=== PATIENT | female | born 1965 | race Caucasian/White ===

== ENCOUNTER 2020-08-12 21:19 | Observation (INO) ==
[2020-08-12] MEDS ORDERED: SODIUM CHLORIDE 0.9% 1000ML 500 ML IV ONE (21:37)
[2020-08-12] MEDS ORDERED: METOPROLOL TARTRATE 1 MG/ML VIAL IV STA (21:43)
[2020-08-12] MEDS ORDERED: METOPROLOL TARTRATE 1 MG/ML VIAL IV ONE (21:45)
[2020-08-12 21:50] LABS: Basophils # (auto) 0.04 K/uL (0-0.2); Basophils % (auto) 0.4 %; Eosinophils % (auto) 2.8 %; Hematocrit (blood only) 45.2 % (37-47); Hemoglobin 15.4 g/dL (12.0-16.0); Immature Granulocytes # (auto) 0.02 K/uL (0.00-0.02); Immature Granulocytes % (auto) 0.2 %; Lymphocytes # (auto) 2.48 K/uL (1.2-3.4); Lymphocytes % (auto) 22.9 %; Mean Corpuscular Hemoglobin 30.1 pg (25-34); Mean Corpuscular Hgb Conc 34.1 g/dL (32-36); Mean Corpuscular Volume 88.3 fL (80-100); Mean Platelet Volume 13.3 fL (7.4-10.4); Monocytes % (auto) 7.4 %; Neutrophils # (auto) 7.19 K/uL (1.4-6.5); Neutrophils % (auto) 66.3 %; Platelet Count 194 K/uL (130-400); RDW Coefficient of Variation 13.7 % (11.5-14.5); RDW Standard Deviation 44.5 fL (36.4-46.3); Red Blood Count 5.12 M/uL (4.2-5.4); White Blood Count 10.83 K/uL (4.8-10.8)
--- NOTE | 2020-08-12 21:53 | Emergency Department Note ---
Impression & Plan Atrial fibrillation with RVR, Chest pain, Encounter for smoking cessation counseling ED Provider Note NAME: KRAIG DUTTON AGE: 54 SEX: F : 1965 ARRIVES VIA: Walk-In INFORMANT: Patient, ED PROVIDER(S): Estevan Baker MD Chief Complaint: Chest pain, palpitation HPI: Patient states that around 8-9 o'clock today the patient was watching television when she had a bout of palpitations. The patient did have some associated chest pain that is central nonradiating. Patient denies any shortness of breath or lower extremity swelling. The patient does use tobacco. The patient denies any alcohol or drug use. Patient states that she has had a history of hypertension as well as A. fib. The patient did have a bout of A. fib proximally 5 years ago. The patient does not take any blood thinning medications. Patient denies any thyroid problems. The patient denies any history of DVT or PE. Patient denies any trauma. Patient believes that she has been hydrating well with a normal diet and appetite. Nothing is made her symptoms any better or worse and they have been persistent during this time. ROS: See HPI for pertinent positives and negatives. A total of 10 systems were reviewed and otherwise negative. Past medical history: See below Surgical history: See below Social history: See below Physical Exam: GENERAL: Wearing a mask. NAD, non-toxic. EYE EXAM: Normal conjunctiva. PERRL, no anisocoria and EOM's grossly intact w/o pain. NECK: Supple, no nuchal rigidity, no adenopathy, non-tender. No signs of meningismus. LUNGS: Clear to auscultation. Normal chest wall mechanics. HEART: Tachycardic and irregularly irregular, no MRG. ABDOMEN: Abdomen soft, non-tender, normo-active bowel sounds, no masses, no rebound or guarding. BACK: No CVA TTP. SKIN: No rashes and no bruising. UPPER EXTREMITIES: Upper extremities are grossly normal. LOWER EXTREMITIES: Grossly normal, no edema. Negative Homans sign bilaterally. NEURO EXAM: A&O x3, cranial nerves II-XII grossly intact, normal speech, moves all 4 extremities on command w/o issue. Differential diagnoses: Premature contractions, electrolyte abnormality, cardiac dysrhythmia, thyroid dysfunction, pulmonary embolism, infection, gastr ointestinal, as well as other pathologies. Course: Patient was seen and evaluated the bedside. Full history physical exam was performed. EKG: Indication: Palpitations A fib w/ RVR, rate of 181, normal QRS and normal axis, ST depressions in lateral and lead 1 and 2. Imaging Studies: 1 view chest x-ray No obvious effusion, consolidation, or pneumothorax. Cardiac monitoring: An order was placed for continuous cardiac monitoring. The monitor shows a rate of 155 with irregularly irregular rhythm. MDM: Patient was seen due to concern for palpitations. The patient does have a recurrence of her A. fib. Patient was given Lopressor given her prior history of Bystolic. Patient was also given IV fluids and blood work was obtained. Blood work shows virtually normal white count of 10.8. The patient's kidney function is unremarkable. The patient does not have a detectable troponin. Ch est x-ray clear by my read. Patient did have improvement in her vital signs including heart rate. The patient was in the low 100s upon reassessment. Heparin drip was ordered. I did speak with the on-call hospitalist and the patient was admitted to the medicine service under Dr. Daniels. Critical Care: I have personally spent 45 minutes of critical care time in direct management of this patient. This includes bedside care, interpretation of diagnostic studies, and testing, discussion with consultants, patient, and family members, and other require inpatient management activities. This 45 minutes is in excess of all separately billable procedures. I counseled patient on smoking cessation for 3 minutes. Treatment options discussed and resources provided. Patient was receptive. 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 Beliefs That Will Affect Care: None Current Living Situation: Significant Other Current Living Situation Comment: LIVES S/O [place] Feels Safe at Home: Yes Allergies Allergies Allergy/AdvReac Type Severity Reaction Status Date / Time Penicillins Allergy Mild Rash Verified 08/12/20 22:34 Home Meds Home Medications Medication Instructions Recorded Confirmed hydrochlorothiazide 25 mg PO QAM 02/25/20 08/12/20 nebivolol [Bystolic] 10 mg PO QAM 02/25/20 08/12/20 amlodipine 10 mg PO DAILY 08/12/20 08/12/20 aspirin 325 mg PO .TODAY 08/12/20 08/12/20 Results & Data (ED) Vital Signs Vital Signs - 24 hr 08/12/20 21:32 08/12/20 21:38 08/12/20 21:49 Temperature 36.7 C Temperature Source Oral Pulse Rate 190 H 186 H Pulse Rate from SpO2 Sensor Pulse Rhythm Irregular Pulse Strength Bounding Respiratory Rate 26 H Respiratory Effort / Characteristics Spontaneous Short of Breath Respiratory Depth Normal Respiratory Pattern Regular Blood Pressure 162/118 H 162/118 H Blood Pressure Mean 132 Blood Pressure Position Lying Pulse Oximetry 95 97 Oxygen Delivery Method Room Air Room Air Sepsis Recent Fever Within 48 Hours No Sepsis New/Unexplained Change in Mental Status No Sepsis Action Taken by Nursing No Action Required 08/12/20 21:50 08/12/20 22:00 08/12/20 22:16 Temperature Temperature Source Pulse Rate 154 H 141 H 153 H Pulse Rate from SpO2 Sensor 125 H 101 H 132 H Pulse Rhythm Pulse Strength Respiratory Rate 14 15 17 Respiratory Effort / Characteristics Respiratory Depth Respiratory Pattern Blood Pressure 169/128 H 170/136 H 170/135 H Blood Pressure Mean 138 147 161 Blood Pressure Position Pulse Oximetry 94 96 95 Oxygen Delivery Method Sepsis Recent Fever Within 48 Hours Sepsis New/Unexplained Change in Mental Status Sepsis Action Taken by Nursing 08/12/20 22:30 08/12/20 22:40 08/12/20 22:46 Temperature Temperature Source Pulse Rate 153 H 150 H 147 H Pulse Rate from SpO2 Sensor 124 H 119 H Pulse Rhythm Pulse Strength Respiratory Rate 19 17 Respiratory Effort / Characteristics Respiratory Depth Respiratory Pattern Blood Pressure 172/134 H 172/134 H 147/119 H Blood Pressure Mean 135 124 Blood Pressure Position Pulse Oximetry 94 94 Oxygen Delivery Method Sepsis Recent Fever Within 48 Hours Sepsis New/Unexplained Change in Mental Status Sepsis Action Taken by Nursing 08/12/20 23:01 08/12/20 23:15 08/12/20 23:22 Temperature Temperature Source Pulse Rate 141 H 139 H 137 H Pulse Rate from SpO2 Sensor 117 H 101 H 119 H Pulse Rhythm Pulse Strength Respiratory Rate 15 20 22 Respiratory Effort / Characteristics Respiratory Depth Respiratory Pattern Blood Pressure 158/117 H 146/128 H 165/132 H Blood Pressure Mean 134 135 140 Blood Pressure Position Pulse Oximetry 96 94 95 Oxygen Delivery Method Room Air Room Air Room Air Sepsis Recent Fever Within 48 Hours Sepsis New/Unexplained Change in Mental Status Sepsis Action Taken by Nursing 08/12/20 23:30 Temperature Temperature Source Pulse Rate 132 H Pulse Rate from SpO2 Sensor 101 H Pulse Rhythm Pulse Strength Respiratory Rate 24 Respiratory Effort / Characteristics Respiratory Depth Respiratory Pattern Blood Pressure 174/124 H Blood Pressure Mean 150 Blood Pressure Position Pulse Oximetry 95 Oxygen Delivery Method Room Air Sepsis Recent Fever Within 48 Hours Sepsis New/Unexplained Change in Mental Status Sepsis Action Taken by [facility] Medications Current Medication List: was personally reviewed by me Laboratory Data Attestation: I reviewed the patient's lab results. Result diagrams: 08/12/20 21:41 08/12/20 21:41 Lab Results 08/12/20 08/12/20 08/12/20 Range/Units 21:41 21:41 21:41 WBC 10.83 H (4.8-10.8) K/uL RBC 5.12 (4.2-5.4) M/uL Hgb 15.4 (12.0-16.0) g/dL Hct 45.2 (37-47) % MCV 88.3 (80-100) fL MCH 30.1 (25-34) pg MCHC 34.1 (32-36) g/dL RDW Std Deviation 44.5 (36.4-46.3) fL RDW Coeff of Lucia 13.7 (11.5-14.5) % Plt Count 194 (130-400) K/uL MPV 13.3 H (7.4-10.4) fL Immature Gran % (Auto) 0.2 % Neut % (Auto) 66.3 % Lymph % (Auto) 22.9 % [place] % (Auto) 7.4 % Eos % (Auto) 2.8 % Baso % (Auto) 0.4 % Neut # (Auto) 7.19 H (1.4-6.5) K/uL Lymph # (Auto) 2.48 (1.2-3.4) K/uL [place] # (Auto) 0.80 H (0.11-0.59) K/uL Eos # (Auto) 0.30 (0-0.5) K/uL Baso # (Auto) 0.04 (0-0.2) K/uL Immature Gran # (Auto) 0.02 (0.00-0.02) K/uL PT 10.1 (9.0-12.0) Seconds INR 1.0 (0.9-1.1) APTT 30.8 (21.0-31.0) Seconds PTT Ratio 1.1 Sodium 143 (136-145) mmol/L Potassium 3.5 (3.5-5.1) mmol/L Chloride 108 H (98-107) mmol/L Carbon Dioxide 24 (21-32) mmol/L Anion Gap 11.0 (3-11) BUN 15 (7-18) mg/dl Creatinine 1.18 (0.6-1.2) mg/dl Est Cr Clr Drug Dosing 57.8 ml/min Est GFR ( Amer) 61.4 Est GFR (Non-Af Amer) 53.0 BUN/Creatinine Ratio 13.1 (10-20) Glucose 121 H (70-99) mg/dl Calcium 9.5 (8.5-10.1) mg/dl Phosphorus 3.9 (2.5-4.9) mg/dl Magnesium 2.3 (1.8-2.4) mg/dl Total Bilirubin 0.6 (0.2-1) mg/dl AST 17 (15-37) U/L ALT 15 (12-78) U/L Alkaline Phosphatase 120 H (45-117) U/L Troponin I < 0.015 (0-0.045) ng/ml Total Protein 8.0 (6.4-8.2) gm/dl Albumin 3.9 (3.4-5.0) gm/dl Globulin 4.1 H (2.5-4.0) gm/dl Albumin/Globulin Ratio 0.9 (0.9-2) Lipase 85 (73-393) U/L Administered Medications Metoprolol Tartrate (Metoprolol Tartrate 1 Mg/Ml Vial) 5 mg IV Q5M PRN PRN Reason: Tachycardia Stop: 09/11/20 21:42 Last Admin: 08/12/20 23:22 Dose: 5 mg Documented by: [id number] Admin: 08/12/20 22:40 Dose: 5 mg Documented by: [id number] Discontinued Medications Sodium Chloride (Nss 1000ml) 500 mls @ 999 mls/hr IV .Q31M ONE Stop: 08/12/20 22:07 Last Infusion: 08/12/20 22:50 Dose: 0 mls/hr Documented by: [id number] Admin: 08/12/20 21:51 Dose: 999 mls/hr Documented by: [id number] Sodium Chloride (Nss) 250 mls @ 999 mls/hr IV .Q16M ONE Stop: 08/12/20 23:10 Last Infusion: 08/12/20 23:46 Dose: 0 mls/hr Documented by: [id number] Admin: 08/12/20 23:21 Dose: 999 mls/hr Documented by: [id number] Metoprolol Tartrate (Metoprolol Tartrate 1 Mg/Ml Vial) 5 mg IV NOW STA Stop: 08/12/20 21:44 Last Admin: 08/12/20 21:49 Dose: 5 mg Documented by: [id number] Metoprolol Tartrate (Metoprolol Tartrate 1 Mg/Ml Vial) Confirm Administered Dose 5 mg IV .STK-MED ONE Stop: 08/12/20 21:46 Last Admin: 08/12/20 21:53 Dose: Not Given Documented by: [id number] Discharge Plan Visit Data Chief Complaint: Chest Pain Stated Complaint: CHEST PAIN ED Provider: Estevan Baker Discharge Problem: Atrial fibrillation with RVR, Chest pain, Encounter for smoking cessation counseling Forms Stand Alone Forms: [employer] Prescriptions Prescriptions: No Action aspirin 325 mg Tablet 325 mg PO .TODAY RF: 0 amlodipine 10 mg Tablet 10 mg PO DAILY RF: 0 hydrochlorothiazide 25 mg Tablet 25 mg PO QAM RF: 0 Bystolic 10 mg Tablet 10 mg PO QAM RF: 0 Discharge Problem: Chest pain Qualifiers: Chest pain type: unspecified Qualified Code(s): R07.9 - Chest pain, unspecified
[2020-08-12 22:05] LABS: Partial Thromboplastin Ratio 1.1; Partial Thromboplastin Time 30.8 Seconds (21.0-31.0); Prothrombin Time 10.1 Seconds (9.0-12.0)
[2020-08-12 22:25] LABS: Alanine Aminotransferase 15 U/L (12-78); Albumin Globulin Ratio 0.9 (0.9-2); Albumin Level 3.9 gm/dl (3.4-5.0); Alkaline Phosphatase 120 U/L (45-117); BUN Creatinine Ratio 13.1 (10-20); Bilirubin,Total 0.6 mg/dl (0.2-1); Blood Urea Nitrogen 15 mg/dl (7-18); Calcium 9.5 mg/dl (8.5-10.1); Carbon Dioxide 24 mmol/L (21-32); Chloride 108 mmol/L (98-107); Creatinine Clr Calc Pharmacy 57.8 ml/min; Est GFR (African American) 61.4; Globulin 4.1 gm/dl (2.5-4.0); Glucose 121 mg/dl (70-99); Lipase 85 U/L (73-393); Phosphorus 3.9 mg/dl (2.5-4.9); Potassium 3.5 mmol/L (3.5-5.1); Sodium 143 mmol/L (136-145); Troponin I < 0.015 ng/ml (0-0.045)
[2020-08-12 22:31] LABS: Aspartate Aminotransferase 17 U/L (15-37); Magnesium 2.3 mg/dl (1.8-2.4)
[2020-08-12] MEDS: METOPROLOL TARTRATE 1 MG/ML VIAL IV PRN ×2 (22:40→23:22)
[2020-08-12] MEDS ORDERED: SODIUM CHLORIDE 0.9% 250 ML IV ONE (22:55)
[2020-08-13] MEDS ORDERED: ALUMINUM/MAGNESIUM SUSP 30 ML UDC PO PRN (01:32)
[2020-08-13] MEDS ORDERED: POLYETHYLENE (MIRALAX) 17 GM PACK PO PRN (01:32)
[2020-08-13] MEDS ORDERED: ACETAMINOPHEN 325 MG TAB PO PRN (01:32)
[2020-08-13] MEDS ORDERED: Heparin IV Standard *NO* Bolus IV SCH (01:32)
[2020-08-13] MEDS ORDERED: ASPIRIN 325 MG ECTAB PO SCH (01:32)
[2020-08-13] MEDS ORDERED: HEPARIN SODIUM/DEXTROSE 25,000 UNITS/500 ML BAG IV SCH (01:32)
[2020-08-13] MEDS: METOPROLOL TARTRATE 1 MG/ML VIAL IV PRN ×3 (02:34→03:10)
[2020-08-13] MEDS: POTASSIUM CHLORIDE / WTR 10 MEQ/100 ML PLCT IV SCH ×4 (02:57→06:19)
[2020-08-13] MEDS: SODIUM CHLORIDE 0.9% 1000ML 1,000 ML IV SCH ×2 (03:18→15:56)
--- NOTE | 2020-08-13 04:36 | History & Physical Report ---
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 Optimizing Potassium goal of 4 Patient scored 2 on chads vascular, 2.2% annual stroke risk discussed risk benefits of anticoagulation patient would like to anticoagulate at this time, will order heparin drip for now and convert to direct factor X a inhibitor of patient's insurance choosing on discharge Case management consulted for help in this regard Chest pain Patient with chest pain, likely secondary to palpitations, not present at present Troponin negative x1 we will continue to trend history of catheterization without any evidence of vascular disease at the time several years ago per patient EKG with any chest pain and reassessment Fluid/electrolyte/nutrition: Heart healthy diet, LR at 80 mils per hour with K riders DVT prophylaxis: Heparin drip Dispel: Admit to med telemetry for rate management and continue monitoring Full code (2) Chest pain: (3) Encounter for smoking cessation counseling: Admission and Anticipated Discharge Date Admission Date: August 13, 2020 History of Present Illness Chief Complaint: Chest Pain, Palpitations Primary Care Provider: Carlos Allen with past medical history of atrial fibrillationIs a 54-year-old woman patient is 52-year-old woman past medical history of atrial fibrillation and hypertension who presents today with several hours of chest pain and her palpitations. She has had a similar presentation 5 years ago when she was first diagnosed atrial fibrillation since that time she is been on Bystolic amlodipine and hydrochlorothiazide as well as daily aspirin. She did have a cardiac catheterization to look for possible ischemic heart disease, but that was a negative study. She has not had this sensation since that time. Currently chest pain is improved although heart is still racing on presentation emergency department patient had heart rates in the 130s and 140s, blood pressure was hypertensive respirate temp and O2 sats within normal limits on room air. Patient denies any recent infections denies fevers chills shortness of breath any breathing troubles, cough, sick contacts, recent travel. Patient also denies any other symptoms on review of systems no abdominal pain nausea vomiting, change in bowel habits, change in urination, skin rashes, muscle ache s. Lab work in the emergency department was significant for a potassium of 3.5 glucose 121 no history of diabetes. Magnesium and phosphorus within normal limits ECG without acute ST changes and showing atrial fibrillation. Chest x- ray negative Allergies Allergy/AdvReac Type Severity Reaction Status Date / Time Penicillins Allergy Mild Rash Verified 08/12/20 22:34 Home Medications Home Medications Medication Instructions Recorded Confirmed Type hydrochlorothiazide 25 mg PO QAM 02/25/20 08/12/20 History nebivolol [Bystolic] 10 mg PO QAM 02/25/20 08/12/20 History amlodipine 10 mg PO DAILY 08/12/20 08/12/20 History aspirin 325 mg PO .TODAY 08/12/20 08/12/20 History Past Med/Surg History Medical History Heart burn Hypertension Obesity Surgical History H/O laparoscopy X 2 History of appendectomy History of cardiac cath [facility] 2014 (NO STENTS) History of dilatation and curettage History of tooth extraction Hx of hysterectomy Family History Grandmother (Maternal) Family history of diabetes mellitus Social History Smoking Status: Current every day smoker Cigarettes Per Day: 27-37 mg of nicotene/day; Second Hand Exposure: Yes (MOTHER SMOKES); Hx Alcohol Use: Yes Alcohol type: hard liquor Hx Substance Use: No Preferred Language: Kiswahili Communication Ability: Effective 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 Beliefs That Will Affect Care: None Current Living Situation: Spouse Current Living Situation Comment: lives with fiance Feels Safe at Home: Yes Safety Concerns: Feels Safe At This Time Review of Systems Review of Systems: All systems reviewed & are unremarkable except as noted in HPI & below Physical Exam Constitutional: well developed and well nourished; no acute distress Eyes: PERRL, conjunctivae normal, anicteric sclerae ENMT: external ear and nose normal, oropharynx normal Respiratory: normal respiratory effort, lungs clear to auscultation Cardiovascular: Rate/Rhythm: + tachycardic; + abnormal rate and + abnormal rhythm Heart Sounds: normal S1 and normal S2; no murmur and no cardiac rub Palpation: normal PMI Vessels: normal peripheral pulses Extremities: no calf tenderness Irregularly irregular Gastrointestinal (Abdomen): normal bowel sounds, soft, nontender, no hepatosplenomegaly Skin: no rashes, warm and dry Results & Data Results & Data ([facility]) Vital Signs (Past 12 Hours) Vital Signs Temp Pulse Resp BP Pulse Ox 08/13/20 00:46 127 H 142/106 H 95 08/13/20 00:31 140 H 150/96 H 94 08/13/20 00:15 147 H 19 155/104 H 95 08/13/20 00:01 144 H 22 145/114 H 96 08/12/20 23:46 134 H 22 187/88 H 95 08/12/20 23:30 132 H 24 174/124 H 95 08/12/20 23:22 137 H 22 165/132 H 95 08/12/20 23:15 139 H 20 146/128 H 94 08/12/20 23:01 141 H 15 158/117 H 96 08/12/20 22:46 147 H 17 147/119 H 94 08/12/20 22:40 150 H 172/134 H 08/12/20 22:30 153 H 19 172/134 H 94 08/12/20 22:16 153 H 17 170/135 H 95 08/12/20 22:00 141 H 15 170/136 H 96 08/12/20 21:50 154 H 14 169/128 H 94 08/12/20 21:49 186 H 162/118 H 08/12/20 21:38 97 08/12/20 21:32 36.7 C 190 H 26 H 162/118 H 95 Code Status & VTE Plan VTE Prophylaxis Plan VTE Prophylaxis will be ordered: Yes Supervising Physician Co-Signing Physician Notes Attending addendum: I have physically seen this patient, have supervised the medical residents activities, and agree with the H&P unless as otherwise noted. Assessment and Plan: Atrial fibrillation with RVR- The patient will be admitted to telemetry for serial cardiac enzymes, serial EKG's, cardiac rhythm monitoring and a 2-D echocardiogram with Dopplers. Hold amlodipine and HCTZ. Continue aspirin and Bystolic. Manage rate with either Lopressor 5 mg IV and or Cardizem 10 mg IV. Target magnesium level to be 2 and potassium to be 4. We need to discuss long-term anticoagulation with patient with a CHADS-Vasc score of 2. Consult cardiology Remainder of orders and notations as noted. Resident Activity Tracking Resident Involvement: Resident Care Provided Care Provided: Adult Hospital Medicine (1) Chest pain Chest pain type: unspecified Qualified Code(s): R07.9 - Chest pain, unspecified
[2020-08-13 06:02] LABS: Basophils # (auto) 0.03 K/uL (0-0.2); Basophils % (auto) 0.3 %; Eosinophils # (auto) 0.11 K/uL (0-0.5); Eosinophils % (auto) 1.2 %; Hematocrit (blood only) 39.4 % (37-47); Immature Granulocytes # (auto) 0.01 K/uL (0.00-0.02); Immature Granulocytes % (auto) 0.1 %; Lymphocytes # (auto) 2.35 K/uL (1.2-3.4); Lymphocytes % (auto) 25.3 %; Mean Corpuscular Hemoglobin 29.5 pg (25-34); Mean Corpuscular Volume 89.5 fL (80-100); Mean Platelet Volume 13.1 fL (7.4-10.4); Monocytes # (auto) 0.63 K/uL (0.11-0.59); Monocytes % (auto) 6.8 %; Neutrophils # (auto) 6.17 K/uL (1.4-6.5); Neutrophils % (auto) 66.3 %; Platelet Count 168 K/uL (130-400); RDW Coefficient of Variation 13.9 % (11.5-14.5)
[2020-08-13] MEDS ORDERED: STAT IV Infusion **Titration per Protocol STA (06:45)
[2020-08-13 06:49] LABS: Albumin Globulin Ratio 0.9 (0.9-2); Albumin Level 3.1 gm/dl (3.4-5.0); BUN Creatinine Ratio 19.1 (10-20); Bilirubin,Total 0.4 mg/dl (0.2-1); Calcium 8.5 mg/dl (8.5-10.1); Creatinine Clr Calc Pharmacy 77.1 ml/min; Est GFR (African American) 87.6; Est GFR (Non-African American) 75.5; Globulin 3.3 gm/dl (2.5-4.0); Thyroid Stimulating Hormone 1.17 uIu/ml (0.300-4.500); Total Protein 6.4 gm/dl (6.4-8.2); Troponin I 0.68 ng/ml (0-0.045)
[2020-08-13] MEDS: dilTIAZem HCL 125 MG in DEXTROSE 5% 100 ML IV SCH (07:17)
--- NOTE | 2020-08-13 07:27 | Hospitalist Progress Note ---
Date of Service August 13, 2020 Assessment & Plan (1) Atrial fibrillation with RVR: Patient 52-year-old woman past with history of atrial fibrillation here for RVR and chest pain Atrial fibrillation with RVR and chest pain Patient tachycardic 140s given 2 doses of 5 mg Lopressor IV emergency department rates down to the 120s Cardiology is seen patient's to start her carvedilol 6.25-day valsartan 160 a day transition heparin drip to apixaban. If blood pressure control still needed may add back amlodipine. And will use spironolactone instead of hydrochlorothiazide if blood pressure control still needs to be augmented with regard to that. Discussion with patient does not convert to sinus rhythm would be to possibly cardiovert her the next few days. second troponin is 0.68, will have cardiology weigh in on this issue Patient scored 2 on chads vascular, 2.2% annual stroke risk discussed risk benefits of anticoagulation patient started on apixaban at this time Chest pain Patient with chest pain, likely secondary to rate troponin elevation likely to demand ischemia audiology will follow and make further recommendations. first troponin negative, second positive Cardiac catheterization 2014 in [place], reportedly had recent biomarkers at that time to suggest an [place]. Overall is nonobstructive coronary disease. EF at that time was 60%. Circumflex was noted to have a 30% stenosis the rest were luminal irregularities DVT prophylaxis: Heparin drip Dispel: Admit to med telemetry for rate management and continue monitoring Full code (2) Chest pain: (3) Encounter for smoking cessation counseling: Tobacco cessation counseling was offered Admission and Anticipated Discharge Date Admission Date: August 13, 2020 Subjective Patient is no further chest pain she continues to be in atrial fibrillation cardiology has seen her and they are mostly concerned about getting her atrial fibrillation are controlled at this time she cannot sense her palpitations Review of Systems Review of Systems: Mild distress and fatigue no headache, blurry or double vision no speech or swallowing issues She describes her chest pain as a pressure sensation Mild shortness of breath, cough or wheezes no abdominal pain, nausea or vomiting, diarrhea or constipation no dysuria, hematuria or frequency no focal joint pain or swelling no back pain, CVA tenderness or radicular pain no bruising, bleeding or rashes no focal signs of weakness or numbness or altered sensation no complaints or anxiety or depression. Physical Exam Physical Exam: The patient appeared well nourished and normally developed. Vital signs as documented. Head exam is normocephalic atraumatic no scleral icterus Neck is without JVD, thyromegaly, or carotid bruits. Lungs are clear to auscultation, no focal loss of breath sounds Cardiac exam, irregularly irregular but rate around 100. Abdominal exam reveals normal bowel sounds, soft non tender, no masses Extremities are nonedematous and both pedal pulses are normal. Neurologic exam is alert and oriented, no focal loss of strength or sensation Skin is without bruises or rashes Psychologically is without concerns for anxiety or depression. Results & Data Results & Data ([facility]) Vital Signs (Past 12 Hours) Vital Signs Temp Pulse Pulse Resp BP BP Pulse Ox 08/13/20 07:20 98.6 F 89 18 154/91 H 95 08/13/20 06:31 98.4 F 137 H 16 151/95 H 95 08/13/20 05:43 134 H 18 152/92 H 93 08/13/20 05:40 131 H 08/13/20 03:54 106 H 08/13/20 03:10 138 H 140/96 08/13/20 02:48 137 H 136/95 08/13/20 02:34 144 H 145/94 H 08/13/20 01:25 98.2 F 112 H 16 150/83 H 95 08/13/20 00:46 127 H 142/106 H 95 08/13/20 00:31 140 H 150/96 H 94 08/13/20 00:15 147 H 19 155/104 H 95 08/13/20 00:01 144 H 22 145/114 H 96 08/12/20 23:46 134 H 22 187/88 H 95 08/12/20 23:30 132 H 24 174/124 H 95 08/12/20 23:22 137 H 22 165/132 H 95 08/12/20 23:15 139 H 20 146/128 H 94 08/12/20 23:01 141 H 15 158/117 H 96 08/12/20 22:46 147 H 17 147/119 H 94 08/12/20 22:40 150 H 172/134 H 08/12/20 22:30 153 H 19 172/134 H 94 08/12/20 22:16 153 H 17 170/135 H 95 08/12/20 22:00 141 H 15 170/136 H 96 08/12/20 21:50 154 H 14 169/128 H 94 08/12/20 21:49 186 H 162/118 H 08/12/20 21:38 97 08/12/20 21:32 98.1 F 190 H 26 H 162/118 H 95 PG Care Time/CCT Total # of Minutes Spent Total Time Spent with Patient: Total time spent is greater than 50% in coordination of care (as documented) at patient's floor/unit and/or counseling patient: Coding Level of Care Code 19096 Subseq Hosp Care Lvl 3 Diagnoses Atrial fibrillation with RVR I48.91 Chest pain R07.9 Chest pain type: unspecified Encounter for smoking cessation counseling Z71.6 (1) Chest pain Chest pain type: unspecified Qualified Code(s): R07.9 - Chest pain, unspecified
--- NOTE | 2020-08-13 08:12 | XRay Report ---
XR chest 1V portable CLINICAL HISTORY: Atypical chest pain COMPARISON STUDY: 06/13/2011 FINDINGS: The heart is the upper limits of normal in size. There is subtle nonspecific interstitial t hickening. There is no focal pulmonary consolidation. There are no pleural effusions.[ IMPRESSION: 1. No evidence of focal pulmonary consolidation 2. Subtle interstitial prominence a finding which may in part be secondary to the patient's body habi tus. ACT 112: Negative or not required by law. Electronically signed by: Rey Brennan M.D. 08/13/2020 8:11 AM
[2020-08-13] MEDS ORDERED: INSULIN GLARGINE SOLOSTAR 100 UNITS/ML 3 ML PEN SC ONE (08:30)
[2020-08-13] MEDS: ASPIRIN 325 MG ECTAB PO SCH (08:54)
[2020-08-13 08:56] LABS: Partial Thromboplastin Ratio 2.4
[2020-08-13] MEDS ORDERED: hydroCHLOROthiazide 25 MG TAB PO SCH (09:00)
[2020-08-13] MEDS ORDERED: METOPROLOL TARTRATE 50 MG TAB PO SCH (09:00)
[2020-08-13 09:02] LABS: Partial Thromboplastin Time 65.8 Seconds (21.0-31.0)
--- NOTE | 2020-08-13 12:28 | Cardiology Consultation ---
Date of Consultation Patient notes that last evening at about 8:30 PM she went into atrial fibrillation with a rapid ventricular response. She notes she had an episode similar to this 5 years ago. In between she has not had any episodes of A. fib. She is symptomatic in the sense that she feels her heart racing and is having fluttering she also describes fatigue associated with it she denies any lightheadedness or dizziness with it. She did not consume any alcohol yesterday or eat anything unusual. It does not sound like there was a specific trigger to her event. She does snore and has some mild daytime somnolence. She has any bleeding bruising dark stools or black stools. She denies any upcoming surgery or colonoscopy or tooth extraction. She denies any chest pain or chest pressure currently she is unaware of any palpitations now with her heart rate improved on the diltiazem drip. 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 She drinks about a pot of coffee a day. In addition she does smoke. She has 5 steps to get into her house and denies any shortness of breath with that. She is able to grocery shop and carry the groceries into the house without any dyspnea. She has a cough fevers chills or sweats. She has any symptoms of hyperthyroidism and her TSH was normal. The resting complete review of systems otherwise negative August 13, 2020 History of Present Illness Attending Physician: Dev Caldwell MD Allergies Allergy/AdvReac Type Severity Reaction Status Date / Time Penicillins Allergy Mild Rash Verified 08/12/20 22:34 Home Medications Home Medications Medication Instructions Recorded Confirmed Type hydrochlorothiazide 25 mg PO QAM 02/25/20 08/12/20 History nebivolol [Bystolic] 10 mg PO QAM 02/25/20 08/12/20 History amlodipine 10 mg PO DAILY 08/12/20 08/12/20 History aspirin 325 mg PO .TODAY 08/12/20 08/12/20 History Patient History Medical History Heart burn Hypertension Obesity Surgical History H/O laparoscopy X 2 History of appendectomy History of cardiac cath [facility] 2014 (NO STENTS) History of dilatation and curettage History of tooth extraction Hx of hysterectomy Family History Grandmother (Maternal) Family history of diabetes mellitus Social History Smoking Status: Current every day smoker Cigarettes Per Day: 27-37 mg of nicotene/day; Second Hand Exposure: Yes (MOTHER SMOKES); Hx Alcohol Use: Yes Alcohol type: hard liquor Hx Substance Use: No Preferred Language: [place] Communication Ability: Effective Metal Treater Required: No Beliefs That Will Affect Care: None Current Living Situation: Spouse Current Living Situation Comment: lives with fiance Feels Safe at Home: Yes Safety Concerns: Feels Safe At This Time Results & Data ([facility]) Vital Signs (Past 12 Hours) Vital Signs Temp Pulse Pulse Resp BP BP Pulse Ox 08/13/20 12:16 164/121 H 08/13/20 11:20 36.7 C 65 17 95 08/13/20 08:46 101 H 168/75 H 08/13/20 07:20 37.0 C 89 18 154/91 H 95 08/13/20 06:31 36.9 C 137 H 16 151/95 H 95 08/13/20 05:43 134 H 18 152/92 H 93 08/13/20 05:40 131 H 08/13/20 03:54 106 H 08/13/20 03:10 138 H 140/96 08/13/20 02:48 137 H 136/95 08/13/20 02:34 144 H 145/94 H 08/13/20 01:25 36.8 C 112 H 16 150/83 H 95 08/13/20 00:46 127 H 142/106 H 95 08/13/20 00:31 140 H 150/96 H 94 HEENT: 2+ carotid upstrokes, no evidence of carotid bruits, jugular venous pressure was normal. Sclera was anicteric. Hearing was normal .Lungs: Clear to auscultation bilaterally no rales rhonchi wheezing Heart: irregular rate and rhythm no appreciable murmurs rubs or gallops Abdomen: soft nontender nondistended positive bowel sounds Extremities: no clubbing cyanosis or edema Psychiatric: She has normal affect Neurologic: She is awake alert and oriented x3 and answers questions appropriately and moves all extremities Her EKG and echocardiogram and laboratory studies were review Impressions: 1. Atrial fibrillation with a rapid ventricular response with a chads 2 Vasc Score of 2 2. Preserved left ventricular systolic function with moderate to severe concentric left ventricular hypertrophy 3. Longstanding hypertension 4. Possible obstructive sleep apnea 5. Minimal troponin elevation likely demand ischemia based on her heart rate and the fact that she has such a thick ventricle I made the following recommendations: stop her heparin and switch her over to apixaban 5 mg twice daily stop her outpatient beta-lester Bystolic which is not very good at lowering blood pressure and switch her over to carvedilol 6.25 mg twice daily Stop her hydrochlorothiazide Add valsartan 160 mg daily to her medical regimen If she continues to be hypertensive then spironolactone would be a better option than hydrochlorothiazide but I would try to uptitrate her valsartan to the max dose first When she is off the Cardizem drip, which can be weaned, amlodipine can be restarted. Her atrial fibrillation started last night at 8:30 PM she was on anticoagulation well within 48 hours. If she does not convert to sinus rhythm on her own we discussed elective cardioversion to restore sinus rhythm especially in light of her being symptomatic.I discussed the risks and benefits to cardioversion with her in detail. Hopefully she will convert into sinus rhythm overnight if not cardioversion could potentially be performed Friday afternoon or Friday. She will need an outpatient sleep study. All this was discussed with the hospitalist service as well as the patient and her
[2020-08-13] MEDS: VALSARTAN 80 MG TAB PO SCH (14:07)
[2020-08-13] MEDS: APIXABAN 5 MG TABLET PO SCH ×2 (14:07→20:01)
--- NOTE | 2020-08-13 19:25 | Billing Data ---
Date of Service August 13, 2020 Coding Level of Care Code 63999 Initial Inpt Care Lvl 3
[2020-08-13] MEDS: carvediloL 6.25 MG TAB PO SCH (20:01)
[2020-08-14] MEDS: dilTIAZem HCL 125 MG in DEXTROSE 5% 100 ML IV SCH (02:23)
[2020-08-14 04:47] LABS: Basophils # (auto) 0.03 K/uL (0-0.2); Basophils % (auto) 0.4 %; Eosinophils # (auto) 0.24 K/uL (0-0.5); Hematocrit (blood only) 41.6 % (37-47); Hemoglobin 13.6 g/dL (12.0-16.0); Immature Granulocytes # (auto) 0.02 K/uL (0.00-0.02); Immature Granulocytes % (auto) 0.2 %; Lymphocytes # (auto) 2.63 K/uL (1.2-3.4); Lymphocytes % (auto) 32.5 %; Mean Corpuscular Hemoglobin 29.6 pg (25-34); Mean Corpuscular Hgb Conc 32.7 g/dL (32-36); Mean Corpuscular Volume 90.6 fL (80-100); Mean Platelet Volume 12.9 fL (7.4-10.4); Monocytes # (auto) 0.55 K/uL (0.11-0.59); Monocytes % (auto) 6.8 %; Neutrophils # (auto) 4.63 K/uL (1.4-6.5); Neutrophils % (auto) 57.1 %; Platelet Count 171 K/uL (130-400); RDW Coefficient of Variation 13.9 % (11.5-14.5); RDW Standard Deviation 45.8 fL (36.4-46.3); Red Blood Count 4.59 M/uL (4.2-5.4)
[2020-08-14 04:56] LABS: Partial Thromboplastin Ratio 1.2; Partial Thromboplastin Time 33.8 Seconds (21.0-31.0)
[2020-08-14] MEDS: SODIUM CHLORIDE 0.9% 1000ML 1,000 ML IV SCH (07:41)
[2020-08-14] MEDS: VALSARTAN 80 MG TAB PO SCH (07:42)
[2020-08-14] MEDS: APIXABAN 5 MG TABLET PO SCH (07:42)
[2020-08-14] MEDS: carvediloL 6.25 MG TAB PO SCH (07:42)
[2020-08-14] MEDS: ASPIRIN 325 MG ECTAB PO SCH (07:42)
--- NOTE | 2020-08-14 07:49 | Cardiology Progress Note ---
Date of Service August 14, 2020 Assessment & Plan Admission and Anticipated Discharge Date Admission Date: August 13, 2020 Subjective She feels well this morning. She does not feel any palpitations. She denies any lightheadedness or dizziness. She denies any shortness of breath. She had no dizziness getting out of bed to the chair. She remains on diltiazem at 5 mg/h. When attempting to wean the diltiazem her heart rates going to the 1 teens and 20s. In reviewing her equipment monitor phototypesetting she remains in atrial fibrillation. She denies any presyncope syncope or lower extremity edema. She notes she slept wel l last evening. Results & Data ([facility]) Vital Signs (Past 12 Hours) Vital Signs Temp Pulse Pulse Resp BP Pulse Ox 08/14/20 07:38 130/90 08/14/20 07:19 36.8 C 99 H 18 93 08/14/20 03:45 36.8 C 76 18 157/106 H 94 08/13/20 23:46 87 08/13/20 23:25 36.9 C 88 18 143/91 H 92 HEENT: 2+ carotid upstrokes, no evidence of carotid bruits, jugular venous pressure was normal. Sclera was anicteric. Hearing was normal .Lungs: Clear to auscultation bilaterally no rales rhonchi wheezing Heart: irregular rate and rhythm no appreciable murmurs rubs or gallops Abdomen: soft nontender nondistended positive bowel sounds Extremities: no clubbing cyanosis or edema Psychiatric: She has normal affect Neurologic: She is awake alert and oriented x3 and answers questions appropriately and moves all extremities Her EKG and echocardiogram and laboratory studies were review Impressions: 1. Atrial fibrillation with a rapid ventricular response with a chads 2 Vasc Score of 2 2. Preserved left ventricular systolic function with moderate to severe concentric left ventricular hypertrophy 3. Longstanding hypertension 4. Possible obstructive sleep apnea 5. Minimal troponin elevation likely demand ischemia based on her heart rate and the fact that she has such a thick ventricle We will attempt to cardiovert her this afternoon if we can arrange this with anesthesia on the cardiac catheterization lab as well as the [facility] physician group attending. I discussed the risks and benefits of cardioversion with her in detail. Assuming she can be cardioverted this afternoon, she could be discharged home and I would discharge her on the following medications: 1. Coreg 12-1/2 mg twice daily 2. Amlodipine 10 mg daily 3. Valsartan 160 mg daily 4. Apixaban 5 mg twice daily She will need 10 to 14-day follow-up in the office. Given the severity of her left ventricular hypertrophy which is in the moderate to severe range I would consider genetic testing to rule out HCM on the outside chance she has some genetic variant. Further recommendations will be forthcoming
--- NOTE | 2020-08-14 09:15 | Electrocardiogram Report ---
Test Reason : Blood Pressure : / mmHG Vent. Rate : 181 BPM Atrial Rate : 170 BPM P-R Int : 000 ms QRS Dur : 086 ms QT Int : 264 ms P-R-T Axes : 000 005 193 degrees QTc Int : 458 ms Atrial fibrillation with rapid ventricular response with premature ventricular or aberrantly conducte d complexes Marked ST abnormality, possible inferolateral subendocardial injury Abnormal ECG When compared with ECG of 15-FEB-2020 11:34, Significant changes have occurred Confirmed by Nael Austin ([id number]) on 08/14/2020 9:14:47 AM Referred By: REFERRED SELF Confirmed By:Nael Austin
--- NOTE | 2020-08-14 10:16 | Hospitalist Progress Note ---
Date of Service August 14, 2020 Assessment & Plan (1) Atrial fibrillation with RVR: Patient 52-year-old woman past with history of atrial fibrillation here for RVR and chest pain Atrial fibrillation with RVR and chest pain Patient tachycardic 140s given 2 doses of 5 mg Lopressor IV emergency department rates down to the 120s HR better today on diltiazem drip, 90-100 at rest, up to 130-140 when walking to the bathroom and washing up cardiology recommends cardioversion, unfortunately it cannot be done today, plan for tomorrow morning at 730am continue Apixaban for full anticoagulation on Coreg, dose increased to 12.5mg BID for BP control likely home tomorrow after cardioversion Patient scored 2 on chads vascular, 2.2% annual stroke risk discussed risk benefits of anticoagulation patient started on apixaban at this time Chest pain due to afib with RVR, no further symptoms troponin bumped to 0.68, represents demand ischemia, not a true NSTEMI Cardiac catheterization 2015 in [place], Overall is nonobstructive coronary dis ease. EF at that time was 60%. Circumflex was noted to have a 30% stenosis the rest were luminal irregularities DVT prophylaxis: apixaban Full code (2) Chest pain: no further episodes, it was due to afib with RVR (3) Encounter for smoking cessation counseling: Tobacco cessation counseling was offered (4) Hypertension: not adequately controlled on admission will increase Coreg to 12.5mg BID (this was changed from Bystolic) continue Valsartan 160mg daily once off the Diltiazem drip can resume Norvasc 10mg daily BP is better this morning, continue above regimen Admission and Anticipated Discharge Date Admission Date: August 13, 2020 Subjective patient remains in atrial fibrillation, HR in the 90-100s at rest, up to 130- 140's on exertion remains on diltiazem 5mg/hr spoke with Dr Lama, planned for cardioversion, unfortunately anesthesia is not available today will allow her to eat and plan for cardioversion tomorrow morning, NPO after midnight reviewed chart, reviewed labs appreciate Dr. Lama's recommendations for medication changes, her blood pressure is better on Coreg, Valsartan Review of Systems Review of Systems: All systems reviewed & are unremarkable except as noted in Subjective Constitutional: no fever, no chills and no sweats Respiratory: no cough and no dyspnea Cardiovascular: no chest pain, no dyspnea, no palpitations and no edema Gastrointestinal: no abdominal pain, no nausea, no vomiting, no constipation and no diarrhea/loose stools Physical Exam Constitutional: well developed, well nourished and + overweight; no acute distress Eyes: PERRL, conjunctivae normal, anicteric sclerae ENMT: external ear and nose normal, oropharynx normal Neck: trachea midline, no thyromegaly Respiratory: normal respiratory effort, lungs clear to auscultation Cardiovascular: Rate/Rhythm: regular rate and + irregularly irregular Heart Sounds: normal S1 and normal S2; no murmur Vessels: no JVD Extremities: normal capillary refill; no edema Gastrointestinal (Abdomen): normal bowel sounds, soft, nontender, no hepatosplenomegaly Musculoskeletal: no cyanosis or clubbing, extremities motor strength 5/5 Skin: no rashes, warm and dry Neurologic: patellar DTR's 2+ bilat, sensation intact and PERRL, EOMI, accommodation nl, no face palsy, no dysarthria Psychiatric: A+Ox3, euthymic affect Lymphatic: no cervical or axillary lymphadenopathy Results & Data Results & Data ([facility]) Vital Signs (Past 12 Hours) Vital Signs Temp Pulse Pulse Resp BP Pulse Ox 08/14/20 07:38 130/90 08/14/20 07:19 36.8 C 99 H 18 93 08/14/20 03:45 36.8 C 76 18 157/106 H 94 08/13/20 23:46 87 08/13/20 23:25 36.9 C 88 18 143/91 H 92 Laboratory Results Laboratory Results - last 24 hr 08/13/20 08/14/20 08/14/20 10:44 04:36 04:36 WBC 8.10 RBC 4.59 Hgb 13.6 Hct 41.6 MCV 90.6 MCH 29.6 MCHC 32.7 RDW Std Deviation 45.8 RDW Coeff of Lucia 13.9 Plt Count 171 MPV 12.9 H Immature Gran % (Auto) 0.2 Neut % (Auto) 57.1 Lymph % (Auto) 32.5 [place] % (Auto) 6.8 Eos % (Auto) 3.0 Baso % (Auto) 0.4 Neut # (Auto) 4.63 Lymph # (Auto) 2.63 [place] # (Auto) 0.55 Eos # (Auto) 0.24 Baso # (Auto) 0.03 Immature Gran # (Auto) 0.02 APTT 33.8 H PTT Ratio 1.2 Troponin I 0.671 H* Medications Administered Current Inpatient Medications Acetaminophen (Acetaminophen 325 Mg Tab) 650 mg PO Q4H PRN PRN Reason: Pain or Fever Stop: 09/12/20 01:31 Al Hydrox/Mg Hydrox/Simethicone (Aluminum/Magnesium Susp 30 Ml Udc) 15 ml PO Q4H PRN PRN Reason: Dyspepsia Stop: 09/12/20 01:31 Apixaban (Apixaban 5 Mg Tablet) 5 mg PO BID [facility] Stop: 09/12/20 12:29 Last Admin: 08/14/20 07:42 Dose: 5 mg Documented by: Aspirin (Aspirin 325 Mg Ectab) 325 mg PO DAILY [facility] Stop: 09/12/20 08:59 Last Admin: 08/14/20 07:42 Dose: 325 mg Documented by: Carvedilol (Carvedilol 12.5 Mg Tab) 12.5 mg PO BID [facility] Stop: 09/13/20 20:59 Sodium Chloride (Nss 1000ml) 1,000 mls @ 15 mls/hr IV .Q24H [facility] Stop: 09/12/20 01:31 Last Admin: 08/14/20 07:41 Dose: 15 mls/hr Documented by: Diltiazem HCl 125 mg/ Dextrose 125 mls @ 5 mls/hr IV .Q24H ELISHA; Protocol Stop: 09/12/20 06:59 Last Titration: 08/14/20 07:23 Dose: 5 mg/hr, 5 mls/hr Documented by: Miscellaneous (Pending Order) 1 ea N/A QSHIFT [facility] Stop: 09/12/20 15:59 Last Admin: 08/14/20 07:22 Dose: Not Given Documented by: Polyethylene Glycol (Polyethylene (Miralax) 17 Gm Pack) 17 gm PO DAILY PRN PRN Reason: Constipation Stop: 09/12/20 01:31 Valsartan (Valsartan 80 Mg Tab) 160 mg PO QAM [facility] Stop: 09/12/20 12:59 Last Admin: 08/14/20 07:42 Dose: 160 mg Documented by: PG Care Time/CCT Total # of Minutes Spent Total Time Spent with Patient: Total time spent is greater than 50% in coordination of care (as documented) at patient's floor/unit and/or counseling patient: Coding Level of Care Code 03124 Subseq Hosp Care Lvl 2 Diagnoses Atrial fibrillation with RVR I48.91 Chest pain R07.9 Chest pain type: unspecified Encounter for smoking cessation counseling Z71.6 Hypertension I10 (1) Chest pain Chest pain type: unspecified Qualified Code(s): R07.9 - Chest pain, unspecified
--- NOTE | 2020-08-14 14:08 | Electrocardiogram Report ---
Test Reason : Blood Pressure : / mmHG Vent. Rate : 066 BPM Atrial Rate : 066 BPM P-R Int : 146 ms QRS Dur : 080 ms QT Int : 462 ms P-R-T Axes : 041 016 034 degrees QTc Int : 484 ms Poor data quality, interpretation may be adversely affected Normal sinus rhythm Poor R-wave progression: anterior [place] vs. lead placement vs. LVH Abnormal ECG When compared with ECG of 12-AUG-2020 21:29, Significant changes have occurred Confirmed by Nael Austin ([id number]) on 08/14/2020 2:08:01 PM Referred By: REFERRED SELF Confirmed By:Nael Austin
--- NOTE | 2020-08-14 15:40 | Discharge Summary ---
Date of Service August 14, 2020 Admission HPI Per Admitting Provider with past medical history of atrial fibrillationIs a 54-year-old woman patient is 52-year-old woman past medical history of atrial fibrillation and hypertension who presents today with several hours of chest pain and her palpitations. She has had a similar presentation 5 years ago when she was first diagnosed atrial fibrillation since that time she is been on Bystolic amlodipine and hydrochlorothiazide as well as daily aspirin. She did have a cardiac catheterization to look for possible ischemic heart disease, but that was a negative study. She has not had this sensation since that time. Currently chest pain is improved although heart is still racing on presentation emergency department patient had heart rates in the 130s and 140s, blood pressure was hypertensive respirate temp and O2 sats within normal limits on room air. Patient denies any recent infections denies fevers chills shortness of breath any breathing troubles, cough, sick contacts, recent travel. Patient also denies any other symptoms on review of systems no abdominal pain nausea vomiting, change in bowel habits, change in urination, skin rashes, muscle aches. Lab work in the emergency department was significant for a potassium of 3.5 glucose 121 no history of diabetes. Magnesium and phosphorus within normal limits ECG without acute ST changes and showing atrial fibrillation. Chest x- ray negative Principal Diagnosis Atrial fibrillation with RVR, converted to sinus rhythm Discharge Exam Constitutional well developed, well nourished and + overweight; no acute distress Eyes PERRL, conjunctivae normal, anicteric sclerae ENMT external ear and nose normal, oropharynx normal Neck trachea midline, no thyromegaly Respiratory normal respiratory effort, lungs clear to auscultation Cardiovascular Rate/Rhythm: regular rate and regular rhythm Heart Sounds: normal S1 and normal S2; no murmur Vessels: no JVD Extremities: normal capillary refill; no edema Gastrointestinal (Abdomen) normal bowel sounds, soft, nontender, no hepatosplenomegaly Musculoskeletal no cyanosis or clubbing, extremities motor strength 5/5 Skin no rashes, warm and dry Neurologic patellar DTR's 2+ bilat, sensation intact and PERRL, EOMI, accommodation nl, no face palsy, no dysarthria Psychiatric A+Ox3, euthymic affect Lymphatic no cervical or axillary lymphadenopathy Discharge Data Allergies Allergy/AdvReac Type Severity Reaction Status Date / Time Penicillins Allergy Mild Rash Verified 08/12/20 22:34 Consultations 08/12/20 22:33 ED Decision to Admit Stat 08/13/20 04:53 Consult Case Management - Discharge Planning Routine 08/13/20 07:32 Consult Cardiology Routine Procedures Performed Operation Date: 08/15/20 07:30 <No data on this case meets the specified criteria> Hospital Course (1) Atrial fibrillation with RVR: Patient 52-year-old woman past with history of atrial fibrillation here for RVR and chest pain Atrial fibrillation with RVR and chest pain Patient tachycardic 140s given 2 doses of 5 mg Lopressor IV emergency department rates down to the 120s HR better today on diltiazem drip, 90-100 at rest, up to 130-140 when walking to the bathroom and washing up cardiology recommended cardioversion, was put on hold, then patient spontaneously converted in the morning observed on monitor until afternoon, remained in sinus rhythm so discharged to home continue Apixaban for full anticoagulation on Coreg, dose increased to 12.5mg BID for BP control Patient scored 2 on chads vascular, 2.2% annual stroke risk discussed risk benefits of anticoagulation patient started on apixaban at this time follow up with PCP and Dr. Lama Chest pain due to afib with RVR, no further symptoms troponin bumped to 0.68, represents demand ischemia, not a true NSTEMI Cardiac catheterization 2015 in [place], Overall is nonobstructive coronary disease. EF at that time was 60%. Circumflex was noted to have a 30% stenosis the rest were luminal irregularities DVT prophylaxis: apixaban Full code (2) Chest pain: no further episodes, it was due to afib with RVR (3) Encounter for smoking cessation counseling: Tobacco cessation counseling was offered (4) Hypertension: not adequately controlled on admission will increase Coreg to 12.5mg BID (this was changed from Bystolic) continue Valsartan 160mg daily continue Norvasc 10mg daily BP is better this morning, continue above regimen Total Time Total Time Spent Total Time Spent (In Minutes): 35 minutes Total Time Includes: Examination of the Patient, Discharge Planning, Medication Reconciliation and Communication With Other Providers (Dr. 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 Lama, ups driver - ELIQUIS: 5mg twice a day, this is for anticoagulation with atrial fibrillation, may not need to take this roasterman if you remain in normal sinus rhythm - ASPIRIN: reduce to 81mg daily Atrial fibrillation: converted to normal sinus rhythm with diltiazem drip will discharge home on carvedilol, Eliquis recommend follow up with Dr. Lama in 10-14 days with [facility] cardiology group Hypertension: blood pressure was uncontrolled on prior regimen Dr. Lama recommended changing Bystolic to Coreg 12.5mg twice a day added valsartan 160mg daily stop Hydrochlorothiazide follow up with PCP and Dr. Lama it is recommended that you get a referral from your PCP for sleep study as outpatient to look for undiagnosed sleep apnea as this can cause uncontrolled high blood pressure Pending Studies at Discharge: No Stand-Alone Forms: My [facility] [employer], Smoking Cessation Medications and DC Order Prescriptions: New Eliquis 5 mg Tablet 5 mg PO BID 30 Days Qty: 60 RF: 3 carvedilol 12.5 mg Tablet 12.5 mg PO BID 30 Days Qty: 60 RF: 3 valsartan 160 mg tablet 160 mg PO DAILY Qty: 30 RF: 3 aspirin 81 mg tablet,delayed release (DR/EC) 81 mg PO DAILY Qty: 30 RF: 0 Continued amlodipine 10 mg Tablet 10 mg PO DAILY RF: 0 Discontinued aspirin 325 mg Tablet 325 mg PO .TODAY RF: 0 hydrochlorothiazide 25 mg Tablet 25 mg PO QAM RF: 0 Bystolic 10 mg Tablet 10 mg PO QAM RF: 0 Discharge Orders: Discharge Order (Routine); Ordered 08/14/20 Ordered By: Maulik Méndez Admission Data Admit Date/Time: 08/13/20 00:31 Attending Provider: Maulik Méndez Admit Provider: Dilshad Lawson Primary Care Provider: Carlos Allen Other Providers: Kevin Silva ; Elio Lama Other Interventions: Discharge Summary Assessment (RN) Last Done: 08/14/20 16:04 Coding Level of Care Code D/C Day Management >30 mins Diagnoses Atrial fibrillation with RVR I48.91 Chest pain R07.9 Chest pain type: unspecified Encounter for smoking cessation counseling Z71.6 Hypertension I10
[2020-08-14] MEDS ORDERED: carvediloL 12.5 MG TAB PO SCH (21:00)
== END 2020-08-14 16:15 | disposition home or self-care (01) ==
LOC: ED 21:19 → INTOOBSV 08-13 00:31 → SUATTDRO 08-13 00:31 → 2N 08-13 00:31 → 2E 08-13 06:38 → SUATTDRO 08-13 15:43

== ENCOUNTER 2022-01-31 03:59 | Observation (INO) ==
[2022-01-31] MEDS ORDERED: SODIUM CHLORIDE 0.9% 500 ML IV STA (04:24)
--- NOTE | 2022-01-31 04:33 | Emergency Department Note ---
Impression & Plan Atrial fibrillation with rapid ventricular response, Left-sided chest pain Admit to the [facility] ED Provider Note NAME: KRAIG DUTTON AGE: 56 SEX: F ARRIVES VIA: Ambulance INFORMANT: Patient ED PROVIDER(S): Sunitha Romero DO CHIEF COMPLAINT: Chest pain and A. fib PLAN: Disposition: Admit to the Health System Condition: Guarded MEDICAL DECISION MAKING: This is a 56-year-old female patient who presents to the emergency department with sudden onset of A. fib and chest pain at 3 AM this morning. The patient has a history of A. fib and she presented in A. fib with rapid ventricular response for EMS. She was given 20 mg of IV Cardizem which controlled her rate but also dropped her blood pressure. Patient's chest pressure persisted. The patient was given IV diltiazem here in the emergency department along with IV Lopressor which only slightly controlled her rate. Her chest pressure was treated with IV fentanyl. Troponin was negative. There is no ischemic changes noted on the EKG. [facility] for further management. Triage Nursing notes reviewed and agree with them. Additional history obtained from who is at the bedside Prior medical records reviewed Vital Signs: reviewed and remarkable for tachycardia Differential diagnosis: Cardiac ischemia, STEMI, NSTEMI, A. fib with RVR ER treatment provided: IV Cardizem IV metoprolol IV fentanyl Diagnostics interpreted by me: ECG: Atrial fibrillation with RVR at a rate of 106. There is no ST segment elevation or signs of ischemia. Cardiac Monitoring: A. fib at a rate of 113 Repeat EKG as the patient was having chest pain: Atrial fibrillation with rapid ventricular response at a rate of [address] segment elevation or s igns of ischemia. Laboratory studies: See below Imaging studies: As per my interpretation Portable chest x-ray: No acute evidence of pulmonary edema or other pathology HPI: 56/F arrives for evaluation of chest pain. Go from sleep at 3 AM with substernal chest discomfort. She has a history of atrial fibrillation and could tell that she had an irregular heart rate. The patient has had no other preceding symptoms other than a urinary tract infection for which she recently completed antibiotics. At this time, the chest pain feels better. ROS: See above HPI for pertinent positives & negatives. A total of 10 systems reviewed and were otherwise negative. PAST MEDICAL HISTORY:A. fib; hypertension PAST SURGICAL HISTORY:See Below FAMILY HISTORY:See Below SOCIAL HISTORY:The patient lives with her . HOME MEDICATIONS:See Below ALLERGIES:See Below VITALS:See Below PHYSICAL EXAMINATION: HEENT: Head - normocephalic and atraumatic Pupils are equal, round, and reactive to light. Extraocular eye muscles are intact, and sclera are anicteric. Nose - moist nasal mucosa without discharge. Mouth - moist buccal mucosa. Oropharynx is nonerythematous and there is no tonsillar exudate or edema noted. Neck: Supple; no JVD, nuchal rigidity, cervical lymphadenopathy, or auscultated bruits. Heart: Tachycardic rate with an irregularly irregular rhythm there is a normal S1 and S2 with no murmurs, clicks, or gallops appreciated. Lungs: Clear to auscultation bilaterally with no wheezes, rales, or rhonchi. Abdomen: Soft, completely nontender, nondistended, with good bowel sounds. There are no palpable pulsatile masses or hepatosplenomegaly. There is no guarding, rigidity, or rebound noted. Extremities: No evidence of cyanosis, clubbing, or edema. There are easily palpable peripheral pulses. Skin: warm and dry with good turgor and no rashes. ED COURSE: Times/Reassessments: 0410: The patient was evaluated in room A11. A complete history and physical was performed. Laboratory studies were drawn as above. An order was placed for continuous cardiac monitoring. The patient was in atrial fibrillation with rapid ventricular response at a rate of 112. A twelve-lead EKG was obtained. Chest x-ray was performed. The patient was given 10 mg of IV Cardizem with only minimal control of her rate. I reviewed previous records where she had received IV Lopressor which gave her better control of the rate. At that point I ordered 5 mg of IV Lopressor but this did not control her rate this time at all. The patient began to complain of worsening chest discomfort and she was given 75 mcg of IV fentanyl which did give her some relief of the pain. I discussed the case with the [facility] hospitalist and they will evaluate for further management. Sunitha Romero, Past Med/Surg History Medical History Atrial fibrillation with RVR Chest pain Encounter for smoking cessation counseling Heart burn Hypertension Obesity Surgical History H/O laparoscopy X 2 History of appendectomy History of cardiac cath [facility] 2014 (NO STENTS) History of dilatation and curettage History of tooth extraction Hx of hysterectomy Family History Grandmother (Maternal) Family history of diabetes mellitus Social History Smoking Status: Current every day smoker Tobacco Type: E-cigarettes / Vaping Cigarettes Per Day: 27-37 mg of nicotene/day; Second Hand Exposure: Yes (MOTHER SMOKES); Tobacco Cessation Education Requested by Patient: No Hx Alcohol Use: Yes Alcohol type: hard liquor Hx Substance Use: No Preferred Language: Luxembourgish Communication Ability: Effective 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 Beliefs That Will Affect Care: None Current Living Situation: Spouse Current Living Situation Comment: lives with fiance Other Information That Helps Us Care for You: No Feels Safe at Home: Yes Safety Concerns: Feels Safe At This Time Assistive Devices: Glasses Allergies Allergies Allergy/AdvReac Type Severity Reaction Status Date / Time Penicillins Allergy Mild Rash Verified 01/31/22 07:24 Home Meds Home Medications Medication Instructions Recorded Confirmed carvedilol 12.5 mg tablet 18.75 mg PO BID 01/31/22 01/31/22 chlorthalidone 25 mg tablet 12.5 mg PO DAILY 01/31/22 01/31/22 nifedipine 90 mg tablet,extended 90 mg PO DAILY 01/31/22 01/31/22 release 24 hr valsartan 160 mg tablet 320 mg PO DAILY 01/31/22 01/31/22 Previous Rx's Medication Instructions Recorded apixaban 5 mg tablet (Eliquis) 5 mg PO BID 30 Days #60 tab 08/14/20 Results & Data (ED) Vital Signs Vital Signs - 24 hr 01/31/22 04:09 01/31/22 04:29 01/31/22 04:30 Temperature 36.5 C Temperature Source Oral Pulse Rate 109 H 109 H Pulse Rate [Finger] 109 H Pulse Rhythm [Finger] Respiratory Rate 18 18 Respiratory Effort / Characteristics Non-Labored Spontaneous Non-Labored Spontaneous Respiratory Depth Normal Normal Respiratory Pattern Blood Pressure 94/77 L Blood Pressure [Right Arm] 94/77 L Blood Pressure Mean 82 Blood Pressure Mean [Right Arm] 82 Blood Pressure Position Lying Blood Pressure Position [Right Arm] Lying Pulse Oximetry 95 95 95 Oxygen Delivery Method Room Air Room Air Room Air Sepsis Recent Fever Within 48 Hours No Sepsis New/Unexplained Change in Mental Status No Sepsis Action Taken by Nursing No Action Required 01/31/22 04:59 01/31/22 06:13 01/31/22 06:44 Temperature Temperature Source Pulse Rate 129 H Pulse Rate [Finger] 136 H 115 H 129 H Pulse Rhythm [Finger] Respiratory Rate 18 18 18 Respiratory Effort / Characteristics Non-Labored Spontaneous Non-Labored Spontaneous Non-Labored Spontaneous Respiratory Depth Normal Normal Normal Respiratory Pattern Blood Pressure 107/74 Blood Pressure [Right Arm] 128/105 H 139/86 120/85 Blood Pressure Mean Blood Pressure Mean [Right Arm] 112 103 96 Blood Pressure Position Blood Pressure Position [Right Arm] Lying Lying Lying Pulse Oximetry 95 92 93 Oxygen Delivery Method Room Air Room Air Room Air Sepsis Recent Fever Within 48 Hours Sepsis New/Unexplained Change in Mental Status Sepsis Action Taken by Nursing 01/31/22 07:20 Temperature Temperature Source Pulse Rate Pulse Rate [Finger] 110 H Pulse Rhythm [Finger] Irregular Respiratory Rate 20 Respiratory Effort / Characteristics Non-Labored Spontaneous Respiratory Depth Normal Respiratory Pattern Regular Blood Pressure Blood Pressure [Right Arm] 127/93 Blood Pressure Mean Blood Pressure Mean [Right Arm] 104 Blood Pressure Position Blood Pressure Position [Right Arm] Pulse Oximetry 96 Oxygen Delivery Method Room Air Sepsis Recent Fever Within 48 Hours Sepsis New/Unexplained Change in Mental Status Sepsis Action Taken by Nursing Laboratory Data Result diagrams: 01/31/22 04:07 01/31/22 04:07 Lab Results 01/31/22 01/31/22 01/31/22 Range/Units 04:07 04:07 04:07 WBC 8.79 (4.8-10.8) K/uL RBC 4.36 (4.2-5.4) M/uL Hgb 12.9 (12.0-16.0) g/dL Hct 38.9 (37-47) % MCV 89.2 (80-100) fL MCH 29.6 (25-34) pg MCHC 33.2 (32-36) g/dL RDW Std Deviation 45.6 (36.4-46.3) fL RDW Coeff of Lucia 13.9 (11.5-14.5) % Plt Count 181 (130-400) K/uL MPV 12.8 H (7.4-10.4) fL Immature Gran % (Auto) 0.1 % Neut % (Auto) 66.7 % Lymph % (Auto) 26.2 % [place] % (Auto) 5.0 % Eos % (Auto) 1.8 % Baso % (Auto) 0.2 % Neut # (Auto) 5.86 (1.4-6.5) K/uL Lymph # (Auto) 2.30 (1.2-3.4) K/uL [place] # (Auto) 0.44 (0.11-0.59) K/uL Eos # (Auto) 0.16 (0-0.5) K/uL Baso # (Auto) 0.02 (0-0.2) K/uL Immature Gran # (Auto) 0.01 (0.00-0.02) K/uL Sodium 138 (136-145) mmol/L Potassium 3.2 L (3.5-5.1) mmol/L Chloride 105 (98-107) mmol/L Carbon Dioxide 25 (21-32) mmol/L Anion Gap 8 (3-11) BUN 20 (6-23) mg/dl Creatinine 0.88 (0.6-1.2) mg/dl Est Cr Clr Drug Dosing 75.2 ml/min Est GFR ( Amer) 86.3 ml/min Est GFR (Non-Af Amer) 74.5 ml/min BUN/Creatinine Ratio 22.7 H (10-20) Glucose 128 H (70-99(Fasting)) mg/dl Calcium 8.0 L (8.5-10.1) mg/dl Magnesium 2.0 (1.7-2.4) mg/dl Total Bilirubin 0.4 (0.2-1.0) mg/dl AST 12 L (13-39) U/L ALT 10 (7-52) U/L Alkaline Phosphatase 93 (34-104) U/L Troponin I 0.03 (0-0.04) ng/ml Total Protein 6.2 (6.0-8.3) gm/dl Albumin 3.8 (3.4-5.0) gm/dl Globulin 2.4 L (2.5-4.0) gm/dl Albumin/Globulin Ratio 1.6 (0.9-2) Lipase 23 (11-82) U/L TSH (0.300-4.500) uIu/ml SARS-CoV-2, RNA, NAAT (NEGATIVE) 01/31/22 01/31/22 Range/Units 04:07 06:12 WBC (4.8-10.8) K/uL RBC (4.2-5.4) M/uL Hgb (12.0-16.0) g/dL Hct (37-47) % MCV (80-100) fL MCH (25-34) pg MCHC (32-36) g/dL RDW Std Deviation (36.4-46.3) fL RDW Coeff of Lucia (11.5-14.5) % Plt Count (130-400) K/uL MPV (7.4-10.4) fL Immature Gran % (Auto) % Neut % (Auto) % Lymph % (Auto) % [place] % (Auto) % Eos % (Auto) % Baso % (Auto) % Neut # (Auto) (1.4-6.5) K/uL Lymph # (Auto) (1.2-3.4) K/uL [place] # (Auto) (0.11-0.59) K/uL Eos # (Auto) (0-0.5) K/uL Baso # (Auto) (0-0.2) K/uL Immature Gran # (Auto) (0.00-0.02) K/uL Sodium (136-145) mmol/L Potassium (3.5-5.1) mmol/L Chloride (98-107) mmol/L Carbon Dioxide (21-32) mmol/L Anion Gap (3-11) BUN (6-23) mg/dl Creatinine (0.6-1.2) mg/dl Est Cr Clr Drug Dosing ml/min Est GFR ( Amer) ml/min Est GFR (Non-Af Amer) ml/min BUN/Creatinine Ratio (10-20) Glucose (70-99(Fasting)) mg/dl Calcium (8.5-10.1) mg/dl Magnesium (1.7-2.4) mg/dl Total Bilirubin (0.2-1.0) mg/dl AST (13-39) U/L ALT (7-52) U/L Alkaline Phosphatase (34-104) U/L Troponin I (0-0.04) ng/ml Total Protein (6.0-8.3) gm/dl Albumin (3.4-5.0) gm/dl Globulin (2.5-4.0) gm/dl Albumin/Globulin Ratio (0.9-2) Lipase (11-82) U/L TSH 2.798 (0.300-4.500) uIu/ml SARS-CoV-2, RNA, NAAT NEGATIVE (NEGATIVE) Administered Medications Apixaban (Apixaban 5 Mg Tablet) 5 mg PO BID [facility] Stop: 03/02/22 08:59 Last Admin: 01/31/22 09:59 Dose: 5 mg Documented by: [id number] Metoprolol Tartrate (Metoprolol Tartrate 1 Mg/Ml Vial) 5 mg IV Q4 PRN; Protocol PRN Reason: sustained hr>/=120 Stop: 03/02/22 08:04 Last Admin: 01/31/22 11:55 Dose: 5 mg Documented by: [id number] Miscellaneous (Remove Nicoderm Patch) 1 ea N/A DAILY@[id number] [facility] Stop: 03/02/22 08:58 Last Admin: 01/31/22 11:02 Dose: Not Given Documented by: [id number] Discontinued Medications Carvedilol (Carvedilol 25 Mg Tab) 25 mg PO NOW ONE Stop: 01/31/22 08:06 Last Admin: 01/31/22 10:00 Dose: 25 mg Documented by: [id number] Diltiazem HCl (Diltiazem Hcl 5 Mg/Ml 5 Ml Vial) 10 mg IV NOW STA Stop: 01/31/22 05:58 Last Admin: 01/31/22 06:02 Dose: 10 mg Documented by: [id number] Cosigned by: [id number] Fentanyl Citrate (Fentanyl Citrate 100 Mcg/2 Ml Vial) 75 mcg IV NOW ONE Stop: 01/31/22 05:58 Last Admin: 01/31/22 07:19 Dose: 75 mcg Documented by: [id number] Flecainide Acetate (Flecainide Acetate 100 Mg Tablet) 50 mg PO Q12 ELISHA Stop: 03/02/22 11:19 Last Admin: 01/31/22 12:06 Dose: 50 mg Documented by: [id number] Sodium Chloride (Nss) 500 mls @ 999 mls/hr IV .Q31M STA Stop: 01/31/22 04:54 Last Infusion: 01/31/22 05:19 Dose: 0 mls/hr Documented by: [id number] Admin: 01/31/22 04:33 Dose: 999 mls/hr Documented by: [id number] Metoprolol Tartrate (Metoprolol Tartrate 1 Mg/Ml Vial) 5 mg IV NOW STA; Protocol Stop: 01/31/22 04:54 Last Admin: 01/31/22 04:59 Dose: 5 mg Documented by: [id number] Potassium Chloride (Potassium Chloride Crtab 20 Meq Tabcr) 40 meq PO Q6H ELISHA Stop: 01/31/22 14:01 Last Admin: 01/31/22 14:28 Dose: 40 meq Documented by: [id number] Admin: 01/31/22 10:00 Dose: 40 meq Documented by: [id number] Imaging Data Radiologist's Impression: Chest X-Ray 01/31/22 04:25 XR chest 1V portable CLINICAL HISTORY: Atypical chest pain. COMPARISON STUDY: Chest radiograph August 12, 2020. FINDINGS: Lung volumes are normal. Lungs are clear. There is no pneumothorax or pleural effusion. Mild cardiomegaly is noted. Subtle interstitial thickening is unchanged. Mediastinal contours are normal. There is no evidence for pulmonary edema. IMPRESSION: No acute cardiopulmonary findings. No significant change in appearance of the chest. Stable mild interstitial thickening, likely chronic. ACT 112: Negative or not required by law. Electronically signed by: Damian Coffey M.D. 01/31/2022 6:16 AM Discharge Plan Visit Data Chief Complaint: Cardiac Assessment Stated Complaint: CHEST PAIN / AFIB ED Provider: Sunitha Romero Discharge Problem: Atrial fibrillation with rapid ventricular response, Left-sided chest pain Patient Disposition: Admitted As Inpatient Discharge Instructions Interventions: ED Discharge Assessment Last Done: 01/31/22 10:15
[2022-01-31 04:38] LABS: Basophils # (auto) 0.02 K/uL (0-0.2); Basophils % (auto) 0.2 %; Eosinophils # (auto) 0.16 K/uL (0-0.5); Eosinophils % (auto) 1.8 %; Hematocrit (blood only) 38.9 % (37-47); Hemoglobin 12.9 g/dL (12.0-16.0); Immature Granulocytes # (auto) 0.01 K/uL (0.00-0.02); Immature Granulocytes % (auto) 0.1 %; Lymphocytes % (auto) 26.2 %; Mean Corpuscular Hemoglobin 29.6 pg (25-34); Mean Corpuscular Hgb Conc 33.2 g/dL (32-36); Mean Corpuscular Volume 89.2 fL (80-100); Mean Platelet Volume 12.8 fL (7.4-10.4); Monocytes # (auto) 0.44 K/uL (0.11-0.59); Neutrophils # (auto) 5.86 K/uL (1.4-6.5); Neutrophils % (auto) 66.7 %; Platelet Count 181 K/uL (130-400); RDW Coefficient of Variation 13.9 % (11.5-14.5); RDW Standard Deviation 45.6 fL (36.4-46.3); Red Blood Count 4.36 M/uL (4.2-5.4); White Blood Count 8.79 K/uL (4.8-10.8)
[2022-01-31 04:50] LABS: Troponin I 0.03 ng/ml (0-0.04)
[2022-01-31] MEDS ORDERED: METOPROLOL TARTRATE 1 MG/ML VIAL IV STA (04:53)
[2022-01-31 04:56] LABS: Albumin Globulin Ratio 1.6 (0.9-2); Albumin Level 3.8 gm/dl (3.4-5.0); BUN Creatinine Ratio 22.7 (10-20); Bilirubin,Total 0.4 mg/dl (0.2-1.0); Creatinine Clr Calc Pharmacy 75.2 ml/min; Est GFR (African American) 86.3 ml/min; Est GFR (Non-African American) 74.5 ml/min; Globulin 2.4 gm/dl (2.5-4.0); Potassium 3.2 mmol/L (3.5-5.1); Total Protein 6.2 gm/dl (6.0-8.3)
[2022-01-31] MEDS ORDERED: dilTIAZem HCl 5 MG/ML 5 ML VIAL IV STA ×2 (05:57→17:32)
--- NOTE | 2022-01-31 06:17 | XRay Report ---
XR chest 1V portable CLINICAL HISTORY: Atypical chest pain. COMPARISON STUDY: Chest radiograph August 12, 2020. FINDINGS: Lung volumes are normal. Lungs are clear. There is no pneumothorax or pleural effusion. Mil d cardiomegaly is noted. Subtle interstitial thickening is unchanged. Mediastinal contours are normal . There is no evidence for pulmonary edema. IMPRESSION: No acute cardiopulmonary findings. No significant change in appearance of the chest. Sta ble mild interstitial thickening, likely chronic. ACT 112: Negative or not required by law. Electronically signed by: Damian Coffey M.D. 01/31/2022 6:16 AM
[2022-01-31] MEDS: fentaNYL citrate 100 MCG/2 ML VIAL IV ONE ×2 (06:56→07:19)
[2022-01-31] MEDS ORDERED: carvediloL 25 MG TAB PO ONE (08:05)
--- NOTE | 2022-01-31 08:28 | History & Physical Report ---
Date of Service January 31, 2022 Assessment & Plan (1) Atrial fibrillation with rapid ventricular response: Plan: 56-year-old white female with an underlying past medical history of paroxysmal atrial fibrillation and hypertension presented in atrial fibrillation with RVR. * Increase coreg to 25mg BID * IV Lopressor prn * if continued RVR despite max coreg, would be inclined to add Cardizem or Antiarrhythmic medications. * Patient follows with Dr. Lama. I was able to discuss this case with Taylor PARRISH with cardiology to discuss preference. She recommends Flecainide * Continue Eliquis * Update echocardiogram * Cycle out troponin * EKG if conversion to normal sinus rhythm * supplement Potassium * check mag level and TSH (2) Hypokalemia: Plan: * supplement (3) Chest pain: Plan: * Suspect secondary to #1 as resolved with improved rate control * Initial troponin negative and EKG showing atrial fibrillation with variable re sponse but no acute ST/T wave changes * Cycle troponin * Trend EKG * Continue to follow (4) Hypertension: Plan: * Hold antihypertensive medications for now including nifedipine, valsartan, and chlorthalidone as current BP 105/70 * Uptitrating Coreg * Will monitor closely (5) Morbid obesity with BMI of 40.0-44.9, adult: (6) Elevated troponin: Plan: Full code Continue routine Eliquis which will provide adequate DVT prophylaxis Plan of care to be discussed with Dr. Bansal. Further orders as warranted. History of Present Illness Chief Complaint: CP X 30 minutes Primary Care Provider: Carlos Allen Mrs. Lake is a 56-year-old white female with an underlying past medical history of atrial fibrillation and hypertension. She presented to the emergency department complaining of chest pain X 30 minutes. Was awoken from a sleep complaining of substernal chest pain that was described as sharp. Radiated into the back. Rated as a 10/10. Denied cardiac awareness or palpitations but does have a history of underlying atrial fibrillation which prompted her to check her pulse. Could tell she was irregular and tachycardic prompting her to call EMS services. When he met a ride, heart rate was 150s to 170s. Was given Cardizem 10 mg IV in route and upon presentation to the ED, heart rate improved to 115. Was subsequently given Lopressor 5 mg IV and current heart rate is 105-118. Blood pressure stable at 127/93. She denies any further complaints of chest discomfort. Denies SOB, diaphoresis, N/V. Work-up otherwise unremarkable. CBC within normal limits. Metabolic panel shows mild hypokalemia of 3.2. Troponin is negative at 0.03. Covid test is negative. Pt follows with Dr. Lama. Takes Cored 18.75mg BID (did take her dose lastnight as prescribed and is compliant). No excessive caffeine. No ETOH use. No current illness. Patient will be hospitalized for further evaluation and care. Allergies Allergy/AdvReac Type Severity Reaction Status Date / Time Penicillins Allergy Mild Rash Verified 01/31/22 07:24 Home Medications Medication Instructions Recorded Confirmed Type apixaban 5 mg tablet (Eliquis) 5 mg PO BID 30 Days #60 tab 08/14/20 01/31/22 Rx carvedilol 12.5 mg tablet 18.75 mg PO BID 01/31/22 01/31/22 History chlorthalidone 25 mg tablet 12.5 mg PO DAILY 01/31/22 01/31/22 History nifedipine 90 mg tablet,extended 90 mg PO DAILY 01/31/22 01/31/22 History release 24 hr valsartan 160 mg tablet 320 mg PO DAILY 01/31/22 01/31/22 History amiodarone 200 mg tablet 200 mg PO BIDM #60 tab 02/01/22 Rx Past Med/Surg History Medical History Atrial fibrillation with RVR Chest pain Encounter for smoking cessation counseling Heart burn Hypertension Obesity Surgical History H/O laparoscopy X 2 History of appendectomy History of cardiac cath [facility] (NO STENTS) History of dilatation and curettage History of tooth extraction Hx of hysterectomy Family History Grandmother (Maternal) Family history of diabetes mellitus Social History Smoking Status: Current every day smoker Tobacco Type: E-cigarettes / Vaping Cigarettes Per Day: 27-37 mg of nicotene/day; Second Hand Exposure: Yes (MOTHER SMOKES); Tobacco Cessation Education Requested by Patient: No Hx Alcohol Use: Yes Alcohol type: hard liquor Hx Substance Use: No Preferred Language: Hungarian Communication Ability: Effective 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 Beliefs That Will Affect Care: None Current Living Situation: Spouse Current Living Situation Comment: lives with liliane Other Information That Helps Us Care for You: No Feels Safe at Home: Yes Safety Concerns: Feels Safe At This Time Assistive Devices: None Review of Systems Review of Systems: All systems reviewed and are unremarkable except as noted in HPI and below Denies fevers, chills, headache, nasal congestion, sore throat, cough, shortness of breath, palpitations, orthopnea, PND, abdominal pain, nausea, vomiting, diarrhea, constipation, dysuria, hematuria, frequency, back pain, joint pain or swelling, easy bruising or bleeding, skin lesions or rashes. Physical Exam Physical Exam: General: Resting comfortably in her hospital bed. She does not appear ill or toxic. NAD. HEENT: Head is AT/NC. Buccal mucosa is moist and pink Neck: No JVD. Negative hepatojugular reflex Cardiac: Irregularly irregular currently at 110 bpm without M/G/R Lungs: CTA without W/R/R Abdomen: Normoactive X4. Soft and nontender in all quadrants. Extremities: No peripheral clubbing cyanosis or edema Neuro: A&O X4. Cranial nerves II through XII are grossly intact. No focal neuro deficits Skin: No obvious skin lesions or rashes Psych: Appropriate affect. Pleasant and cooperative Results & Data Results & Data ([facility]) Vital Signs (Past 12 Hours) Vital Signs Temp Pulse Pulse Resp BP BP Pulse Ox 01/31/22 07:20 110 H 20 127/93 96 01/31/22 06:44 129 H 18 120/85 93 01/31/22 06:13 115 H 18 139/86 92 01/31/22 04:59 129 H 136 H 18 107/74 128/105 H 95 01/31/22 04:30 95 01/31/22 04:29 109 H 109 H 18 94/77 L 95 01/31/22 04:09 36.5 C 109 H 18 94/77 L 95 Laboratory Results 01/31/22 04:07 01/31/22 04:07 Troponin: 0.03 Diagnostic Findings CXR: No acute cardiopulmonary process. No significant change from prior. Chronic interstitial thickening noted ECG Additional Comments: EKG: Atrial fibrillation with a rate of 115 bpm Supervising Physician Co-Signing Physician Notes Attending Attestation & Admit Note: Pt seen/examined, chart reviewed, care plan d/w PA Marta Chitra. I agree with the miller components of her documentation. 56yo female with history of PAF on beta lester therapy & chronic AC with Eliquis presents with sudden onset chest pain/palpitations/recurrent rapid a.fib. Upon ER presentation had significant rapid a.fib. Initial troponin negative, with 2nd troponin modestly elevated. Following admission, despite her normal BB, her rates remained >100 and cardizem infusion was instituted by Ms Buenrostro. During my assessment rates were finally <100 and her chest pain had resolved. PMH/PSH/allergies/meds/sochx/famhx - reviewed Heart cath - [facility] 01/2015 - L Cx 30%; L main, LAD, RCA - minimal luminal irregularities VSS, no fever gen - obese, NAD neck - no JVD heart - irregular, s1 s2, rate <100; no murmur lungs - CTA b/l abd - soft NT ND BS+ ext - no edema labs reviewed EKG reviewed A/P: Known h/o a.fib. Now with rapid, paroxysmal a.fib. Cont BB; continue cardizem infusion; cont Eliquis. Ms Buenrostro spoke with Dr Lama her primary side hemmer. If patient does not spontaneously cardiovert by the am -- electrical cardioversion is planned at that time. Elevated troponin - 2nd to myocardial demand ischemia in the setting of rapid a.fib. See cath report findings above. Unlikely to have obstructive CAD by this point in time but low threshold to perform additional ischemic w/u as needed. Vikram Bansal MD PG Care Time/CCT Total # of Minutes Spent Total Time Spent with Patient: Total time spent is greater than 50% in coordination of care (as documented) at patient's floor/unit and/or counseling patient: Coding Level of Care Code INT OBSERVATION CARE 70M LVL 3 Diagnoses Atrial fibrillation with rapid ventricular response I48.91 Hypokalemia E87.6 Chest pain R07.9 Hypertension I10 Morbid obesity with BMI of 40.0-44.9, adult E66.01; Z68.41 Elevated troponin R77.8
[2022-01-31] MEDS: APIXABAN 5 MG TABLET PO SCH ×2 (09:59→20:38)
[2022-01-31] MEDS: POTASSIUM CHLORIDE CRTAB 20 MEQ TABCR PO SCH ×2 (10:00→14:28)
[2022-01-31] MEDS ORDERED: ACETAMINOPHEN 325 MG TAB PO PRN (10:47)
[2022-01-31] MEDS ORDERED: POLYETHYLENE (MIRALAX) 17 GM PACK PO PRN (10:47)
[2022-01-31] MEDS ORDERED: MAGNESIUM HYDROXIDE SUSP 30 ML UDC PO PRN (10:47)
[2022-01-31] MEDS ORDERED: ALUMINUM/MAGNESIUM SUSP 30 ML UDC PO PRN (10:47)
[2022-01-31] MEDS ORDERED: MoRPHine SULFATE 2 MG/ML CARP IV PRN (10:47)
[2022-01-31] MEDS ORDERED: NICOTINE 21 MG/24 HR TDSY TD PRN (10:47)
[2022-01-31] MEDS ORDERED: NITROGLYCERIN SL 0.4 MG/TAB TAB SL PRN (10:47)
[2022-01-31] MEDS ORDERED: ONDANSETRON INJ 2 MG/ML 2 ML VIAL IV PRN (10:47)
[2022-01-31] MEDS ORDERED: FLECAINIDE ACETATE 100 MG TABLET PO SCH (11:20)
[2022-01-31] MEDS: METOPROLOL TARTRATE 1 MG/ML VIAL IV PRN ×2 (11:55→17:14)
--- NOTE | 2022-01-31 15:45 | Anesthesiology Consultation ---
Date of Service January 31, 2022 Assessment & Plan Chart Review Chart Review: Acceptable Risk for Surgery and Patient NOT seen in Pre Admission Testing Consults Requested none ASA ASA4 Proposed Anesthesia Anesthesia Type: General History Surgery Operation Date: 02/01/22 07:15 Proposed Procedures p Cardioversion Head Neck Surgeon w/Anesthesia - Elio Lama DO Height/Weight Height: 5 ft Weight: 93.979 kg Allergies Allergy/AdvReac Type Severity Reaction Status Date / Time Penicillins Allergy Mild Rash Verified 01/31/22 07:24 Medications Home Medications Medication Instructions Recorded Confirmed Last Taken apixaban 5 mg tablet (Eliquis) 5 mg PO BID 30 Days #60 tab 08/14/20 01/31/22 01/30/22 carvedilol 12.5 mg tablet 18.75 mg PO BID 01/31/22 01/31/22 01/30/22 chlorthalidone 25 mg tablet 12.5 mg PO DAILY 01/31/22 01/31/22 01/30/22 nifedipine 90 mg tablet,extended 90 mg PO DAILY 01/31/22 01/31/22 01/30/22 release 24 hr valsartan 160 mg tablet 320 mg PO DAILY 01/31/22 01/31/22 01/30/22 Active Medications Generic Name Dose Route Start Last Admin Trade Name Freq PRN Reason Stop Dose Admin Apixaban 5 mg 01/31/22 09:00 01/31/22 09:59 Apixaban 5 Mg Tablet PO 03/02/22 08:59 5 mg BID ELISHA Administration Metoprolol Tartrate 5 mg 01/31/22 08:05 01/31/22 11:55 Metoprolol Tartrate 1 Mg/Ml Vial IV 03/02/22 08:04 5 mg Q4 PRN Administration sustained hr>/=120 Protocol Miscellaneous 1 ea 01/31/22 08:59 01/31/22 11:02 Remove Nicoderm Patch N/A 03/02/22 08:58 Not Given DAILY@0859 [facility], [facility] Past Medical History Medical History Atrial fibrillation with RVR Chest pain Encounter for smoking cessation counseling Heart burn Hypertension Obesity Exercise / Class Metabolic Activity II 4-5 Yardwork/Stairs/Walk up hill Past Family History Family History Grandmother (Maternal) Family history of diabetes mellitus Past Surgical History Surgical History H/O laparoscopy X 2 History of appendectomy History of cardiac cath [facility] 2014 (NO STENTS) History of dilatation and curettage History of tooth extraction Hx of hysterectomy Past Anesthesia History No Hx of Anesthesia Complications and No Family Hx of Anesthesia Complications History of PONV No Hx of PONV and No Hx of Motion Sickness Social History Smoking Status: Current every day smoker tobacco type: e-cigarettes Smoking cigarettes per day: 27-37 mg of nicotene/day Hx Alcohol Use: Yes Alcohol type: hard liquor alcohol intake frequency: holidays/special occasions only Hx Substance Use: No Physical Exam Vital Signs Last Vital Signs Temp 36.8 C 01/31/22 15:11 Pulse 102 H 01/31/22 15:11 Resp 20 01/31/22 15:11 BP 106/70 01/31/22 15:11 Pulse Ox 94 01/31/22 15:11 Testing Laboratory Results 01/31/22 04:07 01/31/22 04:07 Electrocardiogram Date: 01/31/22 Findings: + NSST changes and + AFIB @ (at 115 w/RVR) Chest X-Ray Date: 01/31/22 Findings: + NAD Echocardiogram Date: 08/13/20 EF: 60% LV Function: normal RWMA: + none Other Findings: + atrial enlargement (LA mod.dilated), + LVH (severe) and + diastolic dysfunction (grade 2) Valvular Disease: + no significant valvular disease Cardiac Catheterization Date: 01/20/15 Findings: + RCA (Minimal LI's), + LMA (normal), + LCX (mid 30%) and + pertinent finding (LAD-minimal LI's;LVEDP-26 torr)
[2022-01-31] MEDS ORDERED: STAT IV Infusion **Titration per Protocol STA (17:32)
[2022-01-31] MEDS ORDERED: dilTIAZem HCL 125 MG in DEXTROSE 5% 100 ML IV SCH (17:45)
--- NOTE | 2022-01-31 19:50 | XCELERA ---
[id number]
[2022-01-31] MEDS ORDERED: carvediloL 25 MG TAB PO SCH (21:00)
[2022-02-01] MEDS: APIXABAN 5 MG TABLET PO SCH (04:52)
[2022-02-01] MEDS ORDERED: [UNRECOGNIZED DRUG - REMARK] ONE (05:00)
--- NOTE | 2022-02-01 05:53 | Electrocardiogram Report ---
Test Reason : Blood Pressure : / mmHG Vent. Rate : 106 BPM Atrial Rate : 267 BPM P-R Int : 000 ms QRS Dur : 084 ms QT Int : 378 ms P-R-T Axes : 000 018 028 degrees QTc Int : 502 ms Atrial fibrillation with rapid ventricular response Nonspecific ST abnormality Prolonged QT Abnormal ECG When compared with ECG of 14-AUG-2020 11:42, Atrial fibrillation has replaced Sinus rhythm Vent. rate has increased BY 40 BPM Criteria for Anterior infarct are no longer Present Nonspecific T wave abnormality no longer evident in Anterolateral leads Confirmed by Alexx Bal ([id number]) on 02/01/2022 5:53:05 AM Referred By: REFERRED SELF Confirmed By:Alexx Bal
--- NOTE | 2022-02-01 05:56 | Electrocardiogram Report ---
Test Reason : Blood Pressure : / mmHG Vent. Rate : 115 BPM Atrial Rate : 129 BPM P-R Int : 000 ms QRS Dur : 084 ms QT Int : 360 ms P-R-T Axes : 000 011 021 degrees QTc Int : 498 ms Atrial fibrillation with rapid ventricular response Nonspecific ST and T wave abnormality Prolonged QT Abnormal ECG When compared with ECG of 31-JAN-2022 04:06, No significant change Confirmed by Alexx Bal ([id number]) on 02/01/2022 5:55:59 AM Referred By: REFERRED SELF Confirmed By:Alexx Bal
[2022-02-01] MEDS ORDERED: LIDOCAINE 2% MPF LOCAL 5 ML VIAL INFIL ONE (07:03)
[2022-02-01] MEDS ORDERED: PROPOFOL IV EMULSION 10 MG/ML 20 ML VIAL IV ONE (07:03)
[2022-02-01 07:12] LABS: Hematocrit (blood only) 35.8 % (37-47); Hemoglobin 11.9 g/dL (12.0-16.0); Mean Corpuscular Hgb Conc 33.2 g/dL (32-36); Mean Corpuscular Volume 90.2 fL (80-100); Platelet Count 159 K/uL (130-400); RDW Coefficient of Variation 14.5 % (11.5-14.5); RDW Standard Deviation 47.8 fL (36.4-46.3); Red Blood Count 3.97 M/uL (4.2-5.4)
--- NOTE | 2022-02-01 07:18 | Anesthesiology Consultation ---
Date of Service February 01, 2022 Assessment & Plan (1) Encounter for pre-operative examination: Chart Review Chart Review: Acceptable Risk for Surgery History Surgery Operation Date: 02/01/22 07:15 Proposed Procedures p Cardioversion Railway Yard Assistant w/Anesthesia - Elio Lama DO Height/Weight Height: 5 ft Weight: 94 kg Allergies Allergy/AdvReac Type Severity Reaction Status Date / Time Penicillins Allergy Mild Rash Verified 01/31/22 07:24 Medications Home Medications Medication Instructions Recorded Confirmed Last Taken apixaban 5 mg tablet (Eliquis) 5 mg PO BID 30 Days #60 tab 08/14/20 01/31/22 01/30/22 carvedilol 12.5 mg tablet 18.75 mg PO BID 01/31/22 01/31/22 01/30/22 chlorthalidone 25 mg tablet 12.5 mg PO DAILY 01/31/22 01/31/22 01/30/22 nifedipine 90 mg tablet,extended 90 mg PO DAILY 01/31/22 01/31/22 01/30/22 release 24 hr valsartan 160 mg tablet 320 mg PO DAILY 01/31/22 01/31/22 01/30/22 Active Medications Generic Name Dose Route Start Last Admin Trade Name Freq PRN Reason Stop Dose Admin Apixaban 5 mg 01/31/22 09:00 02/01/22 04:52 Apixaban 5 Mg Tablet PO 03/02/22 08:59 5 mg BID ELISHA Administration Carvedilol 25 mg 01/31/22 21:00 01/31/22 20:38 Carvedilol 25 Mg Tab PO 03/02/22 20:59 25 mg BID ELISHA Administration Metoprolol Tartrate 5 mg 01/31/22 08:05 01/31/22 17:14 Metoprolol Tartrate 1 Mg/Ml Vial IV 03/02/22 08:04 5 mg Q4 PRN Administration sustained hr>/=120 Protocol Miscellaneous 1 ea 01/31/22 08:59 01/31/22 11:02 Remove Nicoderm Patch N/A 03/02/22 08:58 Not Given DAILY@0859 ELISHA Past Medical History Medical History Atrial fibrillation with RVR Chest pain Encounter for smoking cessation counseling Heart burn Hypertension Obesity Past Family History Family History Grandmother (Maternal) Family history of diabetes mellitus Past Surgical History Surgical History H/O laparoscopy X 2 History of appendectomy History of cardiac cath [facility] [place] 2014 (NO STENTS) History of dilatation and curettage History of tooth extraction Hx of hysterectomy Social History Smoking Status: Current every day smoker tobacco type: e-cigarettes Smoking cigarettes per day: 27-37 mg of nicotene/day Hx Alcohol Use: Yes Alcohol type: hard liquor alcohol intake frequency: holidays/special occasions only Hx Substance Use: No Physical Exam Vital Signs Last Vital Signs Temp 36.8 C 02/01/22 04:55 Pulse 103 H 02/01/22 04:55 Resp 16 02/01/22 04:55 BP 134/91 02/01/22 04:55 Pulse Ox 96 02/01/22 04:55 Testing Laboratory Results 02/01/22 07:02 Electrocardiogram Date: 02/01/22 Findings: + AFIB @ (87) Echocardiogram Date: 01/31/22 EF: 60% Other Findings: + LVH (Severe) and + diastolic dysfunction Valvular Disease: + no significant valvular disease
--- NOTE | 2022-02-01 07:37 | Cardioversion ---
Date of Service February 01, 2022 Electrical Cardioversion Rpt Electrical Cardioversion Report Patient was brought to the cardiac catheterization laboratory. She was sedated by the anesthesia department with propofol. Once she was adequately sedated. She was cardioverted with 200 J in a biphasic sync mode x1 with confucianist of normal sinus rhythm. She tolerated the procedure well. At the end of the procedure she was answering questions appropriately and moving all extremities.
[2022-02-01 07:38] LABS: BUN Creatinine Ratio 22.8 (10-20); Calcium 7.9 mg/dl (8.5-10.1); Creatinine Clr Calc Pharmacy 83.4 ml/min; Est GFR (African American) 98.4 ml/min; Est GFR (Non-African American) 84.9 ml/min; Magnesium 2.1 mg/dl (1.7-2.4)
--- NOTE | 2022-02-01 07:45 | Cardiology Consultation ---
Date of Consultation February 01, 2022 History of Present Illness Reason for Consultation: Atrial fibrillation with a rapid ventricular response Attending Physician: Vikram Bansal History of Present Illness Patient awoke from sleep with chest discomfort and knew she was in atrial fibrillation. When heart rates are really fast she just aware of an uneasy feeling but does not actually feel palpitations. In the hospital she was rate controlled. She has been on anticoagulation indefinitely and has not missed any doses. She did not convert with a combination of diltiazem and increasing doses of carvedilol. Cardioversion was planned for this morning. In the Fluid [employer] holding area she is unaware of any palpitations even with a heart rate of about 110 bpm she denies being short of breath. She was laying in bed. She denies any lightheadedness or dizziness. She has no had no further chest pain. She has no lower extremity edema. Unfortunately she has never had a sleep study which she definitely needs and she also vapes on a regular basis. She has any bleeding bruising dark stools or black stools on anticoagulation. Her appetite and weight have been stable. The rest of a complete her systems otherwise negative Allergies Allergy/AdvReac Type Severity Reaction Status Date / Time Penicillins Allergy Mild Rash Verified 01/31/22 07:24 Home Medications Medication Instructions Recorded Confirmed Type apixaban 5 mg tablet (Eliquis) 5 mg PO BID 30 Days #60 tab 08/14/20 01/31/22 Rx carvedilol 12.5 mg tablet 18.75 mg PO BID 01/31/22 01/31/22 History chlorthalidone 25 mg tablet 12.5 mg PO DAILY 01/31/22 01/31/22 History nifedipine 90 mg tablet,extended 90 mg PO DAILY 01/31/22 01/31/22 History release 24 hr valsartan 160 mg tablet 320 mg PO DAILY 01/31/22 01/31/22 History Patient History Medical History Atrial fibrillation with RVR Chest pain Encounter for smoking cessation counseling Heart burn Hypertension Obesity Surgical History H/O laparoscopy X 2 History of appendectomy History of cardiac cath [facility] 2014 (NO STENTS) History of dilatation and curettage History of tooth extraction Hx of hysterectomy Family History Grandmother (Maternal) Family history of diabetes mellitus Social History Smoking Status: Current every day smoker Tobacco Type: E-cigarettes / Vaping Cigarettes Per Day: 27-37 mg of nicotene/day; Second Hand Exposure: Yes (MOTHER SMOKES); Tobacco Cessation Education Requested by Patient: No Hx Alcohol Use: Yes Alcohol type: hard liquor Hx Substance Use: No Preferred Language: Vietnamese Communication Ability: Effective Director Operating Room Required: No Beliefs That Will Affect Care: None Current Living Situation: Spouse Current Living Situation Comment: lives with fiance Other Information That Helps Us Care for You: No Feels Safe at Home: Yes Safety Concerns: Feels Safe At This Time Assistive Devices: None Results & Data ([facility]) Vital Signs (Past 12 Hours) Vital Signs Temp Pulse Pulse Resp BP Pulse Ox 02/01/22 07:38 60 16 104/73 98 02/01/22 07:30 60 16 104/73 98 02/01/22 04:55 36.8 C 103 H 16 134/91 96 01/31/22 23:21 36.9 C 89 18 110/75 95 01/31/22 23:16 90 HEENT: 2+ carotid upstrokes, no evidence of carotid bruits, jugular venous pressure was normal. Sclera was anicteric. Hearing was normal .Lungs: Clear to auscultation bilaterally no rales rhonchi wheezing Heart: irregular rate and rhythm no appreciable murmurs rubs or gallops Abdomen: soft nontender nondistended positive bowel sounds Extremities: no clubbing cyanosis or edema Psychiatric: She has normal affect Neurologic: She is awake alert and oriented x3 and answers questions appropriately and moves all extremities Her EKG and echocardiogram and laboratory studies were review Impressions: 1. Atrial fibrillation with a rapid ventricular response with a chads 2 Vasc Score of 2 2. Preserved left ventricular systolic function with moderate concentric left ventricular hypertrophy With more prominent thickening of the basal septum 3. Longstanding hypertension 4. Possible Obstructive sleep apnea 5. Negative genetic testing for hypertrophic cardiomyopathy 6. Tobacco abuse using vaping products She was successfully cardioverted this morning back to sinus rhythm. I would place her back on 18.75 mg twice daily of her carvedilol. She will remain on her anticoagulation long-term We will start amiodarone 200 mg twice daily. She cannot get flecainide due to her degree of left ventricular hypertrophy. The use of sotalol and Tikosyn carries a higher risk in women compared to men with regards to QTc prolongation. Therefore I would try to avoid these medications. We will use amiodarone as a bridge in order to consider an A. fib ablation. As an outpatient she will need a sleep study which we will arrange for. In addition she will need a cardiac MRI to look at the basal septum. If she were to have delayed enhancement and scarring of her left ventricular cavity with significant thickening of the septum compared to the other hensley it will be important to rule out hypertrophic cardiomyopathy even though her genetic testing was negative. She ultimately may have HCM like physiology secondary to longstanding hypertension. She also needs to stop vaping. We discussed vaping and sleep apnea and obesity as potential triggers of Afib especially as this episode occurred with her sleeping. If she is stable this afternoon she can be discharged from our standpoint. we will see her in the office in the next 10 to 14 days.
[2022-02-01] MEDS ORDERED: AMIODARONE 200 MG TAB PO SCH (08:00)
--- NOTE | 2022-02-01 08:11 | Anesthesiology Progress Note ---
Date of Service February 01, 2022 Anesthesia Post Procedure Vital Signs Vital Signs: Temp Pulse Pulse Resp BP BP Pulse Ox 02/01/22 08:03 36.7 C 62 20 128/89 95 02/01/22 07:45 60 14 112/78 98 02/01/22 07:38 60 16 104/73 98 02/01/22 07:30 60 16 104/73 98 02/01/22 04:55 36.8 C 103 H 16 134/91 96 01/31/22 23:21 36.9 C 89 18 110/75 95 01/31/22 23:16 90 01/31/22 19:30 36.7 C 81 18 102/64 96 01/31/22 17:14 131 H 108/72 01/31/22 15:11 36.8 C 102 H 20 106/70 94 01/31/22 14:55 140 H 01/31/22 12:36 133 H 01/31/22 12:22 36.5 C 122 H 20 105/74 95 01/31/22 11:55 140 H 117/84 01/31/22 10:47 01/31/22 10:15 122 H 18 108/72 96 01/31/22 10:00 94 H 18 108/72 95 01/31/22 09:42 107 H 19 124/86 96 Pulse Ox 02/01/22 08:03 02/01/22 07:45 02/01/22 07:38 02/01/22 07:30 02/01/22 04:55 01/31/22 23:21 01/31/22 23:16 01/31/22 19:30 01/31/22 17:14 01/31/22 15:11 01/31/22 14:55 01/31/22 12:36 01/31/22 12:22 01/31/22 11:55 01/31/22 10:47 95 01/31/22 10:15 01/31/22 10:00 01/31/22 09:42 Pain Intensity Medial Chest: Pain Intensity: 1 Transfer of Care Handoff Completed per policy Notes Mental Status: alert / awake / arousable Patient Amnestic to Procedure: Yes Nausea / Vomiting: adequately controlled Pain: adequately controlled Airway Patency, RR, SpO2: stable & adequate BP & HR: stable & adequate Hydration State: stable & adequate Anesthetic Complications: no major complications apparent
[2022-02-01] MEDS ORDERED: carvediloL 6.25 MG TAB PO SCH (09:00)
--- NOTE | 2022-02-01 17:33 | Discharge Summary ---
Date of Service February 01, 2022 Admission HPI Per Admitting Provider Mrs. Lake is a 56-year-old white female with an underlying past medical history of atrial fibrillation and hypertension. She presented to the emergency department complaining of chest pain X 30 minutes. Was awoken from a sleep complaining of substernal chest pain that was described as sharp. Radiated into the back. Rated as a 10/10. Denied cardiac awareness or palpitations but does have a history of underlying atrial fibrillation which prompted her to check her pulse. Could tell she was irregular and tachycardic prompting her to call EMS services. When he met a ride, heart rate was 150s to 170s. Was given Cardizem 10 mg IV in route and upon presentation to the ED, heart rate improved to 115. Was subsequently given Lopressor 5 mg IV and current heart rate is 105-118. Blood pressure stable at 127/93. She denies any further complaints of chest discomfort. Denies SOB, diaphoresis, N/V. Work-up otherwise unremarkable. CBC within normal limits. Metabolic panel shows mild hypokalemia of 3.2. Troponin is negative at 0.03. Covid test is negative. Pt follows with Dr. Lama. Takes Cored 18.75mg BID (did take her dose lastnight as prescribed and is compliant). No excessive caffeine. No ETOH use. No current illness. Patient will be hospitalized for further evaluation and care. Principal Diagnosis 1. A.Fib with RVR Discharge Exam General: Resting comfortably in her hospital bed. She does not appear ill or toxic. NAD. HEENT: Head is AT/NC. Buccal mucosa is moist and pink Neck: No JVD. Negative hepatojugular reflex Cardiac: Currently in a sinus rhythm with a rate of 62 bpm Lungs: CTA without W/R/R Abdomen: Normoactive X4. Soft and nontender in all quadrants. Extremities: No peripheral clubbing cyanosis or edema Neuro: A&O X4. Cranial nerves II through XII are grossly intact. No focal neuro deficits Skin: No obvious skin lesions or rashes Psych: Appropriate affect. Pleasant and cooperative Discharge Data Allergies Allergy/AdvReac Type Severity Reaction Status Date / Time Penicillins Allergy Mild Rash Verified 01/31/22 07:24 Consultations 01/31/22 06:30 ED Decision to Admit Stat 01/31/22 12:53 Consult Cardiology Routine 01/31/22 15:16 Consult Anesthesiology Routine Procedures Performed Operation Date: 02/01/22 07:15 Actual Procedures p Cardioversion - Elio Lama DO Hospital Course (1) Atrial fibrillation with rapid ventricular response: 56-year-old white female with an underlying past medical history of paroxysmal atrial fibrillation and hypertension presented in atrial fibrillation with RVR. * Awoke with severe chest pain. Checked her pulse and noted it to be fast an irregular prompting evaluation in the ED. * EMS services were notified and in route, given 10 mg of Cardizem IVP for heart rate of 150-180 * Upon presentation into the ED, heart rate was 105-150 * Additional rate controlling medications given in the form of IV Lopressor 5 mg * Patient was hospitalized and plan was to increase her Coreg to 25 mg in hopes to keep rate control * Unfortunately, she remained in A. fib with RVR/variable response requiring a Cardizem drip * Cardiology was consulted and given the fact that she has been anticoagulated with Eliquis and has not missed any doses, she was taken to the operating room on the morning of 02/01 for electrical cardioversion * Tolerated the procedure and is now in a sinus rhythm in the 60 * Cardiology has started amiodarone 200 mg twice a day and recommending continuation of this until seen in follow-up and then will determine necessity for ablation * Continue Coreg at 18.75 mg twice a day as per cardiology * Patient has been hemodynamically stable throughout the day. Will discharge to home to follow-up with cardiology within 10 to 14 days TSH normal Potassium slightly low at 3.2 upon presentation. Has been corrected and is now 4.0 Magnesium normal (2) Hypokalemia: * supplemented and resolved (3) Chest pain: * Suspect secondary to #1 as resolved with improved rate control * Initial troponin negative and EKG showing atrial fibrillation with variable response but no acute ST/T wave changes * Troponin has cycled and elevated at 0.59 * Her chest pain has since resolved and she is not having any EKG changes * Did not peak troponin with repeat labs today as would likely be elevated given cardioversion that has taken place * Suspected to have rate related ischemia * To follow-up with cardiology to discuss additional cardiac work-up (4) Hypertension: * Antihypertensive agents held upfront given Cardizem drip and increased dose of Coreg * BP starting to uptrend at 144/89 * Resume antihypertensive agents upon discharge Plan of care discussed with discussed with Dr. Bansal. Total Time Total Time Spent Total Time Spent (In Minutes): 35 Discharge Plan Discharge Items Patient Disposition: Home - Self-Care Reason For Visit: AFIB WITH RVR Discharge Diagnosis: 1. Atrial fibrillation with rapid ventricular response s/p electrical cardioversion Activity: Resume your previous activity Non-emergency contact: Primary Care Provider and Drive Worker Call non-emergency contact if: you have any medication questions and your symptoms worsen Follow-up/Referrals: Elio Lama DO [Physician] - 02/19/22 (Dr Garcia office will call pt on sunday 02/04) Carlos Allen [Primary Care Provider] - Diet: Heart Healthy Addtl Attending Provider Instructions: You presented to the emergency department complaining of chest pain and were found to be in atrial fibrillation with rapid response Initially, you were placed on medications to help bring your heart rate down; however, you remained in atrial fibrillation. Your motor mechanic was on board during this hospitalization. You had electrical cardioversion on the morning of 02/01 and are subsequently now in a normal rhythm. It is possible that you may go back into atrial fibrillation. Continue your carvedilol at 18.75 mg twice daily as prescribed prior to this hospitalization. In addition, make sure to remain on your Eliquis 5 mg twice daily. You have been started on a new medication called amiodarone which you are to take 200 mg twice daily until you see cardiology in follow-up It is possible that you will have cardiac ablation in the near future. Further management is at the discretion of your motor mechanic. While in the hospital, you had a slightly elevated troponin (cardiac enzyme). It is suspected that this is related to rate related ischemia (decreased blood flow to the heart muscle due to a fast heartbeat) as opposed to a heart attack from an unstable plaque. Again, follow-up with your motor mechanic to discuss need for further work-up. Follow-up with Dr. Lama within 10 to 14 days Return back to the emergency department with any new or worsening symptoms Pending Studies at Discharge: No Stand-Alone Forms: [employer], Work/School Release Medications and DC Order Prescriptions: New amiodarone 200 mg Tablet 200 mg PO BIDM Qty: 60 RF: 0 Continued Eliquis 5 mg Tablet 5 mg PO BID 30 Days Qty: 60 RF: 3 chlorthalidone 25 mg Tablet 12.5 mg PO DAILY RF: 0 nifedipine 90 mg Tablet Extended Release 24 Hr 90 mg PO DAILY RF: 0 carvedilol 12.5 mg tablet 18.75 mg PO BID RF: 0 valsartan 160 mg tablet 320 mg PO DAILY RF: 0 Discharge Orders: Discharge Order (Routine); Ordered 02/01/22 Ordered By: Marta Buenrostro Admission Data Admit Date/Time: 01/31/22 08:31 Attending Provider: Vikram Bansal Admit Provider: Vikram Bansal Primary Care Provider: Carlos Allen Other Providers: Vikram Bansal ; Shanta Soler ; Kait Soriano ; Perlita Posey ; Theresa Valenzuela ; Sarthak Miles ; Michael Friend ; Jagjit Fletcher ; Mack Rosa ; Jenn Rosa ; Krishna Aguillon ; Marta Harris ; Deuce Stewart ; Darron Francois ; Dayron Burns ; Lawrence Oshea ; Chely Michael ; Fuad Hilliard ; Afia Ziegler ; Sheryl Hilliard ; Yonatan Fairbanks ; Anna Ambrosio ; Keegan Chou ; Tiffanie Fuentes ; Shreya Clement ; Anna Bonilla. ; Yolande Méndez ; Maikel Pugh ; Eliz Sutherland ; Barb Mckeon ; Kathe Rosenthal ; Gladis Barbosa ; Daniel Barbosa V ; Seth Kenney ; Kait Givens ; Alexander Huber ; Natali Andujar ; Jaqueline Sherwood ; Daniel Malin ; Matheus Michael ; Maulik Marc ; Annalise Abrams ; Kimberly Medina ; Daniel Boss ; Kathe Dickson ; Teodoro White ; Reji Oshea ; Eliza Johnson ; Kamar Zelaya ; Brooklyn Landaverde ; Panchito Monteiro ; Ez Guerra ; Kamar Newman ; Sarthak Reaves Jr ; Katia Padgett ; Shante Farley ; Elio Lama Other Interventions: Discharge Summary Assessment (RN) Last Done: 02/01/22 15:18 Coding Level of Care Code 02633 OBS Care - Discharge Diagnoses Atrial fibrillation with rapid ventricular response I48.91 Hypokalemia E87.6 Chest pain R07.9 Hypertension I10
--- NOTE | 2022-02-01 18:58 | Electrocardiogram Report ---
Test Reason : Blood Pressure : / mmHG Vent. Rate : 087 BPM Atrial Rate : 241 BPM P-R Int : 000 ms QRS Dur : 082 ms QT Int : 410 ms P-R-T Axes : 000 026 032 degrees QTc Int : 493 ms Atrial fibrillation Nonspecific ST abnormality Prolonged QT Abnormal ECG When compared with ECG of 31-JAN-2022 04:53, Non-specific change in ST segment in Inferior leads Nonspecific T wave abnormality, improved in Inferior leads Confirmed by Geovanni Hennessy ([id number]) on 02/01/2022 6:57:27 PM Referred By: REFERRED SELF Confirmed By:Dwayne Hennessy
--- NOTE | 2022-02-04 22:10 | Electrocardiogram Report ---
Test Reason : Blood Pressure : / mmHG Vent. Rate : 062 BPM Atrial Rate : 062 BPM P-R Int : 144 ms QRS Dur : 076 ms QT Int : 464 ms P-R-T Axes : 041 030 037 degrees QTc Int : 470 ms Normal sinus rhythm Normal ECG When compared with ECG of 01-FEB-2022 05:08, Sinus rhythm has replaced Atrial fibrillation Confirmed by Alexx Bal ([id number]) on 02/04/2022 10:10:17 PM Referred By: REFERRED SELF Confirmed By:Alexx Bal
== END 2022-02-01 15:39 | disposition home or self-care (01) ==
LOC: 2S 03:59 → ED 03:59 → 2S 10:15

== ENCOUNTER 2022-10-12 11:35 | Observation (INO) ==
[2022-10-12 11:58] LABS: Basophils # (auto) 0.02 K/uL (0-0.2); Basophils % (auto) 0.1 %; Eosinophils # (auto) 0.01 K/uL (0-0.50); Eosinophils % (auto) 0.1 %; Hemoglobin 15.4 g/dl (12.0-16.0); Immature Granulocytes # (auto) 0.13 K/uL (0.00-0.02); Immature Granulocytes % (auto) 0.8 %; Lymphocytes % (auto) 9.3 %; Mean Corpuscular Hemoglobin 29.6 pg (25.0-34.0); Mean Corpuscular Hgb Conc 34.2 g/dL (32.0-36.0); Mean Corpuscular Volume 86.4 fL (80.0-100.0); Mean Platelet Volume 12.8 fL (9.4-12.3); Monocytes # (auto) 1.03 K/uL (0.24-0.82); Neutrophils # (auto) 14.48 K/uL (1.4-6.5); Neutrophils % (auto) 83.7 %; Platelet Count 208 K/uL (130-400); RDW Coefficient of Variation 13.8 % (11.5-14.5); RDW Standard Deviation 43.9 fL (36.4-46.3); Red Blood Count 5.21 M/uL (3.93-5.22); White Blood Count 17.27 K/ul (4.8-10.8)
[2022-10-12 12:11] LABS: INR 1.1 (0.9-1.1); Partial Thromboplastin Ratio 1.1; Partial Thromboplastin Time 29.1 Seconds (21.0-31.0); Prothrombin Time 11.2 Seconds (9.0-12.0)
[2022-10-12 12:29] LABS: Albumin Globulin Ratio 1.4 (0.9-2); Albumin Level 4.3 gm/dl (3.4-5.0); BUN Creatinine Ratio 27.1 (10-20); Calcium 9.5 mg/dl (8.5-10.1); Creatinine Clr Calc Pharmacy 75.8 ml/min; Est GFR (Non-African American) 77.7 ml/min; Globulin 3.1 gm/dl (2.5-4.0); Magnesium 1.9 mg/dl (1.7-2.4); Total Protein 7.4 gm/dl (6.0-8.3)
--- NOTE | 2022-10-12 12:55 | XRay Report ---
XR chest 1V portable HISTORY: Shortness of breath. COMPARISON: Chest 322. FINDINGS: No pneumothorax. No pleural effusions. The heart remains top normal in size. There is mild diffuse interstitial thickening, unchanged. No new focal lung consolidations identified. There is an old left humeral neck fracture again noted. IMPRESSION: No significant change compared to the prior study. No acute process. ACT 112: Negative or not required by law. Electronically signed by: Mack Romero M.D. 10/12/2022 12:54 PM
--- NOTE | 2022-10-12 14:05 | Emergency Department Note ---
Impression & Plan Dyspnea, Acute electrocardiogram changes, Hypokalemia Admit to the [facility] ED Provider Note NAME: KRAIG DUTTON AGE: 56 SEX: F ARRIVES VIA: Walk-In INFORMANT: Patient ED PROVIDER(S): Sunitha Romero DO CHIEF COMPLAINT: Shortness of breath PLAN: Disposition: Admit to the [facility] Condition: Good MEDICAL DECISION MAKING: This is a 56-year-old female patient who presents to the emergency department with shortness of breath with exertion. Patient has tried taking Tessalon Perles and Sudafed but got no relief. Her PCP started her on prednisone and doxycycline over the past 5 days but her shortness of breath has gotten worse, especially with exertion. Patient presents to the emergency department for evaluation. She is noted to have twelve-lead EKG changes. Troponin was normal. Patient has been having some intermittent episodes of chest discomfort. She has had a previous cardiac catheterization but has been more than 10 years ago according to the patient. Patient was then to be hypokalemic with a mildly elevated white blood cell count. She was given oral aspirin and oral potassium. [facility] for [facility] management. Triage Nursing notes reviewed and agree with them. Vital Signs: reviewed and remarkable for hypertension Differential diagnosis: Pneumonia, CHF, cardiac dysrhythmia, STEMI, NSTEMI, COVID ER treatment provided: Oral aspirin Oral potassium Diagnostics interpreted by me: ECG: Sinus bradycardia 57 with T wave inversions in the anterior and lateral leads which is a new finding. Cardiac Monitoring: Normal sinus rhythm at a rate of 60 Laboratory studies: See below Imaging studies: As per my interpretation portable chest x-ray: No acute pulmonary infiltrates or consolidation See below HPI: 56/F arrives for evaluation of shortness of breath with exertion. Patient has had increasing upper respiratory symptoms and shortness of breath/cough. Patient has noticed increasing shortness of breath with exertion after taking Tessalon Perles and Sudafed. Her PCP called in prednisone and doxycycline approximately 5 days ago but the symptoms have worsened. The patient is a smoker. ROS: See above HPI for pertinent positives & negatives. A total of 10 systems reviewed and were otherwise negative. PAST MEDICAL HISTORY:See Below PAST SURGICAL HISTORY:See Below FAMILY HISTORY:See Below SOCIAL HISTORY:See Below HOME MEDICATIONS:See list ALLERGIES:Penicillin VITALS:See Below PHYSICAL EXAMINATION: HEENT: Head - normocephalic and atraumatic Pupils are equal, round, and reactive to light. Extraocular eye muscles are intact, and sclera are anicteric. Nose - moist nasal mucosa without discharge. Mouth - moist buccal mucosa. Oropharynx is nonerythematous and there is no tonsillar exudate or edema noted. Neck: Supple; no JVD, nuchal rigidity, cervical lymphadenopathy, or auscultated bruits. Heart: Regular rate and rhythm. There is a normal S1 and S2 with no murmurs, clicks, or gallops appreciated. Lungs: Clear to auscultation bilaterally with no wheezes, rales, or rhonchi. Abdomen: Soft, completely nontender, nondistended, with good bowel sounds. There are no palpable pulsatile masses or hepatosplenomegaly. There is no guarding, rigidity, or rebound noted. Extremities: No evidence of cyanosis, clubbing, or edema. There are easily palpable peripheral pulses. Skin: warm and dry with good turgor and no rashes. ED COURSE: Times/Reassessments: 1250: The patient was evaluated in room C1. A complete history and physical was performed. An order was placed for continuous cardiac monitoring. The patient was in a normal sinus rhythm at a rate of 60. A twelve-lead EKG was obtained as described above. A portable chest x-ray was performed. Patient was given oral aspirin. She was noted to be hypokalemic and was given oral potassium. Reviewed the results of the EKG and the associated changes with the patient. Initially, the patient wanted to sign out AMA stating that she would follow-up with Dr. Lama. She then changed her mind and was willing to consider staying in the hospital. Sunitha Romero DO Past Med/Surg History Medical History Atrial fibrillation with rapid ventricular response Atrial fibrillation with RVR Chest pain Encounter for smoking cessation counseling Heart burn Hypertension Obesity Surgical History H/O laparoscopy X 2 History of appendectomy History of cardiac cath [facility] (NO STENTS) History of dilatation and curettage History of tooth extraction Hx of hysterectomy Family History Grandmother (Maternal) Family history of diabetes mellitus Social History Smoking Status: Current every day smoker Tobacco Type: E-cigarettes / Vaping Cigarettes Per Day: 27-37 mg of nicotene/day; Second Hand Exposure: No; Hx Alcohol Use: Yes Alcohol type: wine Hx Substance Use: No Preferred Language: Irish Communication Ability: Effective [employer] Required: No Beliefs That Will Affect Care: None Current Living Situation: Other Current Living Situation Comment: pt lives at home with fiance Feels Safe at Home: Yes Assistive Devices: None Allergies Allergies Allergy/AdvReac Type Severity Reaction Status Date / Time Penicillins Allergy Mild Rash Verified 10/13/22 09:22 Home Meds Home Medications Medication Instructions Recorded Confirmed carvedilol 12.5 mg tablet 25 mg PO BID 01/31/22 10/13/22 chlorthalidone 25 mg tablet 12.5 mg PO QAM 01/31/22 10/13/22 valsartan 160 mg tablet 320 mg PO DAILY 01/31/22 10/13/22 benzonatate 100 mg capsule 100 mg PO TID PRN Cough 10/13/22 10/13/22 Previous Rx's Medication Instructions Recorded apixaban 5 mg tablet (Eliquis) 5 mg PO BID 30 days #60 tabs 08/14/20 Results & Data (ED) Vital Signs Vital Signs - 24 hr 10/12/22 11:37 10/12/22 11:37 10/12/22 11:37 Temperature 36.6 C Temperature Source Temporal Artery Scan Pulse Rate 70 Pulse Rate from SpO2 Sensor Respiratory Rate 20 Respiratory Effort / Characteristics Non-Labored Respiratory Depth Normal Blood Pressure 206/115 H Blood Pressure Mean 145 Blood Pressure Position Sitting Pulse Oximetry 93 93 Oxygen Delivery Method Room Air Room Air Room Air Oxygen Flow Rate Sepsis Recent Fever Within 48 Hours Yes Sepsis New/Unexplained Change in Mental Status N/A Sepsis Action Taken by Nursing No Action Required 10/12/22 12:23 10/12/22 12:23 10/12/22 12:28 Temperature Temperature Source Pulse Rate 57 L Pulse Rate from SpO2 Sensor 59 L Respiratory Rate 18 Respiratory Effort / Characteristics Non-Labored Spontaneous Respiratory Depth Blood Pressure Blood Pressure Mean Blood Pressure Position Pulse Oximetry 94 94 94 Oxygen Delivery Method Room Air Room Air Oxygen Flow Rate 0 Sepsis Recent Fever Within 48 Hours Sepsis New/Unexplained Change in Mental Status Sepsis Action Taken by Nursing 10/12/22 12:30 10/12/22 12:30 10/12/22 13:00 Temperature Temperature Source Pulse Rate 57 L 61 Pulse Rate from SpO2 Sensor 57 L 59 L Respiratory Rate 21 17 Respiratory Effort / Characteristics Respiratory Depth Blood Pressure 186/125 H Blood Pressure Mean 145 Blood Pressure Position Pulse Oximetry 93 95 Oxygen Delivery Method Oxygen Flow Rate Sepsis Recent Fever Within 48 Hours Sepsis New/Unexplained Change in Mental Status Sepsis Action Taken by Nursing 10/12/22 13:01 10/12/22 13:01 10/12/22 13:30 Temperature Temperature Source Pulse Rate 59 L 64 Pulse Rate from SpO2 Sensor 58 L 62 Respiratory Rate 19 17 Respiratory Effort / Characteristics Respiratory Depth Blood Pressure 206/108 H Blood Pressure Mean 140 Blood Pressure Position Pulse Oximetry 95 95 Oxygen Delivery Method Oxygen Flow Rate Sepsis Recent Fever Within 48 Hours Sepsis New/Unexplained Change in Mental Status Sepsis Action Taken by Nursing 10/12/22 13:31 10/12/22 13:31 Temperature Temperature Source Pulse Rate 60 Pulse Rate from SpO2 Sensor 60 Respiratory Rate 20 Respiratory Effort / Characteristics Respiratory Depth Blood Pressure 174/104 H Blood Pressure Mean 127 Blood Pressure Position Pulse Oximetry 94 Oxygen Delivery Method Oxygen Flow Rate Sepsis Recent Fever Within 48 Hours Sepsis New/Unexplained Change in Mental Status Sepsis Action Taken by Nursing Laboratory Data Result diagrams: 10/13/22 06:01 10/13/22 06:01 Lab Results 10/12/22 10/12/22 10/12/22 Range/Units 11:47 11:47 11:47 WBC 17.27 H (4.8-10.8) K/ul RBC 5.21 (3.93-5.22) M/uL Hgb 15.4 (12.0-16.0) g/dl Hct 45.0 H (34.1-44.9) % MCV 86.4 (80.0-100.0) fL MCH 29.6 (25.0-34.0) pg MCHC 34.2 (32.0-36.0) g/dL RDW Std Deviation 43.9 (36.4-46.3) fL RDW Coeff of Lucia 13.8 (11.5-14.5) % Plt Count 208 (130-400) K/uL MPV 12.8 H (9.4-12.3) fL Immature Gran % (Auto) 0.8 % Neut % (Auto) 83.7 % Lymph % (Auto) 9.3 % [place] % (Auto) 6.0 % Eos % (Auto) 0.1 % Baso % (Auto) 0.1 % Neut # (Auto) 14.48 H (1.4-6.5) K/uL Lymph # (Auto) 1.60 (1.2-3.4) K/uL [place] # (Auto) 1.03 H (0.24-0.82) K/uL Eos # (Auto) 0.01 (0-0.50) K/uL Baso # (Auto) 0.02 (0-0.2) K/uL Immature Gran # (Auto) 0.13 H (0.00-0.02) K/uL PT 11.2 (9.0-12.0) Seconds INR 1.1 (0.9-1.1) APTT 29.1 (21.0-31.0) Seconds PTT Ratio 1.1 Sodium 138 (136-145) mmol/L Potassium 3.0 L (3.5-5.1) mmol/L Chloride 100 (98-107) mmol/L Carbon Dioxide 28 (21-32) mmol/L Anion Gap 10 (3-11) BUN 23 (6-23) mg/dl Creatinine 0.85 (0.6-1.2) mg/dl Est Cr Clr Drug Dosing 75.8 ml/min Est GFR ( Amer) 90.0 ml/min Est GFR (Non-Af Amer) 77.7 ml/min BUN/Creatinine Ratio 27.1 H (10-20) Glucose 95 (70-99(Fasting)) mg/dl Calcium 9.5 (8.5-10.1) mg/dl Magnesium 1.9 (1.7-2.4) mg/dl Total Bilirubin 1.0 (0.2-1.0) mg/dl AST 10 L (13-39) U/L ALT 8 (7-52) U/L Alkaline Phosphatase 92 (34-104) U/L Troponin I High Sens (0-14) pg/ml Total Protein 7.4 (6.0-8.3) gm/dl Albumin 4.3 (3.4-5.0) gm/dl Globulin 3.1 (2.5-4.0) gm/dl Albumin/Globulin Ratio 1.4 (0.9-2) SARS-CoV-2, RNA, NAAT (NEGATIVE) 10/12/22 10/12/22 Range/Units 14:05 15:00 WBC (4.8-10.8) K/ul RBC (3.93-5.22) M/uL Hgb (12.0-16.0) g/dl Hct (34.1-44.9) % MCV (80.0-100.0) fL MCH (25.0-34.0) pg MCHC (32.0-36.0) g/dL RDW Std Deviation (36.4-46.3) fL RDW Coeff of Lucia (11.5-14.5) % Plt Count (130-400) K/uL MPV (9.4-12.3) fL Immature Gran % (Auto) % Neut % (Auto) % Lymph % (Auto) % [place] % (Auto) % Eos % (Auto) % Baso % (Auto) % Neut # (Auto) (1.4-6.5) K/uL Lymph # (Auto) (1.2-3.4) K/uL [place] # (Auto) (0.24-0.82) K/uL Eos # (Auto) (0-0.50) K/uL Baso # (Auto) (0-0.2) K/uL Immature Gran # (Auto) (0.00-0.02) K/uL PT (9.0-12.0) Seconds INR (0.9-1.1) APTT (21.0-31.0) Seconds PTT Ratio Sodium (136-145) mmol/L Potassium (3.5-5.1) mmol/L Chloride (98-107) mmol/L Carbon Dioxide (21-32) mmol/L Anion Gap (3-11) BUN (6-23) mg/dl Creatinine (0.6-1.2) mg/dl Est Cr Clr Drug Dosing ml/min Est GFR ( Amer) ml/min Est GFR (Non-Af Amer) ml/min BUN/Creatinine Ratio (10-20) Glucose (70-99(Fasting)) mg/dl Calcium (8.5-10.1) mg/dl Magnesium (1.7-2.4) mg/dl Total Bilirubin (0.2-1.0) mg/dl AST (13-39) U/L ALT (7-52) U/L Alkaline Phosphatase (34-104) U/L Troponin I High Sens 9.0 (0-14) pg/ml Total Protein (6.0-8.3) gm/dl Albumin (3.4-5.0) gm/dl Globulin (2.5-4.0) gm/dl Albumin/Globulin Ratio (0.9-2) SARS-CoV-2, RNA, NAAT NEGATIVE (NEGATIVE) Administered Medications Discontinued Medications Amlodipine Besylate (Amlodipine Besylate 5 Mg Tab) 5 mg PO NOW ONE Stop: 10/12/22 16:08 Last Admin: 10/12/22 16:17 Dose: 5 mg Documented By: GREG Amlodipine Besylate (Amlodipine Besylate 5 Mg Tab) 5 mg PO NOW ONE Stop: 10/12/22 18:29 Last Admin: 10/12/22 19:19 Dose: 5 mg Documented By: ROXANN Apixaban (Apixaban 5 Mg Tablet) 5 mg PO BID ELISHA Stop: 11/12/22 08:59 Last Admin: 10/13/22 09:53 Dose: 5 mg Documented By: ARIEL Aspirin (Aspirin Chew 324 Mg) 324 mg PO NOW STA Stop: 10/12/22 15:05 Last Admin: 10/12/22 15:17 Dose: 324 mg Documented By: GREG Carvedilol (Carvedilol 25 Mg Tab) 25 mg PO BID ELISHA Stop: 11/11/22 20:59 Last Admin: 10/13/22 09:53 Dose: 25 mg Documented By: Admin: 10/12/22 21:27 Dose: 25 mg Documented By: ROXANN Chlorthalidone (Chlorthalidone 25 Mg Tab) 12.5 mg PO QAM ELISHA Stop: 11/12/22 08:59 Last Admin: 10/13/22 08:08 Dose: 12.5 mg Documented By: ARIEL Potassium Chloride (Potassium Chloride Crtab 20 Meq Tabcr) 40 meq PO NOW STA Stop: 10/12/22 14:52 Last Admin: 10/12/22 14:55 Dose: 40 meq Documented By: AM Valsartan (Valsartan 80 Mg Tab) 320 mg PO QAM [facility] Stop: 11/12/22 08:59 Last Admin: 10/13/22 08:08 Dose: 320 mg Documented By: VBL Imaging Data Radiologist's Impression: Chest X-Ray 10/12/22 11:41 XR chest 1V portable HISTORY: Shortness of breath. COMPARISON: Chest 322. FINDINGS: No pneumothorax. No pleural effusions. The heart remains top normal in size. There is mild diffuse interstitial thickening, unchanged. No new focal lung consolidations identified. There is an old left humeral neck fracture again noted. IMPRESSION: No significant change compared to the prior study. No acute process. ACT 112: Negative or not required by law. Electronically signed by: Mcak Romero M.D. 10/12/2022 12:54 PM Discharge Plan Visit Data Chief Complaint: Shortness of Breath/Dyspnea Stated Complaint: SOB ED Provider: Sunitha Romero Discharge Problem: Dyspnea, Acute electrocardiogram changes, Hypokalemia Patient Disposition: Admitted As Inpatient Discharge Instructions Interventions: ED Discharge Assessment Last Done: 10/12/22 18:20 : Dyspnea Qualifiers: Dyspnea type: unspecified Qualified Code(s): R06.00 - Dyspnea, unspecified
[2022-10-12] MEDS ORDERED: POTASSIUM CHLORIDE CRTAB 20 MEQ TABCR PO STA (14:51)
[2022-10-12] MEDS ORDERED: ASPIRIN CHEW 324 MG PO STA (15:04)
--- NOTE | 2022-10-12 15:30 | History & Physical Report ---
Date of Service October 12, 2022 Assessment & Plan (1) Shortness of breath: Plan: Patient is a 56-year-old female with a history of A. fib in sinus since ablation and cardioversion, vape use, who presents with 1 week of upper respiratory congestion which moved into her chest and shortness of breath on exertion with some chest tightness which she felt was more consistent with bronchitis but he was found to have new T wave inversions on EKG and is recommended for cardiac eval Chest congestion Patient reports 1 week of sinus congestion which then moved into her chest which feels similar to prior bronchitis. She does have a mild leukocytosis At time of assessment patient feels some shortness of breath with exertion, similar to when she has a cold. Denies chest pain but reports that she has a band of upper chest discomfort similar to when she has had colds in the past Denies chest pain with exertion, worsened chest pressure with exertion Completed 5 days of Doxy/prednisone without significant improvement Denies fever/chills/sweats/diarrhea Denies history of COPD, does have an expiratory wheeze diffusely. Does vape up to 4 times per day, denies cigarette use Given new wheeze, shortness of breath and congestion which have not improved o alex a week we will obtain Noncon CT. Counseled on risk of vape induced lung injury/nicotine use Leukocytosis to 17? Underlying bronchitis versus demargination with steroid use Antibiotics pending CT results Chest pain History of hypertension, obesity BMI 38.9. No prior history of diabetes/impaired fasting glucose. Uses vape products. Seen by cardiology 02/01/2022 for chest discomfort with atrial fibrillation - hemoglobin 15.4, MCV 86 EKG: New T wave inversions in lateral leads. 2-hour troponin trended, echo pending. Patient endorses some congestion type chest pressure, but no chest pain "I have had chest pain before, this is different ". CT pending as above. If troponin and echo are normal, recommend following up for stress test. No evidence of ACS Potassium low at 3.0, oral and IV repletion ordered Magnesium 1.9, oral x1 ordered Creatinine is with normal baseline less than 1, 0.85 on admission CXR no acute changehigh sensitive troponin 9.0 Hypokalemia Repleted as noted Atrial fibrillation Anticoagulated with Eliquis twice daily, on amiodarone Continue rate control with carvedilol In sinus on admission Hypertension No longer takes nifedipine due to orthostasis. 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 PCR negative for COVID. Was given tessalon perles and pseudophed. [place] like she developed a chest fcold over the next few days and was given doxy 100mg BID and pred 20mg BID which she has taken now for a total of 5 days (took morning dose today). Has increased shortness of breath just walking across the room. No chest pain, but does endorse a tight squeezing across her chest which feels similar to past episodes of bronchitis. Stress test 10 years ago was normal. No stress test since then. HTN. No hx DM or preDM. No CVA. MGM with MIs starting in 50s without tobacco use. Mother with Afib at age 77. Vapes daily 4-5x per day. Nicotine vape. Takes valsartan 320mg daily, chlorthalidone 12.5mg daily, carvedilol 25mg BID, eliquis 5 BID, doxycycline/pred as notedStopped nifedipine 2/2 orthostasis. No problems with leg swelling. No orthopnea. No fevers/chills last few days. Sx more in chest than sinuses. Denies sinus congestion. Medical History: Reviewed Medications: Reviewed Surgical History: Reviewed Allergies: Reviewed Social History: Daily vape use, social alcohol, denies tobacco Code Status: Full code Surrogate phone [phone]. Allergies Allergy/AdvReac Type Severity Reaction Status Date / Time Penicillins Allergy Mild Rash Verified 01/31/22 07:24 Home Medications Medication Instructions Recorded Confirmed Type apixaban 5 mg tablet (Eliquis) 5 mg PO BID 30 days #60 tabs 08/14/20 01/31/22 Rx carvedilol 12.5 mg tablet 18.75 mg PO BID 01/31/22 01/31/22 History chlorthalidone 25 mg tablet 12.5 mg PO DAILY 01/31/22 01/31/22 History nifedipine 90 mg tablet,extended 90 mg PO DAILY 01/31/22 01/31/22 History release 24 hr valsartan 160 mg tablet 320 mg PO DAILY 01/31/22 01/31/22 History amiodarone 200 mg tablet 200 mg PO BIDM #60 tabs 02/01/22 Rx Past Med/Surg History Medical History Atrial fibrillation with rapid ventricular response Atrial fibrillation with RVR Chest pain Encounter for smoking cessation counseling Heart burn Hypertension Obesity Surgical History H/O laparoscopy X 2 History of appendectomy History of cardiac cath [facility] (NO STENTS) History of dilatation and curettage History of tooth extraction Hx of hysterectomy Family History Grandmother (Maternal) Family history of diabetes mellitus Social History Smoking Status: Current every day smoker Tobacco Type: E-cigarettes / Vaping Cigarettes Per Day: 27-37 mg of nicotene/day; Second Hand Exposure: Yes (MOTHER SMOKES); Hx Alcohol Use: Yes Alcohol type: hard liquor Hx Substance Use: No Preferred Language: Mongolian Communication Ability: Effective Radio Personality Required: No Beliefs That Will Affect Care: None Current Living Situation: Spouse Current Living Situation Comment: lives with fiance Feels Safe at Home: Yes Assistive Devices: None Review of Systems Review of Systems: All systems reviewed & are unremarkable except as noted in HPI & below Physical Exam Physical Exam: General: A&Ox3. NAD. Cooperative. HEENT: Atraumatic, normocephalic. Eom intact. Vision/hearing intact, Pulm: Scattered expiratory wheezes, bibasilar crackles. Symmetrical chest rise. No increased work of breathing. No respiratory distress. Cardiac: RRR, -mrg. Radial pulses intact and symmetrical. No JVD. No Edema. Abdominal: Nontender, nondistended, soft. BS present. Ext: Warm, dry. 5/5 [address] sprinkler strength/ankle dorsi and plantarflexion. Sensation to soft touch grossly intact bilat. Results & Data Results & Data ([facility]) Vital Signs (Past 12 Hours) Vital Signs Temp Pulse Resp BP Pulse Ox O2 Del Method O2 Flow Rate 10/12/22 13:31 174/104 H 10/12/22 13:31 60 20 94 10/12/22 13:30 64 17 95 10/12/22 13:01 206/108 H 10/12/22 13:01 59 L 19 95 10/12/22 13:00 61 17 95 10/12/22 12:30 57 L 21 93 10/12/22 12:30 186/125 H 10/12/22 12:28 57 L 18 94 10/12/22 12:23 94 Room Air 0 10/12/22 12:23 94 Room Air 10/12/22 11:37 93 Room Air 10/12/22 11:37 36.6 C 70 20 206/115 H 93 Room Air 10/12/22 11:37 Room Air PG Care Time/CCT Total # of Minutes Spent Total Time Spent with Patient: Total time spent is greater than 50% in coordination of care (as documented) at patient's floor/unit and/or counseling patient: Coding Level of Care Code INT OBSERVATION CARE 50M LVL 2 Diagnoses Shortness of breath R06.02 Hypokalemia E87.6 Hypertension I10 Morbid obesity with BMI of 40.0-44.9, adult E66.01; Z68.41 Chest pain R07.9
[2022-10-12] MEDS ORDERED: amLODIPine BESYLATE 5 MG TAB PO ONE ×2 (16:07→18:28)
--- NOTE | 2022-10-12 16:57 | CT Scan Report ---
CT chest diagnostic wo con CT DOSE: 450.04 mGy.cm HISTORY: Short of breath. Wheezing. TECHNIQUE: Multiaxial CT images of the chest were performed without contrast. A dose lowering techni que was utilized adhering to the principles of ALARA. COMPARISON: None. FINDINGS: There is mild diffuse bronchial wall thickening. No pneumothorax. No pleural effusions. Mul tifocal patchy groundglass airspace opacities seen throughout the lungs. There are few scattered subc entimeter pulmonary nodules identified. Dominant nodule within the left lower lobe on image 177 measu res 5 mm. No fractures within the visualized osseous structures. Normal esophagus. Limited views of t he upper abdomen demonstrate a normal liver, spleen, and adrenal glands. The heart is normal in size. No pleural or pericardial effusions. Normal caliber thoracic aorta. Moderate calcified plaque within the coronary arteries. IMPRESSION: 1. Multifocal groundglass airspace opacities seen throughout the lungs. This is consistent with an at ypical/viral pneumonitis. 2. Mild diffuse bronchial wall thickening consistent with a bronchitis. 3. A few scattered subcentimeter indeterminate pulmonary nodules with the largest in the left lower l obe measuring 5 mm. Please refer to below summary of Fleischner criteria recommendations for follow-up of incidental CT n odules (Marya Clifford, Guidelines for management of small pulmonary nodules detected on CT scans: A sta tement from the Fleischner Society, Radiology 237: [phone].) SOLID NODULES Solitary nodule size: <6 mm * Low risk patients: no follow-up needed * high risk patients: optional CT at 12 months Solitary nodule size: 6-8 mm * Low risk patients: follow-up at 6-12 months, then consider further follow-up at 18-24 months * high risk patients: initial follow-up CT at 6-12 months and then at 18-24 months if no change Solitary nodule size: >8 mm * either low or high risk patients - consider follow-up CT at 3 months, and/or CT-PET, and/or biopsy Multiple nodules size: <6 mm * Low risk patients: no routine follow-up * high risk patients: optional CT at 12 months Multiple nodules size: 6-8 mm * Low risk patients: follow-up at 3-6 months, then consider further follow-up at 18-24 months * high risk patients: follow-up at 3-6 months, then at 18-24 months if no change Multiple nodules size: >8 mm * Low risk patients: follow-up at 3-6 months, then consider further follow-up at 18-24 months * high risk patients: follow-up at 3-6 months, then at 18-24 months if no change Note: newly detected indeterminate nodule in persons 35 years of age or older. * Low risk patients: minimal or absent history of smoking and/or other known risk factors * high risk patients: history of smoking or of other known risk factors (e.g. first degree relative with lung cancer, or exposure to asbestos, radon, uranium) * if a nodule up to 8 mm is partly solid or is ground glass further follow-up is required after 24 m onths to exclude possible slow growing adenocarcinoma (VIVIAN) SUBSOLID NODULES Solitary pure ground-glass nodule * nodule size <6 mm - no CT follow-up required * nodule size >=6 mm - follow-up CT at 6-12 months, then every 2 years until 5 years Solitary part-solid nodule * nodule size <6 mm - no CT follow-up required * nodule size >=6 mm - follow-up CT at 3-6 months. If unchanged, and solid component remains <6 mm, then annual follow-up for 5 years Multiple subsolid nodules * nodule size <6 mm - follow-up CT at 3-6 months, consider further follow-up at 2 and 4 years if sta ble * nodule size >=6 mm - follow-up CT at 3-6 months, subsequent management based on the most suspiciou s nodule(s) ACT 112: Negative or not required by law. Electronically signed by: Mack Romero M.D. 10/12/2022 4:55 PM
[2022-10-12] MEDS ORDERED: ACETAMINOPHEN 325 MG TAB PO PRN (18:28)
[2022-10-12] MEDS: carvediloL 25 MG TAB PO SCH (21:27)
[2022-10-13 06:17] LABS: Basophils # (auto) 0.03 K/uL (0-0.2); Basophils % (auto) 0.3 %; Eosinophils # (auto) 0.02 K/uL (0-0.50); Eosinophils % (auto) 0.2 %; Hematocrit (blood only) 41.6 % (34.1-44.9); Hemoglobin 14.3 g/dl (12.0-16.0); Immature Granulocytes # (auto) 0.04 K/uL (0.00-0.02); Immature Granulocytes % (auto) 0.4 %; Lymphocytes # (auto) 3.81 K/uL (1.2-3.4); Lymphocytes % (auto) 38.1 %; Mean Corpuscular Hemoglobin 29.4 pg (25.0-34.0); Mean Corpuscular Hgb Conc 34.4 g/dL (32.0-36.0); Mean Corpuscular Volume 85.6 fL (80.0-100.0); Mean Platelet Volume 12.9 fL (9.4-12.3); Monocytes # (auto) 0.81 K/uL (0.24-0.82); Monocytes % (auto) 8.1 %; Neutrophils # (auto) 5.29 K/uL (1.4-6.5); Neutrophils % (auto) 52.9 %; Platelet Count 181 K/uL (130-400); RDW Coefficient of Variation 14.1 % (11.5-14.5); RDW Standard Deviation 44.2 fL (36.4-46.3); Red Blood Count 4.86 M/uL (3.93-5.22)
[2022-10-13 06:50] LABS: Calcium 8.8 mg/dl (8.5-10.1); Creatinine Clr Calc Pharmacy 83.5 ml/min; Est GFR (African American) 101.5 ml/min; Est GFR (Non-African American) 87.5 ml/min; Potassium 3.5 mmol/L (3.5-5.1)
[2022-10-13] MEDS: carvediloL 25 MG TAB PO SCH ×2 (08:11→09:53)
[2022-10-13] MEDS ORDERED: VALSARTAN 80 MG TAB PO SCH (09:00)
[2022-10-13] MEDS ORDERED: APIXABAN 5 MG TABLET PO SCH (09:00)
[2022-10-13] MEDS ORDERED: CHLORTHALIDONE 25 MG TAB PO SCH (09:00)
[2022-10-13 09:15] LABS: Adenovirus PCR Not Detected (NotDetected); Bordetella parapertussis PCR Not Detected (NotDetected); Bordetella pertussis PCR Not Detected (NotDetected); Chlamydia pneumoniae PCR Not Detected (NotDetected); Coronavirus 229E PCR Not Detected (NotDetected); Coronavirus HKU1 PCR Not Detected (NotDetected); Coronavirus NL63 PCR Not Detected (NotDetected); Coronavirus OC43PCR Not Detected (NotDetected); Human Metapneumovirus PCR Not Detected (NotDetected); Influenza A PCR Not Detected (NotDetected); Influenza B PCR Not Detected (NotDetected); Mycoplasma pneumoniae PCR Not Detected (NotDetected); Parainfluenza Virus 1 PCR DETECTED (NotDetected); Parainfluenza Virus 2 PCR Not Detected (NotDetected); Parainfluenza Virus 3 PCR Not Detected (NotDetected); Parainfluenza Virus 4 PCR Not Detected (NotDetected); Respiratory Syncytial VirusPCR Not Detected (NotDetected); Rhinovirus/Enterovirus PCR Not Detected (NotDetected)
[2022-10-13 09:24] LABS: Coronavirus CoV-2 (COVID19)PCR DETECTED (NotDetected)
--- NOTE | 2022-10-13 10:56 | XCELERA ---
[id number]
--- NOTE | 2022-10-13 11:10 | Electrocardiogram Report ---
Test Reason : Blood Pressure : / mmHG Vent. Rate : 057 BPM Atrial Rate : 057 BPM P-R Int : 130 ms QRS Dur : 082 ms QT Int : 472 ms P-R-T Axes : 017 007 163 degrees QTc Int : 459 ms Poor data quality, interpretation may be adversely affected Sinus bradycardia T-wave inversion in Anterolateral leads , consider ischemia Abnormal ECG When compared with ECG of 01-FEB-2022 07:33, T wave inversion now evident in Anterolateral leads Confirmed by Eduardo Montes ([id number]) on 10/13/2022 11:09:56 AM Referred By: REFERRED SELF Confirmed By:Eduardo Montes
--- NOTE | 2022-10-13 11:27 | Discharge Summary ---
Date of Service October 13, 2022 Admission HPI Per Admitting Provider Mikala is a 56-year-old female with a past medical history of hypertension, prior cath eval 10 years ago, Mikala reports 1 week ago on (9 days ago) she was working as an DATE [employer] and started to get a sinus headache and congestion. PCR negative for COVID. Was given tessalon perles and pseudophed. [place] like she developed a chest fcold over the next few days and was given doxy 100mg BID and pred 20mg BID which she has taken now for a total of 5 days (took morning dose today). Has increased shortness of breath just walking across the room. No chest pain, but does endorse a tight squeezing across her chest which feels similar to past episodes of bronchitis. Stress test 10 years ago was normal. No stress test since then. HTN. No hx DM or preDM. No CVA. MGM with MIs starting in 50s without tobacco use. Mother with Afib at age 77. Vapes daily 4-5x per day. Nicotine vape. Takes valsartan 320mg daily, chlorthalidone 12.5mg daily, carvedilol 25mg BID, eliquis 5 BID, doxycycline/pred as notedStopped nifedipine 2/2 orthostasis. No problems with leg swelling. No orthopnea. No fevers/chills last few days. Sx more in chest than sinuses. Denies sinus congestion. Medical History: Reviewed Medications: Reviewed Surgical History: Reviewed Allergies: Reviewed Social History: Daily vape use, social alcohol, denies tobacco Code Status: Full code Surrogate phone [phone]. Principal Diagnosis Parainfluenza virus COVID-19 Viral bronchitis, pneumonia Discharge Exam Constitutional WD/WN, vitals as above ENMT external ear and nose normal, oropharynx normal Neck trachea midline, no thyromegaly Respiratory normal respiratory effort Auscultation: + rhonchi; no diminished lung sounds, no crackles, no rales and no wheezes Cardiovascular RRR, no murmur, no edema Gastrointestinal (Abdomen) normal bowel sounds, soft, nontender, no hepatosplenomegaly Musculoskeletal no cyanosis or clubbing, extremities motor strength 5/5 Skin no rashes, warm and dry Neurologic moves all extremities and awake; not confused Psychiatric A+Ox3, euthymic affect Discharge Data Allergies Allergy/AdvReac Type Severity Reaction Status Date / Time Penicillins Allergy Mild Rash Verified 10/13/22 09:22 Consultations 10/12/22 15:23 ED Decision to Admit Stat Ordered Studies 10/12/22 16:23 CT chest without contrast [CT chest diagnostic wo con] Urgent IMPRESSION: 1. Multifocal groundglass airspace opacities seen throughout the lungs. This is consistent with an atypical/viral pneumonitis. 2. Mild diffuse bronchial wall thickening consistent with a bronchitis. 3. A few scattered subcentimeter indeterminate pulmonary nodules with the largest in the left lower lobe measuring 5 mm. Hospital Course (1) Shortness of breath: Mikala Lake is a 56 year old female observed at [facility] from October 12 - 2021 due to shortness of breath. She was diagnosed with viral bronchitis and pneumonia on CT chest. Biofire PCR was positive for GIANNA-COV-2 and parainfluenza likely the cause of this. Her oxygen saturations were 94% at rest and on exertion therefore no specific treatment was recommended. Recommend she uses a pulse oximeter and if sustaining low oxygen levels below 94% she should discuss dexamethasone with her primary care provider. She was advised to return to the ER is sustaining oxygen saturations < 88% over a 2 minute period. Given symptoms > 5 days Paxlovid was not prescribed. She was advised to isolate per her work and CDC guidelines: https://www.cdc.gov/coronavirus/2019-ncov/your-health/isolation.html. Procalcitonin was negative and CT chest not suggestive of bacterial pneumonia therefore antibiotics were discontinued. Her EKG did show T wave inversions in anterolateral leads however serial troponin enzymes were negative and echocardiogram showed no wall motion abnormalities with moderate concentric left ventricular hypertrophy suspect secondary to her hypertension. CT chest incidentally picked up a few scattered pulmonary nodules. Consider follow up CT chest per Fleischner's criteria: Multiple nodules size: <6 mm * Low risk patients: no routine follow-up * high risk patients: optional CT at 12 months She was advised to stop vaping. (2) Hypokalemia: (3) Hypertension: (4) Morbid obesity with BMI of 40.0-44.9, adult: (5) Chest pain: Total Time Total Time Spent Total Time Spent (In Minutes): 40 Discharge Plan Discharge Items Patient Disposition: Home - Self-Care Reason For Visit: SOB, ekg changes Discharge Diagnosis: Parainfluenza virus COVID-19 Viral bronchitis, pneumonia Activity: Resume your previous activity Non-emergency contact: Primary Care Provider Call non-emergency contact if: you have any medication questions and your symptoms worsen Follow-up/Referrals: Carlos Allen [Primary Care Provider] - Diet: Regular Addtl Attending Provider Instructions: You were observed at [facility] from October 12 - 2021 due to shortness of breath. You were diagnosed with viral bronchitis and pneumonia on CT chest. Biofire PCR was positive for GIANNA-COV-2 and parainfluenza likely the cause of this. You oxygen saturations were 94% at rest and on exertion therefore no treatment steroids were not prescribed. Recommend a pulse oximeter and if sustaining low oxygen levels below 94% please discuss a further course of steroids with your primary care provider. If you are sustaining oxygen saturations < 88% over a 2 minute period please return to the ER. Given symptoms > 5 days Paxlovid was not prescribed. Please isolate per your work and CDC guidelines: https://www.cdc.gov/coronavirus/2019-ncov/your-health/isolation.html. Procalcitonin was negative and CT chest not suggestive of bacterial pneumonia therefore antibiotics were discontinued; if you start having fever and chills please discuss antibiotics with your primary care provider. Main treatment for this is rest, hydration and time. Consider symptomatic treatment for your illness with guaifenesin (expectorant) and dextromethorphan (cough suppressant) as needed. Avoid Sudafed due to your high blood pressure. There was some concern regarding your EKG therefore serial troponin enzymes were taken and negative ruling out a heart attack. Echocardiogram showed moderate concentric left ventricular hypertrophy suspect secondary to your hypertension. It was otherwise unremarkable. Kind regards, Dr Vikram Castillo Pending Studies at Discharge: No Stand-Alone Forms: My [facility], Smoking Cessation Medications and DC Order Prescriptions: Continued Eliquis 5 mg Tablet 5 mg PO BID 30 Days Qty: 60 3RF chlorthalidone 25 mg Tablet 12.5 mg PO QAM carvedilol 12.5 mg tablet 25 mg PO BID valsartan 160 mg tablet 320 mg PO DAILY benzonatate 100 mg capsule 100 mg PO TID PRN (Reason: Cough) Discontinued doxycycline hyclate 100 mg capsule 100 mg PO DAILY PRN (Reason: Prophylaxis) prednisone 20 mg tablet 20 mg PO BID PRN (Reason: Prophylaxis) Discharge Orders: Discharge Order (Routine); Ordered 10/13/22 Ordered By: Vikram Castillo Admission Data Admit Date/Time: 10/12/22 16:06 Attending Provider: Vikram Castillo Admit Provider: Iker Durant Primary Care Provider: Carlos Allen Other Providers: Iker Durant Other Interventions: Discharge Summary Assessment (RN) Last Done: 10/13/22 11:47 Coding Level of Care Code 84144 OBS Care - Discharge Diagnoses Shortness of breath R06.02 Hypokalemia E87.6 Hypertension I10 Morbid obesity with BMI of 40.0-44.9, adult E66.01; Z68.41 Chest pain R07.9
--- NOTE | 2022-10-16 09:04 | Coding Query ---
CODING CLARIFICATION Please provide further clarification below for accurate coding assignments: VIRAL BRONCHITIS: ( ) Due to covid ( ) Due to parainfluenza ( X) Due to covid and parainfluenza ( ) Unknown ( ) Other, please clarify: PNEUMONIA: ( ) Due to covid ( ) Due to parainfluenza ( X) Due to covid and parainfluenza ( ) Unknown ( ) Other, please clarify: Thank you for your assistance, Marta Garcia - Mds Rn [facility] SYSTEM[facility]
== END 2022-10-13 12:10 | disposition home or self-care (01) ==
LOC: ED 11:35 → 2N 11:35 → SUATTDRO 16:06 → 2N 18:20

== ENCOUNTER 2025-01-07 05:39 | Observation (INO) ==
[2025-01-07] MEDS: SODIUM CHLORIDE 0.9% 1,000 ML IV ONE (05:53)
[2025-01-07] MEDS: dilTIAZem HCl 5 MG/ML 5 ML VIAL IV STA (05:53)
--- NOTE | 2025-01-07 05:54 | Emergency Department Note ---
Impression & Plan Chest pain Admission ED Provider Note HPI: History obtained from patient and EMS report. The patient is a 59-year-old female with history of atrial fibrillation, currently on Eliquis, who presents emergency department chief complaint of chest pain. Patient states that the pain is substernal in nature and woke her from sleep at about 4:30 AM. Patient states that she then developed a sensation of a racing heartbeat, at that point she contacted EMS. On arrival here to the ED the patient is tachycardic and appears to be in atrial fibrillation with RVR on the monitor, she is otherwise hemodynamically stable. Patient was given a Cardizem bolus in the field by EMS and did have some conversion to a normal rate into the 80s but then again went into RVR. Patient is saturating well on room air on arrival, she does state that her chest pain was resolved and is just starting to come back during my interview. ROS: - Per HPI Differential Diagnosis: Arrhythmia to include SVT, atrial fibrillation with RVR, ventricular tachycardia, acute coronary syndrome, amongst other potential pathologies. *Outpatient medications and allergy history reviewed. PE: General: Alert HEENT: Normocephalic, trachea midline Eyes: Extraocular eye movement is intact, no scleral erythema Pulmonary: Clear to auscultation bilaterally, no wheezing Cardio: Tachycardic rate with an irregular rhythm GI: Abdomen is soft to palpation : No suprapubic tenderness MSK: No evidence of trauma or malformation of the extremities, no edema Skin: No evidence of rash Neuro: Alert, no focal deficits Psychiatric: Cooperative INDEPENDENT INTERPRETATIONS: language asst: (As interpreted by myself): - An order was placed for continuous cardiac monitoring - Patient was noted to be in atrial fibrillation with a rate of 156 EKG: (As interpreted by myself): Rate: 146 Rhythm: Atrial fibrillation with RVR Intervals: QTc 504 ms, otherwise within normal limits ST changes: No ST elevation Time: 0545 Chest x-ray: (As interpreted by myself): No acute disease Interventions provided in ED: -IV diltiazem bolus, IV diltiazem drip, IV metoprolol, aspirin Medical Decision Making: IV was established and lab work obtained, patient was placed on microwave remote sensing scientist. Patient appears to be in atrial fibrillation on the monitor, EKG was obtained and per my interpretation shows atrial fibrillation with a rate of 146. No acute ischemic changes are noted. Lab work shows no leukocytosis, hemoglobin is normal, platelet count is normal, CMP does not show any critical findings, magnesium is normal, potassium slightly low at 3.1 which will be ordered for IV repletion. Troponin is elevated at 33.5. Following IV diltiazem and IV metoprolol here in the ED the patient's heart rate did improve but she remains tachycardic in the 120s. Given this in addition to her elevated troponin and complaint of chest pain earlier in the morning, patient will be placed for admission to the hospitalist service. Patient was in agreement to this plan, on my reassessment her heart rate is improved and she states her chest pain is improved. Patient's presentation was discussed with the on-call hospitalist, Dr. Wiseman, and the patient was placed for admission in stable condition. Consultants/Discussions held with other healthcare providers: -Hospitalist, Dr. Wiseman Disposition discussion held by myself with: -Patient * CRITICAL CARE TIME: ( 44 ) minutes -Stabilization of tachyarrhythmia/atrial fibrillation with RVR requiring IV rate control medications for improvement, time spent at the bedside, interpretation of EKG and other diagnostic studies, discussion with other physicians and arrangement of admission. Diagnosis: 1. Atrial fibrillation with RVR, acute 2. Chest pain, acute 3. Elevated troponin, acute Disposition: Admission Fuad Freeman DO Emergency Medicine Past Med/Surg History Problem List (Updated 01/07/25 @ 07:14 by Fuad Freeman DO) Hypokalemia (Acute) Acute electrocardiogram changes (Acute) Dyspnea (Acute) Shortness of breath Elevated troponin Morbid obesity with BMI of 40.0-44.9, adult Left-sided chest pain (Acute) Chest pain (Acute) Hypokalemia Hypertension Fracture of right distal radius Encounter for pre-operative examination Medical History Atrial fibrillation with rapid ventricular response Atrial fibrillation with RVR Chest pain Encounter for smoking cessation counseling Heart burn Hypertension Obesity Surgical History H/O laparoscopy X 2 History of appendectomy History of cardiac cath [facility] (NO STENTS) History of dilatation and curettage History of tooth extraction Hx of hysterectomy Family History Grandmother (Maternal) Family history of diabetes mellitus Social History Smoking Status: Current some day smoker Tobacco Type: E-cigarettes / Vaping Cigarettes Per Day: 27-37 mg of nicotene/day; Second Hand Exposure: No; Do You Dip or Chew Tobacco: No; Hx Alcohol Use: Yes Alcohol type: wine Hx Substance Use: No Preferred Language: Thai Communication Ability: Effective Charcoal Unloader Required: No Beliefs That Will Affect Care: None Current Living Situation: Other Current Living Situation Comment: pt lives at home with fiance Feels Safe at Home: Yes Assistive Devices: None Allergies Allergies Allergy/AdvReac Type Severity Reaction Status Date / Time Penicillins Allergy Mild Rash Verified 10/13/22 09:22 Home Meds Home Medications Medication Instructions Recorded Confirmed carvedilol 12.5 mg tablet 12.5 mg PO BID 01/31/22 11/20/24 chlorthalidone 25 mg tablet 12.5 mg PO QAM 01/31/22 11/20/24 valsartan 320 mg tablet 320 mg PO DAILY 11/20/24 11/20/24 Previous Rx's Medication Instructions Recorded apixaban 5 mg tablet (Eliquis) 5 mg PO BID 30 days #60 tabs 08/14/20 Results & Data (ED) Vital Signs Vital Signs - 24 hr 01/07/25 05:46 01/07/25 05:46 01/07/25 05:49 Temperature 36.8 C Temperature Source Oral Pulse Rate 158 H 127 H Pulse Rate [Apical] Pulse Rate from SpO2 Sensor Respiratory Rate 18 Respiratory Effort / Characteristics Non-Labored Spontaneous Respiratory Depth Normal Respiratory Pattern Regular Blood Pressure 147/111 H Blood Pressure [Left Arm] Blood Pressure Mean 123 Blood Pressure Mean [Left Arm] Blood Pressure Position Semi-fowlers Pulse Oximetry 96 96 Oxygen Delivery Method Room Air Room Air Sepsis Recent Fever Within 48 Hours No Sepsis New/Unexplained Change in Mental Status N/A Sepsis Action Taken by Nursing No Action Required 01/07/25 05:52 01/07/25 06:03 01/07/25 06:32 Temperature Temperature Source Pulse Rate 154 H 151 H 148 H Pulse Rate [Apical] Pulse Rate from SpO2 Sensor 152 H Respiratory Rate 18 16 Respiratory Effort / Characteristics Respiratory Depth Respiratory Pattern Blood Pressure 147/111 H 161/115 H 156/127 H Blood Pressure [Left Arm] Blood Pressure Mean 123 130 Blood Pressure Mean [Left Arm] Blood Pressure Position Pulse Oximetry 98 95 Oxygen Delivery Method Room Air Room Air Sepsis Recent Fever Within 48 Hours Sepsis New/Unexplained Change in Mental Status Sepsis Action Taken by Nursing 01/07/25 06:51 01/07/25 06:54 01/07/25 06:55 Temperature Temperature Source Pulse Rate 108 H 108 H Pulse Rate [Apical] 107 H Pulse Rate from SpO2 Sensor 97 H Respiratory Rate 16 20 Respiratory Effort / Characteristics Non-Labored Spontaneous Respiratory Depth Normal Respiratory Pattern Regular Blood Pressure 132/97 Blood Pressure [Left Arm] 132/97 Blood Pressure Mean Blood Pressure Mean [Left Arm] 108 Blood Pressure Position Pulse Oximetry 92 94 Oxygen Delivery Method Room Air Sepsis Recent Fever Within 48 Hours Sepsis New/Unexplained Change in Mental Status Sepsis Action Taken by Nursing Laboratory Data 01/07/25 05:55 01/07/25 05:55 Lab Results 01/07/25 Range/Units 05:55 WBC 8.31 (4.8-10.8) K/ul RBC 5.29 (4.20-5.40) M/uL Hgb 15.4 (12.0-16.0) g/dl Hct 46.9 (37.0-47.0) % MCV 88.7 (80.0-100.0) fL MCH 29.1 (25.0-34.0) pg MCHC 32.8 (32.0-36.0) g/dL RDW Std Deviation 43.8 (36.4-46.3) fL RDW Coeff of Lucia 13.5 (11.5-14.5) % Plt Count 171 (130-400) K/uL MPV 13.0 H (9.4-12.4) fL Immature Gran % (Auto) 0.2 % Neut % (Auto) 64.1 % Lymph % (Auto) 24.2 % [place] % (Auto) 8.8 % Eos % (Auto) 2.2 % Baso % (Auto) 0.5 % Neut # (Auto) 5.33 (1.40-6.50) K/uL Lymph # (Auto) 2.01 (1.20-3.40) K/uL [place] # (Auto) 0.73 H (0.11-0.59) K/uL Eos # (Auto) 0.18 (0.00-0.50) K/uL Baso # (Auto) 0.04 (0.00-0.20) K/uL Immature Gran # (Auto) 0.02 (0.01-0.20) K/uL Sodium 144 (136-145) mmol/L Potassium 3.1 L (3.5-5.1) mmol/L Chloride 107 (98-107) mmol/L Carbon Dioxide 28 (21-32) mmol/L Anion Gap 9 (3-11) BUN 22 (6-23) mg/dl Creatinine 0.71 (0.6-1.2) mg/dl Est Cr Clr Drug Dosing 89.0 ml/min eGFR 99.11 BUN/Creatinine Ratio 31.0 H (10-20) Glucose 85 (70-99(Fasting)) mg/dl Calcium 9.6 (8.6-10.3) mg/dl Magnesium 2.0 (1.7-2.4) mg/dl Total Bilirubin 0.7 (0.2-1.0) mg/dl AST 12 L (13-39) U/L ALT 10 (7-52) U/L Alkaline Phosphatase 124 H (34-104) U/L Troponin I High Sens 33.5 H (0-14) pg/ml Total Protein 7.4 (6.0-8.3) gm/dl Albumin 4.5 (3.4-5.0) gm/dl Globulin 2.9 (2.5-4.0) gm/dl Albumin/Globulin Ratio 1.6 (0.9-2) Lipase 28 (11-82) U/L TSH 2.603 (0.300-4.500) uIu/ml Administered Medications Diltiazem HCl 125 mg/ Dextrose 125 mls @ 5 mls/hr IV .Q24H PENDING SALE TO [facility]; Protocol Stop: 02/06/25 05:59 Last Titration: 01/07/25 07:12 Dose: 10 mg/hr, 10 mls/hr Documented By: CHARLOTTE Co-signed By: SHIRLEY Admin: 01/07/25 06:10 Dose: 5 mg/hr, 5 mls/hr Documented By: THELMA Co-signed By: JH Discontinued Medications Aspirin (Aspirin Chew 324 Mg) 324 mg PO NOW STA Stop: 01/07/25 07:05 Last Admin: 01/07/25 07:13 Dose: Not Given Documented By: CHARLOTTE Diltiazem HCl (Diltiazem Hcl 5 Mg/Ml 5 Ml Vial) 10 mg IV NOW STA Stop: 01/07/25 05:48 Last Admin: 01/07/25 05:53 Dose: 10 mg Documented By: NAVEED Co-signed By: THELMA Sodium Chloride (Nss) 1,000 mls @ 999 mls/hr IV .Q1H1M ONE Stop: 01/07/25 06:47 Last Infusion: 01/07/25 06:56 Dose: Infused Documented By: Admin: 01/07/25 05:53 Dose: 999 mls/hr Documented By: NAVEED Metoprolol Tartrate (Metoprolol Tartrate 1 Mg/Ml Vial) 5 mg IV NOW STA Stop: 01/07/25 06:05 Last Admin: 01/07/25 06:32 Dose: 5 mg Documented By: THELMA Miscellaneous (Stat Iv Infusion Titration Per Protocol) 1 each N/A NOW STA Stop: 01/07/25 05:48 Last Admin: 01/07/25 06:04 Dose: Not Given Documented By: THELMA Discharge Plan Visit Data Chief Complaint: Chest Pain Stated Complaint: Chest Pain ED Provider: Fuad Freeman Discharge Problem: Chest pain Forms Stand Alone Forms: [facility] Prescriptions Prescriptions: No Action Eliquis 5 mg Tablet 5 mg PO BID 30 Days Qty: 60 3RF chlorthalidone 25 mg Tablet 12.5 mg PO QAM carvedilol 12.5 mg tablet 12.5 mg PO BID valsartan 320 mg tablet 320 mg PO DAILY Referrals Referrals: Carlos Allen [Primary Care Provider] -
[2025-01-07 05:56] VITALS: TEMP 98.2
[2025-01-07] MEDS: STAT IV Infusion **Titration per Protocol STA (06:04)
[2025-01-07] MEDS: dilTIAZem HCL 125 MG in DEXTROSE 5% 100 ML IV SCH (06:10)
[2025-01-07 06:26] LABS: Basophils # (auto) 0.04 K/uL (0.00-0.20); Basophils % (auto) 0.5 %; Eosinophils # (auto) 0.18 K/uL (0.00-0.50); Eosinophils % (auto) 2.2 %; Hematocrit (blood only) 46.9 % (37.0-47.0); Hemoglobin 15.4 g/dl (12.0-16.0); Immature Granulocytes # (auto) 0.02 K/uL (0.01-0.20); Immature Granulocytes % (auto) 0.2 %; Lymphocytes # (auto) 2.01 K/uL (1.20-3.40); Lymphocytes % (auto) 24.2 %; Mean Corpuscular Hemoglobin 29.1 pg (25.0-34.0); Mean Corpuscular Hgb Conc 32.8 g/dL (32.0-36.0); Mean Corpuscular Volume 88.7 fL (80.0-100.0); Monocytes # (auto) 0.73 K/uL (0.11-0.59); Monocytes % (auto) 8.8 %; Neutrophils # (auto) 5.33 K/uL (1.40-6.50); Neutrophils % (auto) 64.1 %; Platelet Count 171 K/uL (130-400); RDW Coefficient of Variation 13.5 % (11.5-14.5); RDW Standard Deviation 43.8 fL (36.4-46.3); Red Blood Count 5.29 M/uL (4.20-5.40); White Blood Count 8.31 K/ul (4.8-10.8)
[2025-01-07] MEDS: METOPROLOL TARTRATE 1 MG/ML VIAL IV STA ×2 (06:32→07:42)
[2025-01-07 06:39] LABS: Albumin Globulin Ratio 1.6 (0.9-2); Albumin Level 4.5 gm/dl (3.4-5.0); Bilirubin,Total 0.7 mg/dl (0.2-1.0); Calcium 9.6 mg/dl (8.6-10.3); Globulin 2.9 gm/dl (2.5-4.0); Potassium 3.1 mmol/L (3.5-5.1); Total Protein 7.4 gm/dl (6.0-8.3)
[2025-01-07 06:46] LABS: Troponin I High Sensitivity 33.5 pg/ml (0-14)
[2025-01-07 06:55] LABS: Thyroid Stimulating Hormone 2.603 uIu/ml (0.300-4.500)
[2025-01-07] MEDS: ASPIRIN CHEW 324 MG PO STA (07:13)
[2025-01-07] MEDS ORDERED: Heparin IV Adult Wt-Based Low-Dose *NO* INITIAL Bolus Protocol IV STA (07:34)
--- NOTE | 2025-01-07 08:07 | XRay Report ---
EXAM: XR chest 1V portable CLINICAL HISTORY: Chest pain, nonspecific TECHNIQUE: An X-ray image of the chest is obtained in AP projection. COMPARISON: 10/12/2022 x ray FINDINGS: Lung volumes are normal. Lungs are clear. There is no pneumothorax or pleural effusion. Mild cardiomegaly is noted. Subtle interstitial thickening is unchanged. Mediastinal contours are normal. There is no evidence for pulmonary edema. IMPRESSION: No acute cardiopulmonary findings. Mild enlarged cardiac size No consolidations or effusion Stable mild interstitial thickening, likely chronic. Electronically signed by Lul Rosario 01-07-2025 08:07 AM
[2025-01-07] MEDS: HEPARIN 25000 UNIT/500 ML D5W 25,000 UNITS/500 ML BAG IV SCH (08:27)
[2025-01-07 08:34] LABS: D Dimer 200 ug/L FEU (0-500)
[2025-01-07 08:38] LABS: Adenovirus PCR Not Detected (NotDetected); Bordetella parapertussis PCR Not Detected (NotDetected); Bordetella pertussis PCR Not Detected (NotDetected); Chlamydia pneumoniae PCR Not Detected (NotDetected); Coronavirus 229E PCR Not Detected (NotDetected); Coronavirus CoV-2 (COVID19)PCR Not Detected (NotDetected); Coronavirus HKU1 PCR Not Detected (NotDetected); Coronavirus NL63 PCR Not Detected (NotDetected); Coronavirus OC43PCR Not Detected (NotDetected); Human Metapneumovirus PCR Not Detected (NotDetected); Influenza A PCR Not Detected (NotDetected); Influenza B PCR Not Detected (NotDetected); Mycoplasma pneumoniae PCR Not Detected (NotDetected); Parainfluenza Virus 1 PCR Not Detected (NotDetected); Parainfluenza Virus 2 PCR Not Detected (NotDetected); Parainfluenza Virus 3 PCR Not Detected (NotDetected); Parainfluenza Virus 4 PCR Not Detected (NotDetected); Respiratory Syncytial VirusPCR Not Detected (NotDetected); Rhinovirus/Enterovirus PCR Not Detected (NotDetected)
--- NOTE | 2025-01-07 08:58 | Electrocardiogram Report ---
Test Reason : Blood Pressure : */* mmHG Vent. Rate : 146 BPM Atrial Rate : * BPM P-R Int : * ms QRS Dur : 86 ms QT Int : 324 ms P-R-T Axes : * 2 106 degrees QTcB Int : 504 ms Atrial fibrillation with rapid ventricular response ST depression in inferolateral leads , consider ischemia Abnormal ECG When compared with ECG of 12-Oct-2022 13:00, Atrial fibrillation has replaced Sinus rhythm Vent. rate has increased by [address] now depressed in Inferior leads ST now depressed in Lateral leads Confirmed by Eduardo Montes ([id number]) on 01/07/2025 8:58:07 AM Referred By: Confirmed By: Eduardo Montes
[2025-01-07] MEDS ORDERED: HEPARIN INFUSION STOP ORDER ONE (09:00)
[2025-01-07] MEDS ORDERED: VALSARTAN 80 MG TAB PO SCH (09:00)
--- NOTE | 2025-01-07 09:07 | History & Physical Report ---
Date of Service January 07, 2025 Assessment & Plan (1) Atrial fibrillation with rapid ventricular response: Plan: Acute/stable - Admit to PCU - Cardiac diet ordered - Continue diltiazem gtt and titrate per protocol for rate control - Update echocardiogram - Replace potassium in setting of hypokalemia as noted below, goal K+ >4.0 and Mag >2.0 - TSH obtained and WNL - Consult [facility] cardiology, appreciate recommendations - Patient would likely benefit from cardioversion given how symptomatic she is when in afib - Heparin gtt initiated, but d/c'd by cardiology and resumed Eliquis 5mg BID - Coreg 25mg BID is her usual dose, in light of dilt gtt, resumed reduced dose of 12.5mg BID - First HS trop 33, chest pain resolved, trend HS trop, repeat is pending - CXR obtained, no evidence of concurrent CHF exacerbation (2) Hypokalemia: Plan: Acute - No recent viral GI illnesses or reporting n/v/d - Takes chlorthalidone w/o potassium supplementation, but is also on valsartan - Replete with potassium chloride 40 meq PO x1 followed by a second dose of KCl 40 meq po x1 at 1500 - Repeat CMP in AM (3) Acute electrocardiogram changes: Plan: Acute - EKG with inferolateral ST depression - HS trop 33 as above and is being trended - Given asa 324mg po x1 - CP has resolved and seems atypical for ACS - PS cardiology consulted, appreciate assistance - Add lipid panel in AM (4) Hypertension: Plan: Chronic/stable - Continue valsartan and chlorthalidone - Continue coreg at reduced dose as noted above, currently on dilt gtt - monitor BP per diltiazem gtt protocol Plan Chronic medical problems Tobacco dependence - counseled on importance of cessation Above plan of care has been d/w Dr. Wiseman who will also see and evaluate this patient. Further orders will be implemented as warranted by attending. Admission and Anticipated Discharge Date Admission Date: January 07, 2025 History of Present Illness Chief Complaint: Chest pain Primary Care Provider: Carlos Bach is a 59 yo F with a pmhx of HTN, Afib s/p cardioversion and ablation who presents to the ER today c/o abrupt onset chest pain that woke her from sleep around 0415 this AM. Pt reports that she has a h/o paroxysmal afib x 6 years. She underwent cardioversion 3 years ago followed by an ablation in May 2022 in [place]. She has no prior h/o CAD/[place]. Her symptoms began this AM with sharp midsternal chest pain that did not radiate, had no alleviating or aggravating factors, was not associated with diaphoresis, nausea, or lightheadedness. She does endorse palpitations. Her breathing was "short" due to the pain, but breathing did not exacerbate or worsen the pain. She notes this is the same pain she experienced before with rapid afib episodes. She has not had any episodes of afib since her ablation in May 2022. She is currently following with Cardiology group. She is managed with Coreg 25mg BID and Eliquis 5mg BID. She notes compliance with her medications and denies any missed doses. She does vape for the past 5 yrs, prior to that she smoked 1 ppd x 20 yrs. 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 She denies any recent viral illness including URIs or gastroenteritis w/ n/v/d. Last echo in Oct 2022 with a hyperdynamic LV, LVEF >70%, moderate concentric LVH and mild MR, normal RVSP. Her w/u in the ER is notable for afib w/ rvr at [address] depression in the inferolateral leads. Her potassium is low at 3.1. She has been medicated in the ER with a dose of lopressor 5mg IV x2 and then was given a bolus of diltiazem 10mg IV and started on gtt. She was also treated with a dose of ASA 324mg x1. She is reports feeling more comfortable as her heart rate is now in the 100-110s, she denies pain at present, but remains in afib. She has been referred for hospital admission for further care. Allergies Allergy/AdvReac Type Severity Reaction Status Date / Time Penicillins Allergy Mild Rash Verified 01/07/25 09:16 Home Medications Medication Instructions Recorded Confirmed Type chlorthalidone 25 mg tablet 12.5 mg PO QAM 01/31/22 01/07/25 History valsartan 320 mg tablet 0 mg PO DAILY 11/20/24 01/07/25 History apixaban 5 mg tablet (Eliquis) 0 mg PO BID 01/07/25 01/07/25 History carvedilol 12.5 mg tablet 25 mg (2 x 12.5 mg) PO BID #0 tabs 01/07/25 01/07/25 Rx potassium chloride 10 mEq 10 meq PO DAILY #30 tabs 01/07/25 Rx tablet,extended release Past Med/Surg History Problem List (Updated 01/07/25 @ 10:31 by Nael Moyer DO) Atrial fibrillation with rapid ventricular response (Acute) Hypokalemia (Acute) Acute electrocardiogram changes (Acute) Dyspnea (Acute) Shortness of breath Elevated troponin Morbid obesity with BMI of 40.0-44.9, adult Left-sided chest pain (Acute) Chest pain (Acute) Hypokalemia Hypertension Fracture of right distal radius Encounter for pre-operative examination Medical History Atrial fibrillation with rapid ventricular response Encounter for smoking cessation counseling Chest pain Atrial fibrillation with RVR Obesity Heart burn Surgical History History of dilatation and curettage H/O laparoscopy X 2 Hx of hysterectomy History of appendectomy History of tooth extraction History of cardiac cath [facility] 2014 (NO STENTS) Family History Grandmother (Maternal) Family history of diabetes mellitus Social History Smoking Status: Current some day smoker Tobacco Type: E-cigarettes / Vaping Cigarettes Per Day: 27-37 mg of nicotene/day; Second Hand Exposure: No; Do You Dip or Chew Tobacco: No; Hx Alcohol Use: Yes Alcohol type: wine Hx Substance Use: No Preferred Language: Estonian Communication Ability: Effective 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 Denies fever, chills, fatigue, headache, nasal congestion, sore throat, cough, shortness of breath, orthopnea, PND, abdominal pain, n/v/d, constipation, dysuria, hematuria, frequency, back pain, joint pain or swelling, easy bruising or bleeding, skin lesions or rashes. Physical Exam 2 Physical Exam: GENERAL: 59 yo obese middle aged WF. Awake, alert, oriented x4. No distress. EYES: EOMI. PERRLA. Anicteric. HENT: Moist mucous membranes. No scleral icterus. No cervical lymphadenopathy. LUNGS: Clear to auscultation bilaterally. No accessory muscle use. No W/R/R. CARDIOVASCULAR: Irregular rate and rhythm w/o m/g/r. ABDOMEN: Soft, non-tender and non-distended. No palpable masses. Bowel sounds normoactive x 4 quad. EXTREMITIES: No edema. Non-tender. Peripheral pulses +2/4. NEUROLOGIC: No focal neurological deficits. CN II-XII grossly intact. PSYCHIATRIC: Cooperative. Appropriate mood and affect. SKIN: Warm, dry, intact. No rashes or lesions. Results & Data Results & Data Vital Signs (Past 12 Hours) Vital Signs Temp Pulse Pulse Resp BP BP Pulse Ox 01/07/25 08:45 108 H 24 01/07/25 08:33 103 H 21 94 01/07/25 08:30 119/89 01/07/25 08:30 119/89 01/07/25 08:24 117 H 17 94 01/07/25 08:06 99 H 15 94 01/07/25 08:02 99 H 113/87 01/07/25 08:00 113/87 01/07/25 07:54 104 H 16 92 01/07/25 07:42 132 H 120/88 01/07/25 07:32 20 120/88 01/07/25 07:32 143 H 20 93 01/07/25 07:30 120/88 01/07/25 07:24 117 H 16 94 01/07/25 07:21 121 H 16 92 01/07/25 07:15 126 H 16 93 01/07/25 06:55 108 H 132/97 01/07/25 06:54 107 H 20 132/97 94 01/07/25 06:53 132/97 01/07/25 06:51 108 H 16 92 01/07/25 06:32 148 H 156/127 H 01/07/25 06:03 151 H 16 161/115 H 95 01/07/25 05:52 154 H 18 147/111 H 98 01/07/25 05:49 127 H 01/07/25 05:46 96 01/07/25 05:46 36.8 C 158 H 18 147/111 H 96 O2 Del Method 01/07/25 08:45 01/07/25 08:33 01/07/25 08:30 01/07/25 08:30 01/07/25 08:24 01/07/25 08:06 01/07/25 08:02 01/07/25 08:00 01/07/25 07:54 01/07/25 07:42 01/07/25 07:32 01/07/25 07:32 Room Air 01/07/25 07:30 01/07/25 07:24 01/07/25 07:21 01/07/25 07:15 01/07/25 06:55 01/07/25 06:54 Room Air 01/07/25 06:53 01/07/25 06:51 01/07/25 06:32 01/07/25 06:03 Room Air 01/07/25 05:52 Room Air 01/07/25 05:49 01/07/25 05:46 Room Air 01/07/25 05:46 Room Air Laboratory Results 01/07/25 05:55 01/07/25 05:55 Diagnostic Findings Chest X-Ray 01/07/25 05:46 EXAM: XR chest 1V portable CLINICAL HISTORY: Chest pain, nonspecific TECHNIQUE: An X-ray image of the chest is obtained in AP projection. COMPARISON: 10/12/2022 x ray FINDINGS: Lung volumes are normal. Lungs are clear. There is no pneumothorax or pleural effusion. Mild cardiomegaly is noted. Subtle interstitial thickening is unchanged. Mediastinal contours are normal. There is no evidence for pulmonary edema. IMPRESSION: No acute cardiopulmonary findings. Mild enlarged cardiac size No consolidations or effusion Stable mild interstitial thickening, likely chronic. Electronically signed by Lul Rosario 01-07-2025 08:07 AM ECG Additional Comments: EKG = afib w/ rvr, rate 146 bpm, ST depression inferolateral leads Code Status & VTE Plan Code Status Full code - d/w patient, also present PG Care Time/CCT Total # of Minutes Spent Total Time Spent with Patient: Total time spent is greater than 50% in coordination of care (as documented) at patient's floor/unit and/or counseling patient: 77 minutes Coding Level of Care Code None Diagnoses Atrial fibrillation with rapid ventricular response I48.91 Hypokalemia E87.6 Acute electrocardiogram changes R94.31 Primary hypertension I10 Hypertension type: primary hypertension (4) Hypertension Hypertension type: primary hypertension Qualified Code(s): I10 - Essential (primary) hypertension
[2025-01-07 09:15] LABS: Partial Thromboplastin Ratio 1.1; Partial Thromboplastin Time 29 Seconds (21-31); Prothrombin Time 10.5 Seconds (9.0-12.0)
--- NOTE | 2025-01-07 09:15 | Cardiology Consultation ---
<Statement entered by Elio Lama, DO - 01/07/25 12:47> Agree with Ms Tammy PARRISH assessment and plan. CV was planned in ED and successful. Troponin secondary to microvascular ischemia from severe LVH and mid cavitary gradient. Needs outpatient w/u for infiltrative CM and ATTR. No active CP now that in NSR. Date of Consultation January 07, 2025 Assessment & Plan (1) Atrial fibrillation with rapid ventricular response: (2) Hypokalemia: (3) Elevated troponin: Plan Ms. Lake is comfortable except for the sensation of fluttering in her chest at this point. Her troponin elevation was minimal. Her case was discussed with Dr. Lama who recommends cardioversion today. She did have some missed doses of her anticoagulation throughout the last month however she is very symptomatic with her A-fib and has not felt any other episodes of A-fib beyond starting at 4 AM today. Given that she is less than 24 hours out from the start of her A-fib episode, her risk for stroke with cardioversion is low despite having some missed doses of her anticoagulation and so Dr. Lama is comfortable with going ahead with cardioversion. I did discuss the risks and benefits with her. Risks include hypotension, hypertension, arrhythmia, tachycardia, bradycardia, and stroke. She understands these risks and is agreeable to proceed. I discussed with emergency department attending who is agreeable to perform the cardioversion. Her heparin can be stopped when she gets her dose of Eliquis this morning. She will need to ensure that she does not miss further Eliquis doses especially within the next month after cardioversion as her risk for stroke will be higher. She can continue with her Coreg at its current dosing. Her potassium is low and should be replaced. She is on chlorthalidone and probably needs some potassium supplement routinely and I would recommend that she be discharged with 20 mill equivalents daily with a BMP on Friday to follow. If her cardioversion is successful, she can be discharged today. History of Present Illness Attending Physician: Srinivasan Wiseman History of Present Illness Ms. Lake presented to the emergency department this morning after feeling herself go into atrial fibrillation at 4 AM. As she has a history of an A-fib ablation in 2021 and had not experienced any A-fib up until being awoken at 4 AM this morning. She did have chest pain but since having her heart rate come down into the low 100s from 140s she has not had any further chest pain. Allergies Allergy/AdvReac Type Severity Reaction Status Date / Time Penicillins Allergy Mild Rash Verified 01/07/25 09:16 Home Medications Medication Instructions Recorded Confirmed Type carvedilol 12.5 mg tablet 0 mg PO BID 01/31/22 01/07/25 History chlorthalidone 25 mg tablet 12.5 mg PO QAM 01/31/22 01/07/25 History valsartan 320 mg tablet 0 mg PO DAILY 11/20/24 01/07/25 History apixaban 5 mg tablet (Eliquis) 0 mg PO BID 01/07/25 01/07/25 History Patient History Medical History Atrial fibrillation with rapid ventricular response Encounter for smoking cessation counseling Chest pain Atrial fibrillation with RVR Obesity Heart burn Surgical History History of dilatation and curettage H/O laparoscopy X 2 Hx of hysterectomy History of appendectomy History of tooth extraction History of cardiac cath [facility] 2014 (NO STENTS) Family History Grandmother (Maternal) Family history of diabetes mellitus Social History Smoking Status: Current some day smoker Tobacco Type: E-cigarettes / Vaping Cigarettes Per Day: 27-37 mg of nicotene/day; Second Hand Exposure: No; Do You Dip or Chew Tobacco: No; Hx Alcohol Use: Yes Alcohol type: wine Hx Substance Use: No Preferred Language: Belizean Communication Ability: Effective Care Giver Required: No Beliefs That Will Affect Care: None Current Living Situation: Other Current Living Situation Comment: pt lives at home with fiance Feels Safe at Home: Yes Assistive Devices: None Review of Systems Review of Systems: All systems reviewed & are unremarkable except as noted in HPI & below Physical Exam Constitutional: WD/WN, vitals as above Respiratory: normal respiratory effort, lungs clear to auscultation Cardiovascular: Rate/Rhythm: + abnormal rate and + abnormal rhythm Heart Sounds: normal S1 and normal S2 Extremities: no edema Results & Data Vital Signs (Past 12 Hours) Vital Signs Temp Pulse Pulse Resp BP BP Pulse Ox 01/07/25 08:45 108 H 24 01/07/25 08:33 103 H 21 94 01/07/25 08:30 119/89 01/07/25 08:30 119/89 01/07/25 08:24 117 H 17 94 01/07/25 08:06 99 H 15 94 01/07/25 08:02 99 H 113/87 01/07/25 08:00 113/87 01/07/25 07:54 104 H 16 92 01/07/25 07:42 132 H 120/88 01/07/25 07:32 20 120/88 01/07/25 07:32 143 H 20 93 01/07/25 07:30 120/88 01/07/25 07:24 117 H 16 94 01/07/25 07:21 121 H 16 92 01/07/25 07:15 126 H 16 93 01/07/25 06:55 108 H 132/97 01/07/25 06:54 107 H 20 132/97 94 01/07/25 06:53 132/97 01/07/25 06:51 108 H 16 92 01/07/25 06:32 148 H 156/127 H 01/07/25 06:03 151 H 16 161/115 H 95 01/07/25 05:52 154 H 18 147/111 H 98 01/07/25 05:49 127 H 01/07/25 05:46 96 01/07/25 05:46 36.8 C 158 H 18 147/111 H 96 O2 Del Method 01/07/25 08:45 01/07/25 08:33 01/07/25 08:30 01/07/25 08:30 01/07/25 08:24 01/07/25 08:06 01/07/25 08:02 01/07/25 08:00 01/07/25 07:54 01/07/25 07:42 01/07/25 07:32 01/07/25 07:32 Room Air 01/07/25 07:30 01/07/25 07:24 01/07/25 07:21 01/07/25 07:15 01/07/25 06:55 01/07/25 06:54 Room Air 01/07/25 06:53 01/07/25 06:51 01/07/25 06:32 01/07/25 06:03 Room Air 01/07/25 05:52 Room Air 01/07/25 05:49 01/07/25 05:46 Room Air 01/07/25 05:46 Room Air
--- NOTE | 2025-01-07 09:15 | Emergency Department Note ---
Pre Sedation Assessment Vital Signs Temp Pulse Pulse Resp BP BP Pulse Ox 01/07/25 07:24 117 H 16 94 01/07/25 07:21 121 H 16 92 01/07/25 07:15 126 H 16 93 01/07/25 06:55 108 H 132/97 01/07/25 06:54 107 H 20 132/97 94 01/07/25 06:53 132/97 01/07/25 06:51 108 H 16 92 01/07/25 06:32 148 H 156/127 H 01/07/25 06:03 151 H 16 161/115 H 95 01/07/25 05:52 154 H 18 147/111 H 98 01/07/25 05:49 127 H 01/07/25 05:46 96 01/07/25 05:46 36.8 C 158 H 18 147/111 H 96 O2 Del Method 01/07/25 07:24 01/07/25 07:21 01/07/25 07:15 01/07/25 06:55 01/07/25 06:54 Room Air 01/07/25 06:53 01/07/25 06:51 01/07/25 06:32 01/07/25 06:03 Room Air 01/07/25 05:52 Room Air 01/07/25 05:49 01/07/25 05:46 Room Air 01/07/25 05:46 Room Air Cardiovascular RRR, no murmur, no edema + tachycardic and + irregularly irregular + S1 normal and + S2 normal no JVD + capillary refill normal Respiratory normal respiratory effort, lungs clear to auscultation + respiratory effort normal; no respiratory distress and no retractions + clear to auscultation bilaterally Pre-Sedation Airway Assessment Smoking Status: Current some day smoker Hx Sleep Apnea: No Mallampati Class: I ASA: ASA2 NPO Status Date of Last Intake of Fluids: 01/06/25 Time of Last Intake of Fluids: 23:00 Date of Last Intake of Solid Food: 01/06/25 Time of Last Intake of Solid Foods: 23:00 Procedure Planning Contraindications for Sedation: none Current Medications Reviewed: Yes Notes The planned sedation has been discussed with the patient. Informed Consent was obtained. I have identified the patient, determined the appropriateness of sedation and have assessed the patient immediately prior to the procedure. All medicine(s) and interventions are by my order.
--- NOTE | 2025-01-07 09:15 | Emergency Department Note ---
ED Visit Note I was asked to evaluate the patient by Taylor Anguiano who was evaluating the patient from cardiology. The patient is a 59-year-old female who has a history of paroxysmal atrial fibrillation. She presented to the emergency department with atrial fibrillation. She was placed on Cardizem. She continued to be in atrial fibrillation. She was evaluated by cardiology this morning. The patient was felt to be a good candidate for cardioversion in the emergency department. She has been successfully cardioverted in the past. She does admit that she may have missed a dose of her Eliquis but she felt as though she went into this rhythm at 4:00 this morning. She knows she was not in atrial fibrillation yesterday. Cardiology did discuss the risks and benefits of cardioversion with the patient and she was agreeable. I will discussed the risks and benefits of sedation with the patient. If she is agreeable we will proceed with cardioversion. Indication: Atrial fibrillation with RVR Written consent was obtained after the risks and benefits were explained, including but not limited to pain, thermal burn, allergic reaction, aspiration, airway obstruction, laryngospasm, infection, hypotension, and cardiorespiratory arrest. At this time, the risks of the procedure are less than the risks of NOT performing the procedure. A time out was taken and the correct patient and procedure identified. The patient was on 100% via NRB and end tidal CO2 monitoring prior to the procedure. Suction, airway equipment, medications, respiratory equipment, ACLS cart, and appropriate personnel were prepared prior to the initiation of the procedure. Sedation was achieved utilizing etomidate. The biphasic defibrillator was set to 200 joules of energy and synched. After confirmation of sedation and "all clear" safety check the synchronized shock was delivered. This resulted in successful conversion of the dysrhythmia back into sinus rhythm. See nursing notes for dosages and times. There were no complications and the patient recovered uneventfully from the procedure. Post cardioversion EKG was reviewed by myself. My interpretation is normal sinus rhythm at 63 bpm. There is no ectopy. Nonspecific ST and T wave abnormalities were noted. This was compared to a tracing done this morning. Sinus rhythm has replaced atrial fibrillation with RVR. This was also compared to a tracing from October 12, 2022. No changes were noted. The patient was reevaluated multiple times. She was feeling much better. She was awake and alert. She had no more chest pain. The patient did have serial troponin measurements in the emergency department. Her troponin did continue to rise. I discussed the patient's laboratory and EKG results with the [facility] as well as the cardiology group that evaluated the patient. They will reevaluate the patient in the emergency department to determine further disposition at this time. .
--- NOTE | 2025-01-07 09:16 | Emergency Department Note ---
Post Sedation Assessment Vital Signs Temp Pulse Pulse Resp BP BP Pulse Ox 01/07/25 07:24 117 H 16 94 01/07/25 07:21 121 H 16 92 01/07/25 07:15 126 H 16 93 01/07/25 06:55 108 H 132/97 01/07/25 06:54 107 H 20 132/97 94 01/07/25 06:53 132/97 01/07/25 06:51 108 H 16 92 01/07/25 06:32 148 H 156/127 H 01/07/25 06:03 151 H 16 161/115 H 95 01/07/25 05:52 154 H 18 147/111 H 98 01/07/25 05:49 127 H 01/07/25 05:46 96 01/07/25 05:46 36.8 C 158 H 18 147/111 H 96 O2 Del Method 01/07/25 07:24 01/07/25 07:21 01/07/25 07:15 01/07/25 06:55 01/07/25 06:54 Room Air 01/07/25 06:53 01/07/25 06:51 01/07/25 06:32 01/07/25 06:03 Room Air 01/07/25 05:52 Room Air 01/07/25 05:49 01/07/25 05:46 Room Air 01/07/25 05:46 Room Air Recovery Score Activity: Moves 4 extremities Respiration: Deep Breath/Cough Consciousness: Fully Awake Oxygen Saturation: > 92% On Room Air Discharge Sedation Level of Care: Phase I Unexpected Event: None Post Sedation Plan On clinical assessment, the patient appears to have tolerated the sedation without complications. Patient is recovering as anticipated. Patient will continue to be monitored by nursing and may be discharged when sedation discharge criteria are met per below protocol. Upon Completions of procedure up to 15 minutes continue every 5 minute vital signs and the P.A.R. score; then discharge to a Phase I or Fast Track to Phase II per the following guidelines: * Discharge Patient to appropriate Phase II area if PAR is 8 or greater or return to pre- procedure baseline. The post - procedure orders will be as directed. * If PAR score is less than 8 or not return to pre-procedure baseline then patient will follow Phase I monitoring till PAR is reached for Phase II. The Phase I may be done in procedure room or may call to secure a Phase I area. * If naloxone or flumazenil are used for reversal, hold in Phase I for continued monitoring from when last reversal dose was given for a minimum of 60 minutes or longer pending the nurse and/or physician discretion of patient condition before discharge to Phase II. Please call the Sedation Physician to re-evaluate and complete post-note for discharge to Phase II area. Do NOT discharge from procedure sedation or Phase 1 until post- sedation evaluation note is complete by procedure /sedation MD Sedation Discharge Instructions to be given to the patient at discharge to home. Sedation Data Time Out Team Members Agree on the Following: Correct Patient, Correct Procedure and Allergies Verified Team Agrees: Yes Time Out Performed Time: 09:31 Sedation Times Sedation Start Date: 01/07/25 Sedation Start Time: 09:32 Sedation End Date: 01/07/25 Sedation End Time: 09:55 Total Sedation Time: 23 Procedure Times Procedure Start Time:: 09:40 Procedure End Time: 09:41
--- NOTE | 2025-01-07 09:28 | XCELERA ---
[id number] [id number]
[2025-01-07] MEDS ORDERED: ETOMIDATE 2 MG/ML 20 ML VIAL IV SCH (09:30)
[2025-01-07] MEDS: ETOMIDATE 2 MG/ML 20 ML VIAL IV ONE ×2 (09:41)
[2025-01-07] MEDS: carvediloL 12.5 MG TAB PO SCH (10:32)
[2025-01-07] MEDS: POTASSIUM CHLORIDE CRTAB 20 MEQ TABCR PO STA ×2 (10:32→11:40)
[2025-01-07] MEDS: APIXABAN 5 MG TABLET PO STA (10:33)
[2025-01-07 11:17] VITALS: O2SAT 96
--- NOTE | 2025-01-07 12:34 | Discharge Summary ---
Date of Service January 07, 2025 Admission HPI Per Admitting Provider Mikala is a 59 yo F with a pmhx of HTN, Afib s/p cardioversion and ablation who presents to the ER today c/o abrupt onset chest pain that woke her from sleep around 0415 this AM. Pt reports that she has a h/o paroxysmal afib x 6 years. She underwent cardioversion 3 years ago followed by an ablation in May 2022 in [place]. She has no prior h/o CAD/WI. Her symptoms began this AM with sharp midsternal chest pain that did not radiate, had no alleviating or aggravating factors, was not associated with diaphoresis, nausea, or lightheadedness. She does endorse palpitations. Her breathing was "short" due to the pain, but breathing did not exacerbate or worsen the pain. She notes this is the same pain she experienced before with rapid afib episodes. She has not had any episodes of afib since her ablation in May 2022. She is currently following with [facility]iology group. She is managed with Coreg 25mg BID and Eliquis 5mg BID. She notes compliance with her medications and denies any missed doses. She does vape for the past 5 yrs, prior to that she smoked 1 ppd x 20 yrs. 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 She denies any recent viral illness including URIs or gastroenteritis w/ n/v/d. Last echo in Oct 2022 with a hyperdynamic LV, LVEF >70%, moderate concentric LVH and mild MR, normal RVSP. Her w/u in the ER is notable for afib w/ rvr at [address] depression in the inferolateral leads. Her potassium is low at 3.1. She has been medicated in the ER with a dose of lopressor 5mg IV x2 and then was given a bolus of diltiazem 10mg IV and started on gtt. She was also treated with a dose of ASA 324mg x1. She is reports feeling more comfortable as her heart rate is now in the 100-110s, she denies pain at present, but remains in afib. She has been referred for hospital admission for further care. Specialty Data Hospitalist Discharge diagnosis: Afib w/ rvr s/p cardioversion Discharge PE: VSS, BP 135/60 GENERAL: 59 yo well-nourished middle aged WF. A&Ox4. No distress. LUNGS: Clear to auscultation bilaterally. No accessory muscle use. No W/R/R. CARDIOVASCULAR: Regular rate and rhythm. No M/G/R. No JVD. ABDOMEN: Soft, non-tender and non-distended. No palpable masses. Bowel sounds normoactive x 4 quad. EXTREMITIES: No edema. Non-tender. Peripheral pulses +2/4. PSYCHIATRIC: Cooperative. Appropriate mood and affect. SKIN: Warm, dry, intact. No rashes or lesions. Discharge Data Consultations 01/07/25 07:07 ED Decision to Admit Stat 01/07/25 07:26 Consult Cardiology Routine Hospital Course (1) Atrial fibrillation with rapid ventricular response: Acute/stable - Admit to PCU - Cardiac diet ordered - Continue diltiazem gtt and titrate per protocol for rate control - Update echocardiogram - Replace potassium in setting of hypokalemia as noted below, goal K+ >4.0 and Mag >2.0 - TSH obtained and WNL - Consult PS cardiology, appreciate recommendations - Patient would likely benefit from cardioversion given how symptomatic she is when in afib, cardio agreed and orders for cardioversion provided - Heparin gtt initiated, but d/c'd by cardiology and resumed Eliquis 5mg BID - She received sedation and underwent successful cardioversion in the ER and is currently back in NSR in the 60s - First HS trop 33 --> trended to 152 --> 215 - This was reviewed by cardiology who felt it was related to her hyperdynamic LV - Repeat EKG = NSR w/o ischemia and pt walked halls w/o chest pain (2) Hypokalemia: Acute - No recent viral GI illnesses or reporting n/v/d - Takes chlorthalidone w/o potassium supplementation, but is also on valsartan - Repleted with potassium chloride 40 meq PO x1 - pt ordered KCl 10meq po daily by attending, repeat BMP in 1 week (3) Acute electrocardiogram changes: Acute - EKG with inferolateral ST depression - HS trop 33 as above and is being trended - Given asa 324mg po x1 - CP has resolved and seems atypical for ACS - PS cardiology consulted--see above (4) Hypertension: Chronic/stable - Continue valsartan, chlorthalidone, and coreg Plan Chronic medical problems Tobacco dependence - counseled on importance of cessation Patient underwent successful cardioversion in the emergency department. Is w/o chest pain. Repeat EKG demonstrates no evidence of ischemia. Cardiology feels she is safe for d/c from their standpoint. pt is anxious to be discharged. She is medically and hemodynamically stable for discharge. Advised f/u with pcp within 1 week. Return to ER with recurrence of symptoms. Cardiology f/u and they are to contact her with her scheduled follow up appointment. Plan d/w Dr. Wiseman. Total time for discharge: 37 minutes Supervising Physician Co-Signing Physician Notes During face to face encounter, I obtained a history and physical examination, discussed hospital stay with patient and discharge instructions with patient. I discussed discharge plan of care with KRISTINA Valente. I reviewed above note and agree with it except for the following: Patient was admitted for a fib rvr with elevated troponin. Patient was quickly cardioverted with improvement in symptoms and rhythm. Troponin [place] but appeared to be reaching peak as the acceleration of the rise was decreasing. D?W cardiology and patient is cleared for discharge. Coding Level of Care Code INP/OBS EV SAME DAY LV 3,85MIN Diagnoses Atrial fibrillation with rapid ventricular response I48.91 Hypokalemia E87.6 Acute electrocardiogram changes R94.31 Hypertension I10
[2025-01-07 12:44] VITALS: BP 168/112
--- NOTE | 2025-01-07 13:30 | Electrocardiogram Report ---
Test Reason : Blood Pressure : */* mmHG Vent. Rate : 63 BPM Atrial Rate : 63 BPM P-R Int : 140 ms QRS Dur : 92 ms QT Int : 458 ms P-R-T Axes : 48 9 78 degrees QTcB Int : 468 ms Normal sinus rhythm Nonspecific T wave abnormality Anterior leads Prolonged QT Abnormal ECG When compared with ECG of 07-Jan-2025 05:45, Sinus rhythm has replaced Atrial fibrillation Vent. rate has decreased by [address] no longer depressed in Inferior leads ST no longer depressed in Lateral leads Confirmed by Eduardo Montes ([id number]) on 01/07/2025 1:29:58 PM Referred By: REFERRED SELF Confirmed By: Eduardo Montes
--- NOTE | 2025-01-07 13:44 | Electrocardiogram Report ---
Test Reason : Blood Pressure : */* mmHG Vent. Rate : 69 BPM Atrial Rate : 69 BPM P-R Int : 142 ms QRS Dur : 76 ms QT Int : 442 ms P-R-T Axes : 36 0 60 degrees QTcB Int : 473 ms Normal sinus rhythm Diffuse Nonspecific T wave abnormality Abnormal ECG When compared with ECG of 07-Jan-2025 09:36, No significant change was found Confirmed by Eduardo Montes ([id number]) on 01/07/2025 1:43:44 PM Referred By: REFERRED SELF Confirmed By: Eduardo Montes
--- NOTE | 2025-01-07 13:45 | Electrocardiogram Report ---
Test Reason : Blood Pressure : */* mmHG Vent. Rate : 69 BPM Atrial Rate : 69 BPM P-R Int : 154 ms QRS Dur : 88 ms QT Int : 436 ms P-R-T Axes : 51 10 73 degrees QTcB Int : 467 ms Sinus rhythm with Premature atrial complexes Diffuse Minor Nonspecific T wave abnormality Prolonged QT Abnormal ECG When compared with ECG of 07-Jan-2025 11:48, Premature atrial complexes are now Present Confirmed by Eduardo Montes ([id number]) on 01/07/2025 1:44:35 PM Referred By: REFERRED SELF Confirmed By: Eduardo Montes
[2025-01-07 13:49] VITALS: PULSE 63; RESP 18
[2025-01-07] MEDS ORDERED: APIXABAN 5 MG TABLET PO SCH (21:00)
[2025-01-11 07:47] LABS: Albumin 3.7 g/dL (3.8-4.8); Alpha 1 Globulin 0.2 g/dL (0.2-0.3); Alpha 2 Globulin 0.7 g/dL (0.5-0.9); Beta-1-Globulin 0.3 g/dL (0.4-0.6); Beta-2-Globulin 0.3 g/dL (0.2-0.5); Free Kappa 18.9 mg/L (3.3-19.4); Free Kappa/Lambda Ratio 1.54 (0.26-1.65); Free Lambda 12.3 mg/L (5.7-26.3); Gamma Globulin 0.8 g/dL (0.8-1.7); Monoclonal Protein Band 1 DNR g/dL (NONE DETECTED); Monoclonal Protein Band 2 DNR g/dL (NONE DETECTED); Monoclonal Protein Band 3 DNR g/dL (NONE DETECTED); Total Protein 6.1 g/dL (6.1-8.1)
== END 2025-01-07 12:42 | disposition home or self-care (01) | DRG 309 ==
LOC: ED 05:39 → INTOOBSV 07:27 → EDINP 07:27